=== PATIENT | female | born 1930 | race Caucasian/White ===

== ENCOUNTER 2016-10-27 21:06 | Inpatient (IN) | payer MEDICARE ==
[2016-10-27] MEDS ORDERED: ACETAMINOPHEN TAB 500 MG TAB PO STA (21:29)
[2016-10-27] MEDS ORDERED: DILTIAZEM 125 MG in SODIUM CHLORIDE 0.9% 100 ML IV ONE (21:30)
--- NOTE | 2016-10-27 22:05 | ED ---
General Adult HPI - General Chief complaint: Altered Mental Status Stated complaint: Confusion Time Seen by Provider: 10/27/16 21:09 Source: patient, family, EMS, RN notes reviewed Mode of arrival: EMS Limitations: altered mental status - History of Present Illness Initial comments: Patient is a pleasant 86-year-old female presenting to the emergency department as a transfer from [facility]. Patient was transferred for cardiology and neurology evaluation. Patient has history of atrial fibrillation and was found to have a heart rate around 1:30. Patient was started on Cardizem drip. Patient was confused. Patient was found by a friend on the floor. Unknown last time patient was well. Last known well is felt to be yesterday. They did do head CT which showed no acute findings. They do have concern for having a stroke. They felt patient was not a TPA candidate secondary to unknown onset. Patient is a poor historian. Patient does have difficulty with speech. Patient can only state a few words. - Related Data Home Medications Medication Instructions Recorded Confirmed Aspirin EC [Ecotrin] 325 mg PO DAILY 10/27/16 10/27/16 Lisinopril [Zestril] 20 mg PO DAILY 10/27/16 10/27/16 Metoprolol Tartrate [Lopressor] 100 mg PO BID 10/27/16 10/27/16 Simvastatin [Zocor] 20 mg PO DAILY 10/27/16 10/27/16 Verapamil HCl [Verapamil ER] 120 mg PO DAILY 10/27/16 10/27/16 Allergies Allergy/AdvReac Type Severity Reaction Status Date / Time Penicillins Allergy Dyspnea/JULIO Verified 10/27/16 21:39 H codeine AdvReac Nausea & Verified 10/27/16 21:39 Vomiting Review of Systems ROS Statement: Those systems with pertinent positive or pertinent negative responses have been documented in the HPI. ROS Other: All systems not noted in ROS Statement are negative. Limitations: ROS unobtainable due to patients medical condition Past Medical History Past Medical History: Atrial Fibrillation, Hypertension, Osteoarthritis (OA) History of Any Multi-Drug Resistant Organisms: None Reported Past Surgical History: Cholecystectomy, Hysterectomy, Tonsillectomy Additional Past Surgical History / Comment(s): hip surgery, knee surgery Past Psychological History: No Psychological Hx Reported Smoking Status: Never smoker Past Alcohol Use History: None Reported Past Drug Use History: None Reported General Exam Limitations: altered mental status General appearance: alert, in no apparent distress, other (Limited speech. There does appear to be some right-sided neglect.) Head exam: Present: atraumatic, normocephalic Eye exam: Present: normal appearance, PERRL, EOMI (Patient needs to be told several times to gaze to the right.) ENT exam: Present: normal oropharynx Neck exam: Present: normal inspection. Absent: tenderness Respiratory exam: Present: normal lung sounds bilaterally Cardiovascular Exam: Present: tachycardia, irregular rhythm GI/Abdominal exam: Present: soft. Absent: tenderness Extremities exam: Present: pedal edema Neurological exam: Present: alert, altered Expanded Patient oriented to: Present: person Speech: Present: receptive aphasia, expressive aphasia Cranial nerves: EOM's Intact: Normal, Facial Sensation: Normal Sensory exam: Upper Extremity Light Touch: Normal, Lower Extremity Light Touch: Normal Motor strength exam: RUE: 5 (Patient has difficulty holding arm when instructed on the right side of her body however does well was instructed on the left side. ), LUE: 5, RLE: 5, LLE: 5 Eye Response: (4) open spontaneously Motor Response: (6) obeys commands Verbal Response: (3) inappropriate words Psychiatric exam: Present: normal affect, normal mood Skin exam: Present: erythema (Erythema left fernandez) Course Vital Signs 10/27/16 10/27/16 10/27/16 21:22 21:30 21:45 Temperature 101.0 F H Pulse Rate 158 H 148 H 166 H Respiratory 19 19 19 Rate Blood Pressure 179/119 203/115 195/135 O2 Sat by Pulse 92 L 97 95 Oximetry 10/27/16 10/27/16 22:00 22:10 Temperature Pulse Rate 134 H 166 H Respiratory 18 20 Rate Blood Pressure 195/109 192/135 O2 Sat by Pulse 94 L 96 Oximetry EKG Findings - EKG Comments: EKG Findings:: A. fib with RVR, rate 136. QRS 118. QT 314. QTC 472. Right axis. Right bundle branch block. Inverted T waves inferior and lateral. Medical Decision Making - Medical Decision Making Patient reevaluated. Heart rate remains 1:30. Temperature remains 100.5. Patient will be given further fluid. Tylenol has been administered. Cardizem drip was increased to 15. Patient and family were updated on results and plan. Erythema of the left fernandez is reported as per the chronic per several family members. Nevertheless with elevated temperature patient will be treated with antibiotics for this. Following for concern of possible cellulitis patient does meet sepsis criteria diagnosed at 11 PM. Case was discussed in detail with Dr. Worthington, covering for Dr. silver, who admits for Dr. Askew. He will admit. No heparin at this time. Consults will also be placed for cardiology, neurology, and orthopedics. [facility] - Lab Data Result diagrams: 10/27/16 21:30 10/27/16 21:30 Lab Results 10/27/16 10/27/16 10/27/16 Range/Units 21:30 21:30 21:30 WBC 13.4 H (3.8-10.6) k/uL RBC 4.90 (3.80-5.40) m/uL Hgb 15.7 (11.4-16.0) gm/dL Hct 47.4 H (34.0-46.0) % MCV 96.8 (80.0-100.0) fL MCH 32.0 (25.0-35.0) pg MCHC 33.1 (31.0-37.0) g/dL RDW 16.8 H (11.5-15.5) % Plt Count 194 (150-450) k/uL Neutrophils % 90 % Lymphocytes % 6 % Monocytes % 3 % Eosinophils % 0 % Basophils % 0 % Neutrophils # 12.1 H (1.3-7.7) k/uL Lymphocytes # 0.8 L (1.0-4.8) k/uL Monocytes # 0.3 (0-1.0) k/uL Eosinophils # 0.0 (0-0.7) k/uL Basophils # 0.0 (0-0.2) k/uL Anisocytosis Slight Macrocytosis Slight PT (9.0-12.0) sec INR (<1.2) APTT (22.0-30.0) sec Sodium 144 (137-145) mmol/L Potassium 4.8 (3.5-5.1) mmol/L Chloride 112 H (98-107) mmol/L Carbon Dioxide 19 L (22-30) mmol/L Anion Gap 13 mmol/L BUN 27 H (7-17) mg/dL Creatinine 1.22 H (0.52-1.04) mg/dL Est GFR (MDRD) Af Amer 51 (>60 ml/min/1.73 sqM) Est GFR (MDRD) Non-Af 42 (>60 ml/min/1.73 sqM) Glucose 102 H (74-99) mg/dL Plasma Lactic Acid Gurdeep 2.6 H* (0.7-2.0) mmol/L Calcium 9.1 (8.4-10.2) mg/dL Total Bilirubin 1.0 (0.2-1.3) mg/dL AST 20 (14-36) U/L ALT 20 (9-52) U/L Alkaline Phosphatase 77 (38-126) U/L Total Protein 6.8 (6.3-8.2) g/dL Albumin 4.1 (3.5-5.0) g/dL Urine Color Urine Appearance (Clear) Urine pH (5.0-8.0) Ur Specific [place] (1.001-1.035) Urine Protein (Negative) Urine Glucose (UA) (Negative) Urine Ketones (Negative) Urine Blood (Negative) Urine Nitrite (Negative) Urine Bilirubin (Negative) Urine Urobilinogen (<2.0) mg/dL Ur Leukocyte Esterase (Negative) Urine RBC (0-5) /hpf Urine WBC (0-5) /hpf Urine Bacteria (None) /hpf Hyaline Casts (0-2) /lpf Urine Mucus (None) /hpf 10/27/16 10/27/16 Range/Units 21:30 21:30 WBC (3.8-10.6) k/uL RBC (3.80-5.40) m/uL Hgb (11.4-16.0) gm/dL Hct (34.0-46.0) % MCV (80.0-100.0) fL MCH (25.0-35.0) pg MCHC (31.0-37.0) g/dL RDW (11.5-15.5) % Plt Count (150-450) k/uL Neutrophils % % Lymphocytes % % Monocytes % % Eosinophils % % Basophils % % Neutrophils # (1.3-7.7) k/uL Lymphocytes # (1.0-4.8) k/uL Monocytes # (0-1.0) k/uL Eosinophils # (0-0.7) k/uL Basophils # (0-0.2) k/uL Anisocytosis Macrocytosis PT 12.8 H (9.0-12.0) sec INR 1.3 H (<1.2) APTT 23.8 (22.0-30.0) sec Sodium (137-145) mmol/L Potassium (3.5-5.1) mmol/L Chloride (98-107) mmol/L Carbon Dioxide (22-30) mmol/L Anion Gap mmol/L BUN (7-17) mg/dL Creatinine (0.52-1.04) mg/dL Est GFR (MDRD) Af Amer (>60 ml/min/1.73 sqM) Est GFR (MDRD) Non-Af (>60 ml/min/1.73 sqM) Glucose (74-99) mg/dL Plasma Lactic Acid Gurdeep (0.7-2.0) mmol/L Calcium (8.4-10.2) mg/dL Total Bilirubin (0.2-1.3) mg/dL AST (14-36) U/L ALT (9-52) U/L Alkaline Phosphatase (38-126) U/L Total Protein (6.3-8.2) g/dL Albumin (3.5-5.0) g/dL Urine Color Yellow Urine Appearance Clear (Clear) Urine pH 5.0 (5.0-8.0) Ur Specific [place] 1.015 (1.001-1.035) Urine Protein 1+ H (Negative) Urine Glucose (UA) Negative (Negative) Urine Ketones Trace H (Negative) Urine Blood Trace H (Negative) Urine Nitrite Negative (Negative) Urine Bilirubin Negative (Negative) Urine Urobilinogen <2.0 (<2.0) mg/dL Ur Leukocyte Esterase Negative (Negative) Urine RBC 1 (0-5) /hpf Urine WBC <1 (0-5) /hpf Urine Bacteria Rare H (None) /hpf Hyaline Casts 4 H (0-2) /lpf Urine Mucus Rare H (None) /hpf - Radiology Data Radiology results: image reviewed (Chest x-ray shows no acute process. X-ray of the right humerus shows severe chronic changes. Reported no definite acute fracture. X-ray of the right pelvis shows no definite acute fracture.) Critical Care Time Critical Care Time: Yes Total Critical Care Time: 32 Disposition Clinical Impression: CVA (cerebral vascular accident), Atrial fibrillation with RVR, Sepsis, Cellulitis Disposition: ADMITTED IP TO THIS HOSP Condition: Serious Referrals: Stepan Jordan DO [Primary Care Provider] - 1-2 days Decision Time: 23:01
[2016-10-27 22:06] LABS: Anisocytosis Slight; Basophils % (A) 0 %; CH 30.8; Eosinophils % (A) 0 %; HCT 47.4 % (34.0-46.0); HDW 2.43; HGB 15.7 gm/dL (11.4-16.0); Luc # (Auto) 0.16; Luc % (Auto) 1; Lymphocytes # (A) 0.8 k/uL (1.0-4.8); Lymphocytes % (A) 6 %; MCHC 33.1 g/dL (31.0-37.0); MCV 96.8 fL (80.0-100.0); Macrocytosis Slight; Mean Platelet Volume 9.4; Monocytes # (A) 0.3 k/uL (0-1.0); Monocytes % (A) 3 %; Neutrophils # (A) 12.1 k/uL (1.3-7.7); Neutrophils % (A) 90 %; RDW 16.8 % (11.5-15.5); WBC 13.4 k/uL (3.8-10.6); WBC (Perox) 12.62
[2016-10-27 22:08] LABS: Appearance,Urine Clear (Clear); Bacteria,Urine Rare /hpf; Bilirubin,Urine Negative (Negative); Glucose,Urine (UA) Negative (Negative); Ketones,Urine Trace (Negative); Leukocyte Esterase,Urine Negative (Negative); Mucus,Urine Rare /hpf; Nitrite,Urine Negative (Negative); Particle Count 1261; Protein,Urine 1+ (Negative); RBC,Urine 1 /hpf (0-5); Specific Gravity,Urine 1.015 (1.001-1.035); UA Billing (MACRO vs. MICRO) MICRO; Urobilinogen,Urine <2.0 mg/dL (<2.0); WBC,Urine <1 /hpf (0-5)
[2016-10-27] MEDS: SODIUM CHLORIDE 0.9% 500 ML IV SCH ×2 (22:13→22:46)
[2016-10-27 22:15] LABS: INR 1.3 (<1.2); Partial Thromboplastin Time 23.8 sec (22.0-30.0); Prothrombin Time 12.8 sec (9.0-12.0)
[2016-10-27 22:16] LABS: Calcium 9.1 mg/dL (8.4-10.2); Potassium 4.8 mmol/L (3.5-5.1); Total Protein 6.8 g/dL (6.3-8.2)
[2016-10-27] MEDS ORDERED: SODIUM CHLORIDE 0.9% 1,000 ML IV STA (22:37)
[2016-10-27] MEDS ORDERED: SODIUM CHLORIDE 0.9% IV STA (22:37)
--- NOTE | 2016-10-27 22:42 | XR ---
EXAM: XR Right Hip With Pelvis When Performed, 2 or 3 Views CLINICAL HISTORY: Reason: Pain TECHNIQUE: Two views of the right hip, with frontal view of the pelvis. COMPARISON: No relevant prior studies available. FINDINGS: Bones/joints: The bones are osteopenic. Previous bilateral total hip replacement, with heterotopic ossification surrounding both hips. The hip replacements appear intact on the right and where included on the left. There is no acute fracture or dislocation seen. Lower lumbar degenerative changes noted. Soft tissues: Unremarkable. Vasculature: Arterial vascular calcifications. IMPRESSION: 1. No definite evidence of acute fracture, nor hip dislocation. Note, nondisplaced fractures may initially be inapparent, for which short-term follow-up could be considered as clinically indicated. 2. 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 3. No priors.
--- NOTE | 2016-10-27 22:46 | XR ---
EXAM: XR Right Humerus, 2 or More Views CLINICAL HISTORY: Reason: Pain TECHNIQUE: Frontal and lateral views of the right humerus. COMPARISON: Current chest radiograph, dictated separately. FINDINGS: Bones/joints: There is severe chronic appearing deformity of the right shoulder, with diffuse joint space narrowing and bony remodeling involving the acromion, glenoid and humeral head and neck, along with prominent osteophyte formation. There is linear lucency through the markedly thinned glenoid, that could represent a nondisplaced fracture although of uncertain chronicity. Allowing for this marked bony remodeling, there is no definite acute fracture seen of the humerus and no evidence of dislocation. Soft tissues: No radiopaque foreign body. IMPRESSION: 1. Severe chronic remodeling of the right shoulder including proximal humerus and glenoid, where there may be a subtle nondisplaced fracture present superiorly, of indeterminate chronicity. 2. Allowing for this, no acute displaced fracture or evidence of dislocation seen.
--- NOTE | 2016-10-27 22:48 | XR ---
EXAM: XR Chest, 1 View CLINICAL HISTORY: Reason: fever TECHNIQUE: Frontal view of the chest. COMPARISON: Earlier portable chest at 1738 hrs. FINDINGS: Lungs: Minimal linear opacity suggesting atelectasis or scarring at the right base. No new or enlarging infiltrate. No overt CHF. Pleural space: Unremarkable. No pneumothorax. Heart: Stable cardiomegaly. 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 Bones/joints: Osteopenia and degenerative changes, with severe chronic appearing bony remodeling of both shoulders, right greater than left. IMPRESSION: No significant change since earlier exam of the same day, as above.
[2016-10-27] MEDS ORDERED: ASPIRIN 325 MG TAB PO STA (23:02)
[2016-10-27] MEDS ORDERED: LEVOFLOXACIN 750MG-D5W PMX 750 MG in DEXTROSE/WATER 1 150ML.BAG IVPB STA (23:03)
[2016-10-28 03:30] VITALS: BMI 31.9
[2016-10-28 06:45] LABS: Cholesterol 85 mg/dL (<200); HDL Cholesterol 36 mg/dL (40-60); Triglycerides 87 mg/dL (<150)
--- NOTE | 2016-10-28 09:20 | P.CNOR ---
History of Present Illness - [facility] Consult date: 10/28/16 Consult reason: joint pain (Bilateral shoulder pain) History of present illness: This is an 86-year-old female admitted to [facility] with possible CVA. She complains of right shoulder pain upon admission. She has no history of recent trauma or injury. She does not recall injury to the shoulder in the past or history of fracture. We're consulted for orthopedic evaluation. Past Medical History Past Medical History: Atrial Fibrillation, Heart Failure, Hypertension, Osteoarthritis (OA) Additional Past Medical History / Comment(s): Melva fever as a child History of Any Multi-Drug Resistant Organisms: None Reported Past Surgical History: Cholecystectomy, Hysterectomy, Tonsillectomy Additional Past Surgical History / Comment(s): hip surgery, knee surgery Past Anesthesia/Blood Transfusion Reactions: No Reported Reaction Past Psychological History: No Psychological Hx Reported Smoking Status: Never smoker Past Alcohol Use History: None Reported Past Drug Use History: None Reported - Past Family History Father Family Medical History: Myocardial Infarction (SC) Medications and Allergies Home Medications Medication Instructions Recorded Confirmed Type Aspirin EC [Ecotrin] 325 mg PO DAILY 10/27/16 10/27/16 History Lisinopril [Zestril] 20 mg PO DAILY 10/27/16 10/27/16 History Metoprolol Tartrate [Lopressor] 100 mg PO BID 10/27/16 10/27/16 History Simvastatin [Zocor] 20 mg PO DAILY 10/27/16 10/27/16 History Verapamil HCl [Verapamil ER] 120 mg PO DAILY 10/27/16 10/27/16 History Allergies Allergy/AdvReac Type Severity Reaction Status Date / Time Penicillins Allergy Dyspnea/JULIO Verified 10/27/16 21:39 H codeine AdvReac Nausea & Verified 10/27/16 21:39 Vomiting Physical Examination This is a pleasant 86-year-old female in no acute distress. She is alert but has some confusion. She is able to answer questions appropriately but does not recall her history very well. Her grandson is present at bedside who helps with history. Exam of the head neck reveal no obvious deformities. She has really good cervical spine motion without difficulty or pain. There is no pain on palpation about cervical spine or paraspinal musculature. Exam of the upper extremities reveals limited active motion to bilateral shoulders. I am able to passively move her through posterior full range of motion with mild pain. There is crepitus with motion of bilateral shoulders. She has fairly good elbow, wrist and finger motion without difficulty. Neurovascular status the upper extremities is intact. The patient can lift each leg off the bed independently. There is no hip pain with logroll. She has full foot and ankle motion bilaterally. Neurovascular status to the lower extremities is intact. Results X-rays of the right humerus reveal chronic degenerative changes. There are findings suspicious for remote proximal humerus fracture. No acute fractures identified. - Labs Labs: Abnormal Lab Results - Last 24 Hours (Table) 10/27/16 10/27/16 10/27/16 Range/Units 21:30 21:30 21:30 WBC 13.4 H (3.8-10.6) k/uL Hct 47.4 H (34.0-46.0) % RDW 16.8 H (11.5-15.5) % Neutrophils # 12.1 H (1.3-7.7) k/uL Lymphocytes # 0.8 L (1.0-4.8) k/uL PT (9.0-12.0) sec INR (<1.2) Chloride 112 H (98-107) mmol/L Carbon Dioxide 19 L (22-30) mmol/L BUN 27 H (7-17) mg/dL Creatinine 1.22 H (0.52-1.04) mg/dL Glucose 102 H (74-99) mg/dL Plasma Lactic Acid Gurdeep 2.6 H* (0.7-2.0) mmol/L HDL Cholesterol (40-60) mg/dL Urine Protein (Negative) Urine Ketones (Negative) Urine Blood (Negative) Urine Bacteria (None) /hpf Hyaline Casts (0-2) /lpf Urine Mucus (None) /hpf 10/27/16 10/27/16 10/28/16 Range/Units 21:30 21:30 06:12 WBC (3.8-10.6) k/uL Hct (34.0-46.0) % RDW (11.5-15.5) % Neutrophils # (1.3-7.7) k/uL Lymphocytes # (1.0-4.8) k/uL PT 12.8 H (9.0-12.0) sec INR 1.3 H (<1.2) Chloride (98-107) mmol/L Carbon Dioxide (22-30) mmol/L BUN (7-17) mg/dL Creatinine (0.52-1.04) mg/dL Glucose (74-99) mg/dL Plasma Lactic Acid Gurdeep (0.7-2.0) mmol/L HDL Cholesterol 36 L (40-60) mg/dL Urine Protein 1+ H (Negative) Urine Ketones Trace H (Negative) Urine Blood Trace H (Negative) Urine Bacteria Rare H (None) /hpf Hyaline Casts 4 H (0-2) /lpf Urine Mucus Rare H (None) /hpf H & H 10/27/16 Range/Units 21:30 Hgb 15.7 (11.4-16.0) gm/dL Hct 47.4 H (34.0-46.0) % Coagulation 10/27/16 Range/Units 21:30 INR 1.3 H (<1.2) Result Diagrams: 10/27/16 21:30 10/27/16 21:30 Assessment and Plan (1) CVA (cerebral vascular accident) Status: Acute (2) Degenerative arthritis of shoulder region Status: Acute Plan: The clinical and x-ray findings are discussed with the patient and her grandson. She is offered a cortisone injection to bilateral shoulders. I'll check with internal medicine to be sure that they're okay with the cortisone injections. I've also ordered x-rays of both shoulders. We'll continue to follow from orthopedic standpoint.
--- NOTE | 2016-10-28 09:45 | XR ---
EXAMINATION TYPE: XR shoulder limited bilateral DATE OF EXAM: 10/28/2016 CLINICAL HISTORY: Pain TECHNIQUE: Three views of the bilateral shoulders are obtained. COMPARISON: 10/27/2016 FINDINGS: Right shoulder: There is chronic elevation of the right humeral head relative to the central glenoid axis compatible with chronic rotator cuff tear. There is remodeling of the humeral head as well as th e undersurface of the acromium. Previously noted linear lucency is not verified with certainty and th is may be positional in nature. No obvious displaced fracture is identified at this time. Left shoulder: No evidence for fracture or dislocation. Degenerative spurring greater tuberosity. Mil d remodeling of the glenoid. IMPRESSION: 1. Severe degenerative changes right glenohumeral joint space with bony remodeling and changes of chr onic rotator cuff tear. No obvious displaced fracture at this time. 2. Degenerative changes in left shoulder.
--- NOTE | 2016-10-28 09:50 | US ---
EXAMINATION TYPE: US carotid duplex BILAT DATE OF EXAM: 10/28/2016 COMPARISON: CT head and brain CLINICAL HISTORY: Stenosis. CVA, Atrial fibrillation EXAM MEASUREMENTS: RIGHT: Peak Systolic Velocity (PSV) cm/sec ----- Right CCA: 51.4 ----- Right ICA: 63.6 ----- Right ECA: 83.2 ICA/CCA ratio: 1.2 RIGHT: End Diastole cm/sec ----- Right CCA: 9.5 ----- Right ICA: 19.7 ----- Right ECA: 6.5 LEFT: Peak Systolic Velocity (PSV) cm/sec ----- Left CCA: 70.7 ----- Left ICA: 81.0 ----- Left ECA: 55.0 ICA/CCA ratio: 1.1 LEFT: End Diastole cm/sec ----- Left CCA: 13.7 ----- Left ICA: 11.1 ----- Left ECA: 7.4 VERTEBRALS (direction of flow): Right Vertebral: Antegrade Left Vertebral: Antegrade Mild to moderate intimal wall thickening is noted in bilateral carotid systems, but PSV is wnl bilate rally. Cardiac arrhythmia is noted. Incidental finding of enlarged and nodular thyroid gland with lar gest discreet nodule in left thyroid (nodule size = 1.9 x 2.0 x 1.7cm. IMPRESSION: No evidence for hemodynamically significant stenosis. Criteria for Assigning % of Stenosis / Diameter reduction (Estimation based on the indirect measurements of the internal carotid artery velocities (ICA PSV). 1. Normal (no stenosis)=ICA PSV < 125 cm/s: ratio < 2.0: ICA EDV<40 cm/s. 2. Less than 50% stenosis=ICA PSV < 125 cm/s: ratio < 2.0: ICA EDV<40 cm/s. 3. 50 to 69% stenosis=ICA PSV of 125 to 230 cm/s: ration 2.0 ? 4.0: ICA EDV 40-100 cm/s. 4. Greater than 70% stenosis to near occlusion= ICA PSV > 230 cm/s: ratio > 4.0: ICA EDV > 100 cm/s. 5. Near occlusion= ICA PSV velocities may be low or undetectable: variable ratio and ICA EDV. 6. Total occlusion=unable to detect flow.
--- NOTE | 2016-10-28 10:25 | ECHOF ---
Referral Reason:Thrombus MEASUREMENTS -------- HEIGHT: 162.6 cm WEIGHT: 68.5 kg BP: 149/89 IVSd: 1.7 cm (0.6 - 1.1) LVIDd: 3.4 cm (3.9 - 5.3) LVPWd: 1.4 cm (0.6 - 1.1) IVSs: 1.7 cm LVIDs: 2.4 cm LVPWs: 1.6 cm LAESV Index (A-L): 87.15 ml/m Ao Diam: 2.9 cm (2.0 - 3.7) AV Cusp: 1.8 cm (1.5 - 2.6) LA Diam: 4.8 cm (2.7 - 3.8) MV EXCURSION: 11.106 mm (> 18.000) MV EF SLOPE: 67 mm/s (70 - 150) EPSS: 0.1 cm MV E Lee: 1.62 m/s MV DecT: 269 ms MV A Lee: 0.39 m/s MV E/A Ratio: 4.18 RAP: 15.00 mmHg RVSP: 73.89 mmHg FINDINGS -------- Atrial fibrillation. This was a technically good study. The left ventricular size is normal. There is moderate concentric left ventricular hypertrophy. Overall left ventricular systolic function is normal with, an EF between 55 - 60 %. The right ventricle is normal in size and function. LA is severely dilated >40 ml/m2 RA appears enlarged. There is mild aortic valve sclerosis. The mitral valve leaflets are moderately thickened. Moderate mitral annular calcification present. [id number] mitral regurgitation is present. Moderate to severe tricuspid regurgitation present. There is severe pulmonary hypertension. The right ventricular systolic pressure, as measured by Doppler, is 73.89mmHg. There is no pulmonic regurgitation present. The aortic root size is normal. There is no pericardial effusion. CONCLUSIONS -------- 1. Atrial fibrillation. 2. Moderate to severe tricuspid regurgitation present. 3. There is severe pulmonary hypertension. 4. There is no pulmonic regurgitation present. 5. The aortic root size is normal. 6. There is no pericardial effusion. 7. This was a technically good study. 8. There is moderate concentric left ventricular hypertrophy. 9. Overall left ventricular systolic function is normal with, an EF between 55 - 60 %. 10. LA is severely dilated >40 ml/m2 11. RA appears enlarged. 12. There is mild aortic valve sclerosis. 13. Moderate mitral annular calcification present. 14. [id number] mitral regurgitation is present. LANDFILL GRADER: Viridiana Araujo RDCS
--- NOTE | 2016-10-28 12:07 | P.CRDCN ---
History of Present Illness Consult date: 10/28/16 Reason for Consult (text): atrial fibrillation with RVR Chief complaint: confusion, fall History of present illness: This is a pleasantly confused 86-year-old female patient, HPI was obtained from the records to the patient's confusion. Limited review of systems was also obtained as patient cannot recall events surrounding her admission, was clearly found on the floor by a neighbor but denies falling and being found on the floor. She apparently has a known history of atrial fibrillation and hypertension. She has not been on anticoagulation at home for unknown reasons however likely secondary to fall risk and risk of bleeding. She initially presented to the emergency department at [facility] after being found on the floor by a friend patient was confused and is unknown the last time the patient was in her normal state. Computed tomography scan done showed no acute findings. She was found to be in each fibrillation with rapid ventricular response and started on Cardizem drip. 2-D echo with Doppler done this morning shows normal systolic function with an ejection fraction of 55-60% , severely dilated LA, enlarged RA, mild aortic valve sclerosis, mild to moderate mitral regurgitation and moderate to severe tricuspid regurgitation with severe pulmonary hypertension. On examination this morning, patient is resting comfortably in bed. Again she is fairly confused, unclear as to whether or not she follows with a nurse transitional. She does not recall falling or being found on the floor. Cardizem drip remains at 15 mg an hour with her heart rate controlled at this time. Laboratory values showed an elevated white blood cell count and lactic acid level and a BUN of 27 and creatinine 1.22. Past Medical History Past Medical History: Atrial Fibrillation, Heart Failure, Hypertension, Osteoarthritis (OA) Additional Past Medical History / Comment(s): Melva fever as a child History of Any Multi-Drug Resistant Organisms: None Reported Past Surgical History: Cholecystectomy, Hysterectomy, Tonsillectomy Additional Past Surgical History / Comment(s): hip surgery, knee surgery Past Anesthesia/Blood Transfusion Reactions: No Reported Reaction Past Psychological History: No Psychological Hx Reported Smoking Status: Never smoker Past Alcohol Use History: None Reported Past Drug Use History: None Reported - Past Family History Father Family Medical History: Myocardial Infarction ([place]) Medications and Allergies Home Medications Medication Instructions Recorded Confirmed Type Aspirin EC [Ecotrin] 325 mg PO DAILY 10/27/16 10/27/16 History Lisinopril [Zestril] 20 mg PO DAILY 10/27/16 10/27/16 History Metoprolol Tartrate [Lopressor] 100 mg PO BID 10/27/16 10/27/16 History Simvastatin [Zocor] 20 mg PO DAILY 10/27/16 10/27/16 History Verapamil HCl [Verapamil ER] 120 mg PO DAILY 10/27/16 10/27/16 History Allergies Allergy/AdvReac Type Severity Reaction Status Date / Time Penicillins Allergy Dyspnea/JULIO Verified 10/27/16 21:39 H codeine AdvReac Nausea & Verified 10/27/16 21:39 Vomiting Physical Exam Vitals: Vital Signs Temp Pulse Pulse Resp BP BP Pulse Ox 10/28/16 08:00 97.1 F L 98 16 96/67 95 10/28/16 04:00 97.3 F L 105 H 18 126/89 93 L 10/28/16 00:00 98.6 F 144 H 18 149/89 94 L 10/27/16 23:28 144 H 19 170/97 10/27/16 22:57 100.5 F H 148 H 19 187/101 96 10/27/16 22:50 130 H 20 190/91 94 L 10/27/16 22:35 140 H 19 227/128 96 10/27/16 22:10 166 H 20 192/135 96 10/27/16 22:00 134 H 18 195/109 94 L 10/27/16 21:45 166 H 19 195/135 95 10/27/16 21:30 148 H 19 203/115 97 10/27/16 21:22 101.0 F H 158 H 19 179/119 92 L Intake and Output 10/27/16 10/28/16 10/28/16 22:59 06:59 14:59 Intake Total 4393 800 Output Total 600 Balance -600 4393 800 Intake: Intake, IV Titration 2620 800 Amount Levofloxacin 750Mg-D5w 100 Pmx 750 mg In Dextrose/ Water 1 150ml.bag @ 100 mls/hr IVPB Q24H T[facility]ENCE Rx#: [id number] Sodium Chloride 0.9% 1, 800 000 ml @ 100 mls/hr IV . Q10H TERRENCE Rx#:[id number] Sodium Chloride 0.9% 1, 2520 000 ml @ 999 mls/hr IV . Q1H1M STA Rx#:[id number] Oral 1773 Output: Urine 600 Other: Voiding Method Bedpan Weight 84.368 kg 68.5 kg PHYSICAL EXAMINATION: HEENT: Head is atraumatic, normocephalic. Pupils equal, round. Neck is supple. There is no elevated jugular venous pressure. HEART EXAMINATION: Heart sounds irregularly irregular, S1 and S2 normal with a systolic murmur. CHEST EXAMINATION: Lungs are clear to auscultation and precussion. No chest wall tenderness is noted on palpation or with deep breathing. ABDOMEN: Soft, nontender. Bowel sounds are heard. No organomegaly noted. EXTREMITIES: Diminished peripheral pulses with evidence of 2+ peripheral edema and evidence of lower leg cellulitis. NEUROLOGIC patient is awake, alert and oriented to person. . Results 10/27/16 21:30 10/27/16 21:30 Cardiac Enzymes 10/27/16 Range/Units 21:30 AST 20 (14-36) U/L Coagulation 10/27/16 Range/Units 21:30 PT 12.8 H (9.0-12.0) sec APTT 23.8 (22.0-30.0) sec Lipids 10/28/16 Range/Units 06:12 Triglycerides 87 (<150) mg/dL Cholesterol 85 (<200) mg/dL HDL Cholesterol 36 L (40-60) mg/dL CBC 10/27/16 Range/Units 21:30 WBC 13.4 H (3.8-10.6) k/uL RBC 4.90 (3.80-5.40) m/uL Hgb 15.7 (11.4-16.0) gm/dL Hct 47.4 H (34.0-46.0) % Plt Count 194 (150-450) k/uL Comprehensive Metabolic Panel 10/27/16 Range/Units 21:30 Sodium 144 (137-145) mmol/L Potassium 4.8 (3.5-5.1) mmol/L Chloride 112 H (98-107) mmol/L Carbon Dioxide 19 L (22-30) mmol/L BUN 27 H (7-17) mg/dL Creatinine 1.22 H (0.52-1.04) mg/dL Glucose 102 H (74-99) mg/dL Calcium 9.1 (8.4-10.2) mg/dL AST 20 (14-36) U/L ALT 20 (9-52) U/L Alkaline Phosphatase 77 (38-126) U/L Total Protein 6.8 (6.3-8.2) g/dL Albumin 4.1 (3.5-5.0) g/dL Current Medications Generic Name Dose Route Start Last Admin Trade Name Freq PRN Reason Stop Dose Admin Aspirin 325 mg 10/28/16 23:03 Aspirin PO DAILY T[facility]ENCE Levofloxacin 750 mg/ IV 150 mls @ 100 mls/hr 10/29/16 09:00 Solution IVPB Q48H [facility] Sodium Chloride 1,000 mls @ 75 mls/hr 10/28/16 10:45 Saline 0.9% IV .[id number] TERRENCE Methylprednisolone Acetate 40 mg 10/29/16 09:00 Depo-Medrol INTRAARTIC 10/29/16 09:01 ONCE ONE Methylprednisolone Acetate 40 mg 10/29/16 09:00 Depo-Medrol INTRAARTIC 10/29/16 09:01 ONCE ONE Metoprolol Tartrate 50 mg 10/28/16 10:45 Lopressor PO TID TERRENCE Verapamil HCl 40 mg 10/28/16 10:45 Isoptin PO BID TERRENCE Intake and Output 10/27/16 10/28/16 10/28/16 22:59 06:59 14:59 Intake Total 4393 800 Output Total 600 Balance -600 4393 800 Intake: Intake, IV Titration 2620 800 Amount Levofloxacin 750Mg-D5w 100 Pmx 750 mg In Dextrose/ Water 1 150ml.bag @ 100 mls/hr IVPB Q24H TERRENCE Rx#: [id number] Sodium Chloride 0.9% 1, 800 000 ml @ 100 mls/hr IV . Q10H TERRENCE Rx#:[id number] Sodium Chloride 0.9% 1, 2520 000 ml @ 999 mls/hr IV . Q1H1M STA Rx#:[id number] Oral 1773 Output: Urine 600 Other: Voiding Method Bedpan Weight 84.368 kg 68.5 kg 10/27/16 21:30 10/27/16 21:30 EKG Interpretations (text) Atrial fibrillation Assessment and Plan Plan: Assessment and plan #1 probable CVA #2 atrial fibrillation, likely chronic, with rapid ventricular response #3 hypertension #4 confusion #5 fall Cardiology's perspective, we will start the patient on verapamil 40 mg by mouth twice a day as well as metoprolol tartrate 50 mg by mouth 3 times a day. We will stop the IV Cardizem. We'll continue to follow the patient and provide further recommendations accordingly. CATERING SERVICE MANAGER note has been reviewed, I agree with a documented findings and plan of care. Patient was seen and examined.
[2016-10-28] MEDS: METOPROLOL TARTRATE 50 MG TAB PO SCH ×3 (12:26→23:40)
[2016-10-28] MEDS: VERAPAMIL 40 MG TAB PO SCH ×2 (12:26→20:55)
[2016-10-28] MEDS: SODIUM CHLORIDE 0.9% 1,000 ML IV SCH ×2 (12:26→23:42)
--- NOTE | 2016-10-28 14:07 | P.HPIM ---
History of Present Illness H&P Date: 10/28/16 Chief Complaint: Altered mental status Ms. Katz is a 70-year-old female with a known history of acute fibrillation, Chronic, hypertension and are sure that this presented to emergency room as a transfer from [facility]. Apparently patient was found in the floor by her neighbor but the patient denied any fall. Patient was later taken to [facility]. Patient was found to be in atrial fibrillation with a rapid ventricular rate of 130. Patient was subsequently transferred to [facility] for evaluation by cardiology and neurology. Patient was very confused at the time and CT head was done which was negative as per the records. Otherwise the patient is a poor historian. Patient denies any complaints of fever chills recently. No cough or sputum production. No recent illnesses. Patient does have chronic lower except swelling/lymphedema for a long time. Patient was prescribed Lasix previously but she does not want to take it. Patient was initially started on Cardizem drip. Heart rate is better controlled now. Patient was also was dehydrated and her lactic acid was elevated which is normalized now. Cardiology has seen the patient and her vehicle was done showed normal ejection fraction of 55-60% and a severely dilated left atrium and enlarged right atrium with mild aortic wall sclerosis and moderate mitral regurgitation and moderate to severe tricuspid regurgitation and severe pulmonary hypertension. Review of Systems Constitutional: Patient denies any fever or chills . No generalized weakness or weight loss. Abdomen: Patient denied nausea vomiting and diarrhea and abdominal pain. Cardiovascular: Patient denies any chest pain or short of breath no palpitations. Respiratory: patient denied any cough is from production. No shortness of breath Neurologic: Patient denied any numbness or tingling headache. Musculoskeletal: Patient denies any complaints of joint swelling or deformity. Skin: Patient does have left wrist skin wound. Patient does have a chronic bilateral lower extremity swelling Psychiatric: Negative Endocrine: No heat or cold intolerance. No recent weight gain. Genitourinary: No dysuria or hematuria. Complete review of stones could not be a peripheral the patient patient is a poor historian. Past Medical History Past Medical History: Atrial Fibrillation, Heart Failure, Hypertension, Osteoarthritis (OA) Additional Past Medical History / Comment(s): Melva fever as a child History of Any Multi-Drug Resistant Organisms: None Reported Past Surgical History: Cholecystectomy, Hysterectomy, Tonsillectomy Additional Past Surgical History / Comment(s): hip surgery, knee surgery Past Anesthesia/Blood Transfusion Reactions: No Reported Reaction Past Psychological History: No Psychological Hx Reported Smoking Status: Never smoker Past Alcohol Use History: None Reported Past Drug Use History: None Reported - Past Family History Father Family Medical History: Myocardial Infarction ([place]) Medications and Allergies Home Medications Medication Instructions Recorded Confirmed Type Aspirin EC [Ecotrin] 325 mg PO DAILY 10/27/16 10/27/16 History Lisinopril [Zestril] 20 mg PO DAILY 10/27/16 10/27/16 History Metoprolol Tartrate [Lopressor] 100 mg PO BID 10/27/16 10/27/16 History Simvastatin [Zocor] 20 mg PO DAILY 10/27/16 10/27/16 History Verapamil HCl [Verapamil ER] 120 mg PO DAILY 10/27/16 10/27/16 History Allergies Allergy/AdvReac Type Severity Reaction Status Date / Time Penicillins Allergy Dyspnea/JULIO Verified 10/27/16 21:39 H codeine AdvReac Nausea & Verified 10/27/16 21:39 Vomiting Physical Exam Vitals: Vital Signs Temp Pulse Pulse Resp BP BP Pulse Ox 10/28/16 08:00 97.1 F L 98 16 96/67 95 10/28/16 04:00 97.3 F L 105 H 18 126/89 93 L 10/28/16 00:00 98.6 F 144 H 18 149/89 94 L 10/27/16 23:28 144 H 19 170/97 10/27/16 22:57 100.5 F H 148 H 19 187/101 96 10/27/16 22:50 130 H 20 190/91 94 L 10/27/16 22:35 140 H 19 227/128 96 10/27/16 22:10 166 H 20 192/135 96 10/27/16 22:00 134 H 18 195/109 94 L 10/27/16 21:45 166 H 19 195/135 95 10/27/16 21:30 148 H 19 203/115 97 10/27/16 21:22 101.0 F H 158 H 19 179/119 92 L Intake and Output 10/27/16 10/28/16 10/28/16 22:59 06:59 14:59 Intake Total 4393 800 Output Total 600 Balance -600 4393 800 Intake: Intake, IV Titration 2620 800 Amount Levofloxacin 750Mg-D5w 100 Pmx 750 mg In Dextrose/ Water 1 150ml.bag @ 100 mls/hr IVPB Q24H [facility] Rx#: [id number] Sodium Chloride 0.9% 1, 800 000 ml @ 100 mls/hr IV . Q10H [facility]ENCE Rx#:[id number] Sodium Chloride 0.9% 1, 2520 000 ml @ 999 mls/hr IV . Q1H1M STA Rx#:[id number] Oral 1773 Output: Urine 600 Other: Voiding Method Bedpan Weight 84.368 kg 68.5 kg PHYSICAL EXAMINATION: Patient is lying in the bed comfortably, no acute distress, awake alert and oriented.. Able to communicate. HEENT: Normocephalic. Neck is supple. Pupils reactive. Nostrils clear. Oral cavity is moist. Ears reveal no drainage. Neck reveals no JVD, carotid bruits, or thyromegaly. CHEST EXAMINATION: Trachea is central. Symmetrical expansion. Bilateral lower lobe wheezing and no crackles heard. CARDIAC: Normal S1, S2 with no gallops. Systolic murmur. Pulses irregularly irregular ABDOMEN: Soft. Bowel sounds normal. No organomegaly. No abdominal bruits. Extremities: reveal 3+ edema. No clubbing or cyanosis, venostasis changes Neurologically awake, alert, oriented x3 with well-coordinated movements. No focal deficits noted Skin: No rash or skin lesions. Psychiatric: Operative. Nonsuicidal Musculoskeletal: No joint swelling or deformity. Normal range of motion. Results CBC & Chem 7: 10/27/16 21:30 10/27/16 21:30 Labs: Abnormal Lab Results - Last 24 Hours (Table) 10/27/16 10/27/16 10/27/16 Range/Units 21:30 21:30 21:30 WBC 13.4 H (3.8-10.6) k/uL Hct 47.4 H (34.0-46.0) % RDW 16.8 H (11.5-15.5) % Neutrophils # 12.1 H (1.3-7.7) k/uL Lymphocytes # 0.8 L (1.0-4.8) k/uL PT (9.0-12.0) sec INR (<1.2) Chloride 112 H (98-107) mmol/L Carbon Dioxide 19 L (22-30) mmol/L BUN 27 H (7-17) mg/dL Creatinine 1.22 H (0.52-1.04) mg/dL Glucose 102 H (74-99) mg/dL Plasma Lactic Acid Gurdeep 2.6 H* (0.7-2.0) mmol/L HDL Cholesterol (40-60) mg/dL Urine Protein (Negative) Urine Ketones (Negative) Urine Blood (Negative) Urine Bacteria (None) /hpf Hyaline Casts (0-2) /lpf Urine Mucus (None) /hpf 10/27/16 10/27/16 10/28/16 Range/Units 21:30 21:30 06:12 WBC (3.8-10.6) k/uL Hct (34.0-46.0) % RDW (11.5-15.5) % Neutrophils # (1.3-7.7) k/uL Lymphocytes # (1.0-4.8) k/uL PT 12.8 H (9.0-12.0) sec INR 1.3 H (<1.2) Chloride (98-107) mmol/L Carbon Dioxide (22-30) mmol/L BUN (7-17) mg/dL Creatinine (0.52-1.04) mg/dL Glucose (74-99) mg/dL Plasma Lactic Acid Gurdeep (0.7-2.0) mmol/L HDL Cholesterol 36 L (40-60) mg/dL Urine Protein 1+ H (Negative) Urine Ketones Trace H (Negative) Urine Blood Trace H (Negative) Urine Bacteria Rare H (None) /hpf Hyaline Casts 4 H (0-2) /lpf Urine Mucus Rare H (None) /hpf Microbiology - Last 24 Hours (Table) 10/27/16 21:30 Urine Culture - Preliminary Urine,Catheterized Thrombosis Risk Factor Assmnt - DVT/VTE Prophylaxis DVT/VTE Prophylaxis: Pharmacologic Prophylaxis ordered - Choose All That Apply Each Factor Represents 1 point: Swollen legs (current) Each Risk Factor Represents 3 Points: Elevated anticardiolipin antibodies Each Risk Factor Represents 5 Points: Stroke (< 1 month) Thrombosis Risk Factor Assessment Total Risk Factor Score: 9 Thrombosis Risk Factor Assessment Level: High Risk Assessment and Plan Plan: #1 altered mental status. Possible metabolic encephalopathy with dehydration and also atrial fibrillation #2 possible CVA/TIA. CT head was negative at [facility]. Patient denied any fall. #3 atrial fibrillation with rapid ventricular rate. #4 history of chronic atrial fibrillation #5 hypertension #6 degenerative joint disease. #7 left shoulder pain secondary to DJD #8 abnormal urine sample. unlikely UTI. Will follow up cultures. Patient was initially started on levofloxacin #9 acute kidney injury site due to volume depletion. #10 lactic Acidosis likely due to volume depletion. Improved with hydration. 11 severe pulmonary hypertension with moderate to severe tricuspid regurgitation. DVT prophylaxis. PLAN: Patient will be continued on gentle hydration. Patient had carotid duplex and 2 -D echo was done. Patient will be continued on metoprolol 50 mg by mouth 3 times a day and verapamil has been added. We will continue the telemetry monitoring. Neurology and cardiology is following this patient Time with Patient: Greater than 30
--- NOTE | 2016-10-28 16:29 | P.CNNES ---
History of Present Illness Consult date: 10/28/16 Reason for Consult: Patient admitted with altered mental status and possible stroke. History of Present Illness: This patient is a 86-year-old right-handed white female who apparently yesterday was found collapsed on her floor by her neighbor. Apparently she found her on the floor and she appeared to be quite confused at that time. The neighbor called EMS and the patient was taken to [facility] emergency room for further evaluation. She was sent for a computed tomography scan of the brain at the hospital which was reported to be negative for any acute changes. The patient was found to have evidence of atrial fibrillation. Apparently she has a history of atrial fibrillation in the past. She has not been on any anticoagulation at home likely secondary to her risk of fall and risk of bleeding. She was started on a Cardizem drip and then transferred to [facility] for further evaluation. The patient states that yesterday she was having word finding difficulties. She could not express herself the way she normally does. Today this speech has shown some improvement. She denied any headache or focal weakness but does have bilateral shoulder pain. This is being evaluated further by orthopedic surgery. The patient did undergo a echocardiogram today. This reveals an ejection fraction of 55-60%. There was severely dilated left atrium. Mild aortic valve sclerosis was also noted. Cardiology has been consulted and we are waiting further recommendations from them. On further questioning the patient denies any previous history of TIA or stroke. She does have history of hypertension and hyperlipidemia in the past which are stroke risk factors along with the atrial fibrillation. Apparently she had been taking one adult aspirin at home on a regular basis. She had been using Zocor 20 mg daily for treatment of her hyperlipidemia. The patient underwent a carotid Doppler ultrasound today which is reported to be negative for any carotid artery stenosis. Family members at bedside have noted some improvement with her mental status today but her speech still seems to be slightly off. The patient is now been admitted and neurology has been consulted for further evaluation and recommendations. Review of Systems Constitutional: Denies chills, Denies fever Eyes: denies blurred vision, denies pain Ears, nose, mouth and throat: Denies headache, Denies sore throat Cardiovascular: Denies chest pain, Denies shortness of breath Respiratory: Denies cough Gastrointestinal: Denies abdominal pain, Denies diarrhea, Denies nausea, Denies vomiting Genitourinary: Denies dysuria, Denies hematuria Musculoskeletal: Denies myalgias Integumentary: Denies pruritus, Denies rash Neurological: Reports change in mentation, Reports change in speech, Reports memory loss, Denies numbness, Denies weakness Psychiatric: Denies anxiety, Denies depression Endocrine: Denies fatigue, Denies weight change Past Medical History Past Medical History: Atrial Fibrillation, Heart Failure, Hypertension, Osteoarthritis (OA) Additional Past Medical History / Comment(s): Melva fever as a child History of Any Multi-Drug Resistant Organisms: None Reported Past Surgical History: Cholecystectomy, Hysterectomy, Tonsillectomy Additional Past Surgical History / Comment(s): hip surgery, knee surgery Past Anesthesia/Blood Transfusion Reactions: No Reported Reaction Past Psychological History: No Psychological Hx Reported Smoking Status: Never smoker Past Alcohol Use History: None Reported Past Drug Use History: None Reported - Past Family History Father Family Medical History: Myocardial Infarction (AL) Medications and Allergies Home Medications Medication Instructions Recorded Confirmed Type Aspirin EC [Ecotrin] 325 mg PO DAILY 10/27/16 10/27/16 History Lisinopril [Zestril] 20 mg PO DAILY 10/27/16 10/27/16 History Metoprolol Tartrate [Lopressor] 100 mg PO BID 10/27/16 10/27/16 History Simvastatin [Zocor] 20 mg PO DAILY 10/27/16 10/27/16 History Verapamil HCl [Verapamil ER] 120 mg PO DAILY 10/27/16 10/27/16 History Allergies Allergy/AdvReac Type Severity Reaction Status Date / Time Penicillins Allergy Dyspnea/JULIO Verified 10/27/16 21:39 H codeine AdvReac Nausea & Verified 10/27/16 21:39 Vomiting Physical Examination - Vital Signs Vital Signs: Vital Signs Temp Pulse Pulse Resp BP BP Pulse Ox 10/28/16 12:00 97.1 F L 119 H 16 136/100 95 10/28/16 08:00 97.1 F L 98 16 96/67 95 10/28/16 04:00 97.3 F L 105 H 18 126/89 93 L 10/28/16 00:00 98.6 F 144 H 18 149/89 94 L 10/27/16 23:28 144 H 19 170/97 10/27/16 22:57 100.5 F H 148 H 19 187/101 96 10/27/16 22:50 130 H 20 190/91 94 L 10/27/16 22:35 140 H 19 227/128 96 10/27/16 22:10 166 H 20 192/135 96 10/27/16 22:00 134 H 18 195/109 94 L 10/27/16 21:45 166 H 19 195/135 95 10/27/16 21:30 148 H 19 203/115 97 10/27/16 21:22 101.0 F H 158 H 19 179/119 92 L Intake and Output 10/28/16 10/28/16 10/28/16 06:59 14:59 22:59 Intake Total 4393 1160 Balance 4393 1160 Intake: Intake, IV Titration 2620 800 Amount Levofloxacin 750Mg-D5w 100 Pmx 750 mg In Dextrose/ Water 1 150ml.bag @ 100 mls/hr IVPB Q24H [facility] Rx#: [id number] Sodium Chloride 0.9% 1, 800 000 ml @ 100 mls/hr IV . Q10H [facility] Rx#:[id number] Sodium Chloride 0.9% 1, 2520 000 ml @ 999 mls/hr IV . Q1H1M [facility] Rx#:[id number] Oral 1773 360 Other: Voiding Method Bedpan # Voids 1 # Bowel Movements 1 Weight 68.5 kg - Constitutional General appearance: average body habitus, cooperative - EENT EENT: PERRL, mucous membranes moist - Respiratory Respiratory: lungs clear, normal breath sounds - Cardiovascular Cardiovascular: regular rate, normal S1, normal S2 Extremities: no peripheral edema bilaterally - Gastrointestinal Gastrointestinal: normoactive bowel sounds - Integumentary Integumentary: normal - Neurologic Cranial nerve examination: PERRL, EOMI, VFF, V1/V2/V3 grossly intact, tongue midline, intact gag reflex, intact corneal reflex, normal palatal elevation Speech examination: motor aphasia Sensorimotor examination: intact Motor examination - right side: 4/5: biceps, triceps, wrist flexion, wrist extension, shot hole driller, hip flexors, knee extensors, dorsiflexion, toe extension (EHL) , plantarflexion Motor examination - left side: 4/5: biceps, triceps, wrist flexion, wrist extension, shot hole driller, hip flexors, knee extensors, dorsiflexion, toe extension (EHL) , plantarflexion Detailed sensory examination: intact Reflex and gait examination: intact Reflexes: 1+: ankle, bicep, knee, tricep - Musculoskeletal Musculoskeletal: no pain - Psychiatric Psychiatric: mood/affect appropriate, cooperative Results - Laboratory Findings CBC and BMP: 10/27/16 21:30 10/27/16 21:30 Abnormal Lab Findings: Abnormal Labs 10/27/16 10/27/16 10/27/16 21:30 21:30 21:30 WBC 13.4 H Hct 47.4 H RDW 16.8 H Neutrophils # 12.1 H Lymphocytes # 0.8 L PT INR Chloride 112 H Carbon Dioxide 19 L BUN 27 H Creatinine 1.22 H Glucose 102 H Plasma Lactic Acid Gurdeep 2.6 H* HDL Cholesterol Urine Protein Urine Ketones Urine Blood Urine Bacteria Hyaline Casts Urine Mucus 10/27/16 10/27/16 10/28/16 21:30 21:30 06:12 WBC Hct RDW Neutrophils # Lymphocytes # PT 12.8 H INR 1.3 H Chloride Carbon Dioxide BUN Creatinine Glucose Plasma Lactic Acid Gurdeep HDL Cholesterol 36 L Urine Protein 1+ H Urine Ketones Trace H Urine Blood Trace H Urine Bacteria Rare H Hyaline Casts 4 H Urine Mucus Rare H Assessment and Plan (1) Left acute arterial ischemic stroke, MCA (middle cerebral artery) Status: Acute Code(s): I63.512 - CEREB INFRC D/T UNSP OCCLS OR STENOS OF LEFT MID CEREB ART (2) Atrial fibrillation with RVR Status: Acute Code(s): I48.91 - UNSPECIFIED ATRIAL FIBRILLATION (3) Cellulitis Status: Acute Code(s): L03.90 - CELLULITIS, UNSPECIFIED (4) Degenerative arthritis of shoulder region Status: Acute Code(s): M19.019 - PRIMARY OSTEOARTHRITIS, UNSPECIFIED SHOULDER Plan: This patient is a 86-year-old right-handed white female who apparently was found collapsed in her home by a neighbor. She was taken to the local hospital in [place] and was seen at [facility] where she was evaluated. She underwent a CAT scan of the brain which was reported negative for any acute changes. She was then transferred to the [facility] for further stroke evaluation and cardiac assessment. Patient has a history of atrial fibrillation. She was initially started on a Cardizem drip at [facility]. She is now been seen by cardiology and we are awaiting any further recommendations. She apparently has not been on any anticoagulation for her history of the atrial fibrillation. Her neurological examination reveals her to have bilateral upper extremity weakness probably secondary to osteoarthritis of the shoulder joints. She also has evidence of mild word finding difficulties and mild expressive aphasia. We have recommended she undergo an MRI of the brain for further evaluation of acute stroke. She may need anticoagulation for further treatment of her atrial fibrillation. Await further recommendations from cardiology. Her overall prognosis at this time remains very guarded. Time with Patient: Greater than 30
--- NOTE | 2016-10-28 18:51 | US ---
EXAMINATION TYPE: US venous doppler duplex LE DATE OF EXAM: 10/28/2016 6:41 PM COMPARISON: NONE CLINICAL HISTORY: Left leg swelling and calf pain.. SIDE PERFORMED: Bilateral TECHNIQUE: The lower extremity deep venous system is examined utilizing real time linear array sonog dasia with graded compression, doppler sonography and color-flow sonography. VESSELS IMAGED: External Iliac Vein (EIV) Common Femoral Vein Deep Femoral Vein Greater Saphenous Vein * Femoral Vein Popliteal Vein Small Saphenous Vein * Proximal Calf Veins (* superficial vessels) Limited compression of left popliteal vein patient unable to tolerate well. Right Leg: Negative for DVT Left Leg: Negative for DVT IMPRESSION: Negative exam. No evidence of deep venous thrombosis in both legs.
[2016-10-28] MEDS: HEPARIN SODIUM,PORCINE 5,000 UNIT/ML 1 ML VIAL SQ SCH (20:55)
[2016-10-28] MEDS ORDERED: LEVOFLOXACIN 750MG-D5W PMX 750 MG in DEXTROSE/WATER 1 150ML.BAG IVPB SCH (23:00)
[2016-10-28] MEDS: ASPIRIN 325 MG TAB PO SCH (23:40)
[2016-10-29] MEDS: HEPARIN SODIUM,PORCINE 5,000 UNIT/ML 1 ML VIAL SQ SCH ×2 (07:50→21:38)
[2016-10-29] MEDS: METOPROLOL TARTRATE 50 MG TAB PO SCH ×3 (07:50→21:38)
[2016-10-29] MEDS: VERAPAMIL 40 MG TAB PO SCH ×2 (07:50→21:51)
[2016-10-29] MEDS: ASPIRIN 325 MG TAB PO SCH (07:50)
[2016-10-29] MEDS: SODIUM CHLORIDE 0.9% 1,000 ML IV SCH ×2 (08:00→11:42)
[2016-10-29] MEDS ORDERED: IPRATROPIUM-ALBUTEROL 3 ML NEB INHALATION PRN (08:11)
[2016-10-29] MEDS ORDERED: methylPREDNISolone ACETATE 40 MG/ML 1 ML VIAL INTRAARTIC ONE ×2 (09:00)
[2016-10-29] MEDS ORDERED: LEVOFLOXACIN 750MG-D5W PMX 750 MG in DEXTROSE/WATER 1 150ML.BAG IVPB SCH (09:00)
--- NOTE | 2016-10-29 11:08 | MR ---
EXAMINATION TYPE: MR brain wo con DATE OF EXAM: 10/29/2016 COMPARISON: NONE HISTORY: Acute left hemispheric stroke T1-weighted sagittal, T2, FLAIR, and diffusion axial, and T2 coronal coronal views of the brain are s ubmitted. There is no evidence of acute ischemia. Changes of moderate generalized degenerative change. Changes of chronic sinusitis noted. Diffuse and focal areas of abnormal signal within the white matter bilaterally are nonspecific Craniocervical junction maintained. Sella turcica is limited in assessment. Changes of chronic sinusi tis noted. Numerous small area of abnormal signal within the basal ganglia bilaterally can be associa jeffery with prominent Virchow-Brian spaces or remote tiny lacunar infarction. Abnormal signal within the beba suggestive of remote microvascular ischemia. No cerebellopontine angle mass. There is absence of the normal signal void within the left carotid ca nal. IMPRESSION: 1. No evidence of acute ischemia however, there is absence of the normal signal void within the inte rnal carotid artery within the carotid canal bilaterally greater on the left which can occasionally b e seen with acute thrombosis or chronic occlusion. No diffusion evidence to suggest acute ischemia. R ecommend correlation with stat CTA head and neck. Patient's nurse immediately notified. 2. Degenerative and nonspecific white matter changes may be on the basis of remote microvascular isch emia. A Red message has been communicated to Gabriel Roque MD~[id number] via the [employer] Critical Result system on 10/29/2016 11:01 AM, Message ID [id number].
[2016-10-29] MEDS: IPRATROPIUM-ALBUTEROL 3 ML NEB INHALATION SCH ×3 (11:10→20:16)
[2016-10-29] MEDS ORDERED: RX INFO: IV CONTRAST WAS GIVEN 1 EACH MISC MISCELLANE PRN (11:18)
--- NOTE | 2016-10-29 12:58 | CT ---
EXAMINATION TYPE: CT angio head neck DATE OF EXAM: 10/29/2016 COMPARISON: MRI 10/29/2016 HISTORY: Abn MRI, CVA CT DLP: 813 mGycm CONTRAST: Performed with IV Contrast, patient injected with 65 mL of Visipaque 320. Combination Contrast CTA cervical carotids and [place] of [place] CTA cervical carotids with 3-D recons truction Contrast CTA of the cervical carotids was performed 3-D reconstruction imaging obtained at a separate workstation. Right carotid system: Mild plaque is seen of the right common carotid artery. There is mild plaque a lso noted at the carotid bulb and proximal ICA. No significant diameter reduction. ECA is patent. Right vertebral artery appears unremarkable. Left carotid system: Mild plaque is seen of the left common carotid artery. There is mild plaque als o noted at the carotid bulb and proximal ICS. No significant diameter reduction. ECA is patent. Lef t vertebral artery appears unremarkable. Incidentally there is enlargement of the thyroid lobes with multiple thyroid nodules identified. Find ings likely reflect goiter. Small bilateral pleural effusions. Subcentimeter mediastinal lymph nodes. IMPRESSION: 1. No significant diameter reduction to account for the patient's symptoms. CTA [place] with 3-D reconstruction Contrast CTA of the [place] of [place] was performed 3-D reconstruction imaging obtained at a separate workstation. Vertebrobasilar system as well as intracranial portions of the internal carotid arteries and their [place] tributaries are patent. I do not see evidence for sizable aneurysm or vascular malformation. Pl ease note MRI provides greater sensitivity and specificity. Visualized brain appears grossly unremar kable. IMPRESSION: 1. No siginificant abnormality.
[2016-10-29] MEDS ORDERED: FUROSEMIDE 10 MG/ML 4 ML VIAL IV STA (13:03)
[2016-10-29 13:46] LABS: Anisocytosis Slight; Basophils % (A) 0 %; CH 31.1; CHCM 32.4; Eosinophils # (A) 0.2 k/uL (0-0.7); Eosinophils % (A) 2 %; HCT 42.6 % (34.0-46.0); HDW 2.35; HGB 13.9 gm/dL (11.4-16.0); Luc # (Auto) 0.16; Luc % (Auto) 2; Lymphocytes # (A) 0.8 k/uL (1.0-4.8); Lymphocytes % (A) 10 %; MCH 31.6 pg (25.0-35.0); MCHC 32.6 g/dL (31.0-37.0); MCV 96.8 fL (80.0-100.0); Macrocytosis Slight; Mean Platelet Volume 10.9; Monocytes # (A) 0.4 k/uL (0-1.0); Monocytes % (A) 5 %; Neutrophils # (A) 6.3 k/uL (1.3-7.7); Neutrophils % (A) 80 %; RDW 16.6 % (11.5-15.5); WBC 7.9 k/uL (3.8-10.6); WBC (Perox) 8.14
[2016-10-29 14:10] LABS: Calcium 8.5 mg/dL (8.4-10.2); Potassium 4.9 mmol/L (3.5-5.1)
--- NOTE | 2016-10-29 14:20 | P.PN ---
Subjective This is a pleasantly confused 86-year-old female patient, HPI was obtained from the records to the patient's confusion. Limited review of systems was also obtained as patient cannot recall events surrounding her admission, was clearly found on the floor by a neighbor but denies falling and being found on the floor. The patient brenda confused but is somewhat less confused today. She apparently has a known history of atrial fibrillation and hypertension. She has not been on anticoagulation at home likely secondary to fall risk and risk of bleeding. Her platelets are also low. She initially presented to the emergency department at [facility] after being found on the floor by a friend patient was confused and is unknown the last time the patient was in her normal state. Computed tomography scan done showed no acute findings. She was found to be in each fibrillation with rapid ventricular response and started on Cardizem drip. 2-D echo with Doppler done this morning shows normal systolic function with an ejection fraction of 55-60%, severely dilated LA, enlarged RA, mild aortic valve sclerosis, mild to moderate mitral regurgitation and moderate to severe tricuspid regurgitation with severe pulmonary hypertension. On examination this morning, patient is resting comfortably in bed. She remains in atrial fibrillation with a controlled ventricular response currently on verapamil 40 mg by mouth twice a day and metoprolol 50 mg by mouth 3 times a day. She did undergo a MRI this morning that showed possible acute thrombosis or acute occlusion of the carotid arteries however CTA of the head and neck were negative. Objective - Vital Signs Vital signs: Vital Signs Temp 97 F L 10/29/16 11:15 Pulse 76 10/29/16 11:20 Resp 18 10/29/16 11:15 BP 166/109 10/29/16 11:15 Pulse Ox 98 10/29/16 11:15 Intake & Output 10/28/16 10/29/16 10/29/16 18:59 06:59 18:59 Intake Total 1640 600 311 Output Total 200 Balance 1640 400 311 Weight 70 kg Intake: Intake, IV Titration 800 600 75 Amount Sodium Chloride 0.9% 1, 800 000 ml @ 100 mls/hr IV . Q10H [facility] Rx#:[id number] Sodium Chloride 0.9% 1, 600 75 000 ml @ 75 mls/hr IV . [id number] [facility] Rx#:[id number] Oral 840 236 Output: Urine 200 Other: Voiding Method Bedpan Bedpan Bedpan Incontinent Incontinent # Voids 1 1 # Bowel Movements 1 - Exam PHYSICAL EXAMINATION: HEENT: Head is atraumatic, normocephalic. Pupils equal, round. Neck is supple. There is no elevated jugular venous pressure. HEART EXAMINATION: Heart sounds irregularly irregular, S1 and S2 normal with a systolic murmur. CHEST EXAMINATION: Lungs are clear to auscultation and precussion. No chest wall tenderness is noted on palpation or with deep breathing. ABDOMEN: Soft, nontender. Bowel sounds are heard. No organomegaly noted. EXTREMITIES: Diminished peripheral pulses with evidence of 2+ peripheral edema and evidence of lower leg cellulitis. NEUROLOGIC patient is awake, alert and oriented to person. - Labs CBC & Chem 7: 10/29/16 13:35 10/29/16 13:35 Labs: Abnormal Lab Results - Last 24 Hours (Table) 10/29/16 10/29/16 Range/Units 13:35 13:35 RDW 16.6 H (11.5-15.5) % Plt Count 111 L (150-450) k/uL Lymphocytes # 0.8 L (1.0-4.8) k/uL Chloride 116 H (98-107) mmol/L Carbon Dioxide 15 L (22-30) mmol/L BUN 23 H (7-17) mg/dL Creatinine 1.19 H (0.52-1.04) mg/dL Microbiology - Last 24 Hours (Table) 10/27/16 21:30 Urine Culture - Final Urine,Catheterized 10/27/16 23:09 Blood Culture - Preliminary Blood No Growth after 24 hours 10/27/16 21:30 Blood Culture - Preliminary Blood No Growth after 24 hours Assessment and Plan Plan: Assessment and plan #1 probable CVA #2 atrial fibrillation, likely chronic, with rapid ventricular response #3 hypertension #4 confusion #5 fall Cardiology's perspective, continue verapamil 40 mg by mouth twice a day as well as metoprolol tartrate 50 mg by mouth 3 times a day. The patient is not a good candidate for long-term anticoagulation due to low platelet count as well as high risk for falls and bleeding. The above dictated assessment and findings were discussed with signing physician. The impression and plan of care have been directed as dictated. Cynthia Florentino, Nurse Practitioner, acting as scribe for signing physician.
[2016-10-29] MEDS ORDERED: LIDOCAINE 2% INJ 20 MG/ML (20 ML MDV) ONE (16:17)
--- NOTE | 2016-10-29 19:57 | P.PN ---
Subjective This patient is a 86 year old female seen yesterday for Neurology consultation for possible TIA vs. stroke. The patient presented with symptoms of confusion and new onset of atrial fibrillation. She has not been on anticoagulation for the atrial fibrillation. She was having word finding difficulties and symptoms suggesting possibility of stroke. She was sent for MRI of the brain today for further evaluation. MRI revealed no evidence of acute ischemia however there was absence of normal signal void within the carotid artery and carotid canals bilaterally rate her on the left versus the right. There was concern for possibility of occlusion due to thrombosis. CTA angiogram was recommended. Patient was sent for CTA angiogram of the head and neck. This study came back negative for any evidence of occlusive disease or aneurysm. We have reviewed all of these test results today with the patient. As noted her MRI failed to reveal any evidence of acute stroke. She remains in atrial fibrillation with a controlled ventricular response. She is currently on verapamil twice a day and metipranolol 3 times a day. We're waiting further recommendations from cardiology regarding further management of her atrial fibrillation. Apparently this appears to be likely chronic in nature. The patient is not a good candidate for long-term anticoagulation due to her low platelet count and high risk of falls. We will continue to follow her overall condition closely during this admission. Her overall prognosis at this time remains guarded. Objective - Vital Signs Vital signs: Vital Signs Temp 97 F L 10/29/16 07:55 Pulse 76 10/29/16 07:55 Resp 20 10/29/16 07:55 BP 169/93 10/29/16 07:55 Pulse Ox 93 L 10/29/16 07:55 Intake & Output 10/28/16 10/29/16 10/29/16 18:59 06:59 18:59 Intake Total 1640 600 236 Output Total 200 Balance 1640 400 236 Weight 70 kg Intake: Intake, IV Titration 800 600 Amount Sodium Chloride 0.9% 1, 800 000 ml @ 100 mls/hr IV . Q10H [facility] Rx#:[id number] Sodium Chloride 0.9% 1, 600 000 ml @ 75 mls/hr IV . [id number] [facility] Rx#:[id number] Oral 840 236 Output: Urine 200 Other: Voiding Method Bedpan Bedpan Bedpan Incontinent Incontinent # Voids 1 1 # Bowel Movements 1 - Exam Physical examination: PHYSICAL EXAMINATION: Patient is resting comfortably in bed. VITAL SIGNS: Blood pressure is [160/93]. Heart rate is [77]. Respiration is [18] . Temperature is [97.5]. HEENT: Head is atraumatic, neck is supple, there were no carotid bruits. CHEST: Lungs are clear to auscultation and percussion. CARDIAC: S1, S2 normal rate and rhythm. There is no murmur. ABDOMEN: Soft and nontender. Bowel sounds are present. EXTREMITIES: There is no pedal edema. Peripheral pulses are present. Neurological examination: Patient's neurological examination is unchanged from yesterday. - Labs CBC & Chem 7: 10/29/16 13:35 10/29/16 13:35 Labs: Microbiology - Last 24 Hours (Table) 10/27/16 23:09 Blood Culture - Preliminary Blood No Growth after 24 hours 10/27/16 21:30 Blood Culture - Preliminary Blood No Growth after 24 hours 10/27/16 21:30 Urine Culture - Preliminary Urine,Catheterized Assessment and Plan (1) Left acute arterial ischemic stroke, MCA (middle cerebral artery) Status: Acute Code(s): I63.512 - CEREB INFRC D/T UNSP OCCLS OR STENOS OF LEFT MID CEREB ART (2) Atrial fibrillation with RVR Status: Acute Code(s): I48.91 - UNSPECIFIED ATRIAL FIBRILLATION (3) Cellulitis Status: Acute Code(s): L03.90 - CELLULITIS, UNSPECIFIED (4) Degenerative arthritis of shoulder region Status: Acute Code(s): M19.019 - PRIMARY OSTEOARTHRITIS, UNSPECIFIED SHOULDER Plan: This patient is a 86-year-old right-handed white female who was admitted to hospital yesterday with episode of slurred speech and difficulty getting her words out. She was found at home and was brought into the emergency room. She was subsequently admitted to the hospital for further evaluation of possible stroke. She was found to have new onset of atrial fibrillation. She was seen by cardiology who feel that she is likely had chronic atrial fibrillation. She is currently being treated for this condition and is taking verapamil and metipranolol. She is not a good candidate for long-term anticoagulation due to low platelet count and high risk for falls. Patient was sent for MRI of the brain today which initially indicated no evidence of acute stroke. MRI did suggest possibility of carotid artery occlusion. She was sent for an emergency statin CTA angiogram of the head and neck this morning which came back negative for any occlusive disease or aneurysm. The patient is now resting comfortably. We will continue close neurological follow-up of this patient during this admission. Her overall prognosis at this time remains very guarded.
--- NOTE | 2016-10-30 01:15 | P.PN ---
Subjective Principal diagnosis: Afib with RVR and Altered mental status Ms. Katz is a 70-year-old female with a known history of acute fibrillation, Chronic, hypertension and are sure that this presented to emergency room as a transfer from [facility]. Apparently patient was found in the floor by her neighbor but the patient denied any fall. Patient was later taken to [facility]. Patient was found to be in atrial fibrillation with a rapid ventricular rate of 130. Patient was subsequently transferred to [facility] for evaluation by cardiology and neurology. Patient was very confused at the time and CT head was done which was negative as per the records. Otherwise the patient is a poor historian. Patient denies any complaints of fever chills recently. No cough or sputum production. No recent illnesses. Patient does have chronic lower except swelling/lymphedema for a long time. Patient was prescribed Lasix previously but she does not want to take it. Patient was initially started on Cardizem drip. Heart rate is better controlled now. Patient was also was dehydrated and her lactic acid was elevated which is normalized now. Cardiology has seen the patient and her vehicle was done showed normal ejection fraction of 55-60% and a severely dilated left atrium and enlarged right atrium with mild aortic wall sclerosis and moderate mitral regurgitation and moderate to severe tricuspid regurgitation and severe pulmonary hypertension. 0n 10/29/16 Pt. is awake and oriented at baseline. no overnight issues. pt. says she is tired of tests. no fever/chills. She did undergo a MRI this morning that showed possible acute thrombosis or acute occlusion of the carotid arteries however CTA of the head and neck were negative.Pt. was seen by neurology. Abdomen: Patient denied nausea vomiting and diarrhea and abdominal pain. Cardiovascular: Patient denies any chest pain or short of breath no palpitations. Respiratory: patient denied any cough is from production. No shortness of breath Neurologic: Patient denied any numbness or tingling headache. Musculoskeletal: Patient denies any complaints of joint swelling or deformity. Objective - Vital Signs Vital signs: Vital Signs Temp 98.3 F 10/29/16 20:00 Pulse 94 10/29/16 20:00 Resp 18 10/29/16 20:00 BP 160/138 10/29/16 20:00 Pulse Ox 96 10/29/16 20:00 Intake & Output 10/29/16 10/29/16 10/30/16 06:59 18:59 06:59 Intake Total 600 311 Output Total 200 Balance 400 311 Weight 70 kg Intake: Intake, IV Titration 600 75 Amount Sodium Chloride 0.9% 1, 600 75 000 ml @ 75 mls/hr IV . [id number] [facility] Rx#:[id number] Oral 236 Output: Urine 200 Other: Voiding Method Bedpan Bedpan Bedpan Incontinent Incontinent Incontinent # Voids 1 - Exam Patient is lying in the bed comfortably, no acute distress, awake alert and oriented.. Able to communicate. HEENT: Normocephalic. Neck is supple. Pupils reactive. Nostrils clear. Oral cavity is moist. Ears reveal no drainage. Neck reveals no JVD, carotid bruits, or thyromegaly. CHEST EXAMINATION: Trachea is central. Symmetrical expansion. Bilateral lower lobe wheezing and no crackles heard. CARDIAC: Normal S1, S2 with no gallops. Systolic murmur. Pulses irregularly irregular ABDOMEN: Soft. Bowel sounds normal. No organomegaly. No abdominal bruits. Extremities: reveal 3+ edema. No clubbing or cyanosis, venostasis changes Neurologically awake, alert, oriented x3 with well-coordinated movements. No focal deficits noted Skin: No rash or skin lesions. Psychiatric: Operative. Nonsuicidal Musculoskeletal: No joint swelling or deformity. Normal range of motion. - Labs CBC & Chem 7: 10/29/16 13:35 10/29/16 13:35 Labs: Abnormal Lab Results - Last 24 Hours (Table) 10/29/16 10/29/16 Range/Units 13:35 13:35 RDW 16.6 H (11.5-15.5) % Plt Count 111 L (150-450) k/uL Lymphocytes # 0.8 L (1.0-4.8) k/uL Chloride 116 H (98-107) mmol/L Carbon Dioxide 15 L (22-30) mmol/L BUN 23 H (7-17) mg/dL Creatinine 1.19 H (0.52-1.04) mg/dL Microbiology - Last 24 Hours (Table) 10/27/16 21:30 Urine Culture - Final Urine,Catheterized 10/27/16 23:09 Blood Culture - Preliminary Blood No Growth after 24 hours 10/27/16 21:30 Blood Culture - Preliminary Blood No Growth after 24 hours Assessment and Plan Plan: #1 altered mental status. Possible metabolic encephalopathy with dehydration and also atrial fibrillation #2 possible CVA/TIA. CT head was negative at [facility]. Patient denied any fall. #3 atrial fibrillation with rapid ventricular rate. #4 history of chronic atrial fibrillation #5 hypertension #6 degenerative joint disease. #7 left shoulder pain secondary to DJD #8 abnormal urine sample. unlikely UTI. Will follow up cultures. Patient was initially started on levofloxacin #9 acute kidney injury due to volume depletion. #10 lactic Acidosis likely due to volume depletion. Improved with hydration. 11 severe pulmonary hypertension with moderate to severe tricuspid regurgitation. 12,. chronic LE swelling/ lymphedema DVT prophylaxis. PLAN: Patient had carotid duplex and 2-D echo was done. MRI and CT angigram were done. negative w/u Patient will be continued on metoprolol 50 mg by mouth 3 times a day and verapamil has been added. HR controlled. Urine cx showed no growth. DCed abx. We will continue the telemetry monitoring. Neurology and cardiology is following this patient Possible transfer to [facility]. Time with Patient: Greater than 30
[2016-10-30] MEDS: IPRATROPIUM-ALBUTEROL 3 ML NEB INHALATION SCH ×4 (07:50→19:33)
[2016-10-30] MEDS: VERAPAMIL 40 MG TAB PO SCH (07:53)
[2016-10-30] MEDS: ASPIRIN 325 MG TAB PO SCH (07:53)
[2016-10-30] MEDS: HEPARIN SODIUM,PORCINE 5,000 UNIT/ML 1 ML VIAL SQ SCH ×2 (07:53→21:26)
[2016-10-30] MEDS: METOPROLOL TARTRATE 50 MG TAB PO SCH ×3 (07:53→21:26)
--- NOTE | 2016-10-30 11:32 | EEG ---
DATE OF EE10/29/16 ELECTROENCEPHALOGRAPHIC EXAMINATION REPORT: INDICATIONS FOR EXAMINATION: This patient is an 86 year old female being evaluated for altered mental status and TIA. AGE: 86 EEG FINDINGS: A routine 21 channel awake digital EEG recording was accomplished utilizing the 10-20 international system with bipolar and referential montages. The background activity in the most alert resting state consists of a low amplitude, poorly developed and poorly sustained 5-6 Hz activity over the posterior head regions. This posterior rhythm attenuates minimally to eye opening. There is a small amount of low amplitude 18-20 Hz beta activity seen maximally over the anterior head regions. Muscle and movement artifact was observed on a few occasions during the tracing. Hyperventilation was not performed. Photic stimulation at flash frequencies of 2 -30 Hz produced a minimal occipital driving response. No epileptiform discharges were seen. IMPRESSION: This EEG gives evidence of a severe widespread diffuse disturbance in cerebral function. The EEG failed to reveal any focal, lateralized, or epileptiform abnormalities. If clinically indicated, a follow up EEG is recommended. Clinical correlation is recommended. DON
--- NOTE | 2016-10-30 12:53 | P.PN ---
Subjective Principal diagnosis: A. fib This is a pleasantly confused 86-year-old female patient, HPI was obtained from the records to the patient's confusion. Limited review of systems was also obtained as patient cannot recall events surrounding her admission, was clearly found on the floor by a neighbor but denies falling and being found on the floor. The patient brenda confused but is somewhat less confused today. She apparently has a known history of atrial fibrillation and hypertension. She has not been on anticoagulation at home likely secondary to fall risk and risk of bleeding. Her platelets are also low. She initially presented to the emergency department at [facility] after being found on the floor by a friend patient was confused and is unknown the last time the patient was in her normal state. Computed tomography scan done showed no acute findings. She was found to be in each fibrillation with rapid ventricular response and started on Cardizem drip. 2-D echo with Doppler done this morning shows normal systolic function with an ejection fraction of 55-60%, severely dilated LA, enlarged RA, mild aortic valve sclerosis, mild to moderate mitral regurgitation and moderate to severe tricuspid regurgitation with severe pulmonary hypertension. Time of our examination this morning, patient is sleeping comfortably in bed. She remains in atrial fibrillation, heart rate under adequate control. Patient did undergo an MRI which revealed possible acute thrombosis or acute occlusion of the carotid arteries however the CT of the head and neck were negative. Objective - Vital Signs Vital signs: Vital Signs Temp 96.9 F L 10/30/16 11:52 Pulse 65 10/30/16 11:52 Resp 18 10/30/16 11:52 BP 149/90 10/30/16 11:52 Pulse Ox 98 10/30/16 11:52 Intake & Output 10/29/16 10/30/16 10/30/16 18:59 06:59 18:59 Intake Total 311 10 0 Output Total 1000 Balance 311 -990 0 Weight 68 kg Intake: IV 10 0 .9 10 0 Intake, IV Titration 75 Amount Sodium Chloride 0.9% 1, 75 000 ml @ 75 mls/hr IV . [id number] [facility] Rx#:[id number] Oral 236 Output: Urine 1000 Other: Voiding Method Bedpan Bedpan Bedpan Incontinent Incontinent Incontinent - Exam PHYSICAL EXAMINATION: HEENT: Head is atraumatic, normocephalic. Pupils equal, round. Neck is supple. There is no elevated jugular venous pressure. HEART EXAMINATION: Heart sounds irregularly irregular, S1 and S2 normal with a systolic murmur. CHEST EXAMINATION: Lungs are clear to auscultation and precussion. No chest wall tenderness is noted on palpation or with deep breathing. ABDOMEN: Soft, nontender. Bowel sounds are heard. No organomegaly noted. EXTREMITIES: Diminished peripheral pulses with evidence of 2+ peripheral edema and evidence of lower leg cellulitis. NEUROLOGIC patient is awake, alert and oriented to person. - Labs CBC & Chem 7: 10/29/16 13:35 10/29/16 13:35 Labs: Abnormal Lab Results - Last 24 Hours (Table) 10/29/16 10/29/16 Range/Units 13:35 13:35 RDW 16.6 H (11.5-15.5) % Plt Count 111 L (150-450) k/uL Lymphocytes # 0.8 L (1.0-4.8) k/uL Chloride 116 H (98-107) mmol/L Carbon Dioxide 15 L (22-30) mmol/L BUN 23 H (7-17) mg/dL Creatinine 1.19 H (0.52-1.04) mg/dL Microbiology - Last 24 Hours (Table) 10/27/16 23:09 Blood Culture - Preliminary Blood No Growth after 48 hours 10/27/16 21:30 Blood Culture - Preliminary Blood No Growth after 48 hours 10/27/16 21:30 Urine Culture - Final Urine,Catheterized Assessment and Plan Plan: Assessment and plan #1 probable CVA #2 atrial fibrillation, likely chronic, with rapid ventricular response #3 hypertension #4 confusion #5 fall Cardiology's perspective, continue verapamil 40 mg by mouth twice a day as well as metoprolol tartrate 50 mg by mouth 3 times a day. The patient is not a good candidate for long-term anticoagulation due to low platelet count as well as high risk for falls and bleeding. We will follow this patient with you now on an as-needed basis only, please hesitate to call with any questions.
--- NOTE | 2016-10-30 13:49 | P.PN ---
Subjective Afib with RVR and Altered mental status Ms. Katz is a 70-year-old female with a known history of acute fibrillation, Chronic, hypertension and are sure that this presented to emergency room as a transfer from [facility]. Apparently patient was found in the floor by her neighbor but the patient denied any fall. Patient was later taken to [facility]. Patient was found to be in atrial fibrillation with a rapid ventricular rate of 130. Patient was subsequently transferred to [facility] for evaluation by cardiology and neurology. Patient was very confused at the time and CT head was done which was negative as per the records. Otherwise the patient is a poor historian. Patient denies any complaints of fever chills recently. No cough or sputum production. No recent illnesses. Patient does have chronic lower except swelling/lymphedema for a long time. Patient was prescribed Lasix previously but she does not want to take it. Patient was initially started on Cardizem drip. Heart rate is better controlled now. Patient was also was dehydrated and her lactic acid was elevated which is normalized now. Cardiology has seen the patient and her vehicle was done showed normal ejection fraction of 55-60% and a severely dilated left atrium and enlarged right atrium with mild aortic wall sclerosis and moderate mitral regurgitation and moderate to severe tricuspid regurgitation and severe pulmonary hypertension. 0n 10/29/16 Pt. is awake and oriented at baseline. no overnight issues. pt. says she is tired of tests. no fever/chills. She did undergo a MRI this morning that showed possible acute thrombosis or acute occlusion of the carotid arteries however CTA of the head and neck were negative.Pt. was seen by neurology. 10/30/2016 Patient is awake denies having any additional complaints. Patient apparently at home was able to ambulate with a cane has some help with the other ADL support Today patient denies having any headaches blurry vision nausea vomiting or diarrhea Objective - Vital Signs Vital signs: Vital Signs Temp 96.9 F L 10/30/16 11:52 Pulse 65 10/30/16 11:52 Resp 18 10/30/16 11:52 BP 149/90 10/30/16 11:52 Pulse Ox 98 10/30/16 11:52 Intake & Output 10/29/16 10/30/16 10/30/16 18:59 06:59 18:59 Intake Total 311 10 0 Output Total 1000 Balance 311 -990 0 Weight 68 kg Intake: IV 10 0 .9 10 0 Intake, IV Titration 75 Amount Sodium Chloride 0.9% 1, 75 000 ml @ 75 mls/hr IV . [id number] [facility] Rx#:[id number] Oral 236 Output: Urine 1000 Other: Voiding Method Bedpan Bedpan Bedpan Incontinent Incontinent Incontinent - Exam Physical exam Gen. appearance oriented 3 in no distress Neck is supple no JVD Lungs good air entry clear to auscultation no rhonchi or wheezing Heart S1-S2 heard regular rate and rhythm no murmurs appreciated Abdomen is soft nontender no organomegaly bowel sounds are intact Neurologically cranial nerves II-12 grossly intact no focal motor or sensory deficits noted Gross weakness in all 4 extremity strength is about 4 out of 5 Skin no abnormalities appreciated - Labs CBC & Chem 7: 10/29/16 13:35 10/29/16 13:35 Labs: Abnormal Lab Results - Last 24 Hours (Table) 10/29/16 10/29/16 Range/Units 13:35 13:35 RDW 16.6 H (11.5-15.5) % Plt Count 111 L (150-450) k/uL Lymphocytes # 0.8 L (1.0-4.8) k/uL Chloride 116 H (98-107) mmol/L Carbon Dioxide 15 L (22-30) mmol/L BUN 23 H (7-17) mg/dL Creatinine 1.19 H (0.52-1.04) mg/dL Microbiology - Last 24 Hours (Table) 10/27/16 23:09 Blood Culture - Preliminary Blood No Growth after 48 hours 10/27/16 21:30 Blood Culture - Preliminary Blood No Growth after 48 hours 10/27/16 21:30 Urine Culture - Final Urine,Catheterized Assessment and Plan Plan: #1 acute metabolic encephalopathy #2 chronic atrial fibrillation with rapid ventricular rate #3 suspected CVA ruled out #4 essential hypertension #5 degenerative disc disease of the left shoulder #6 lactic acidosis due to dehydration causing #1 #7 chronic lymphedema in the lower extremity left #8 asymptomatic bacteria #9 acute kidney injury due to dehydration #11 severe pulmonary hypertension due to valvular disease Plan Continue ongoing care CT angiogram was negative Patient can be discharged to an ECF when accepted Patient's heart rate is controlled no anticoagulation at this time
--- NOTE | 2016-10-30 14:20 | P.PN ---
Subjective This patient is a 86 year old female seen yesterday for Neurology consultation for possible TIA vs. stroke. The patient presented with symptoms of confusion and new onset of atrial fibrillation. She has not been on anticoagulation for the atrial fibrillation. She was having word finding difficulties and symptoms suggesting possibility of stroke. She was sent for MRI of the brain today for further evaluation. MRI revealed no evidence of acute ischemia however there was absence of normal signal void within the carotid artery and carotid canals bilaterally rate her on the left versus the right. There was concern for possibility of occlusion due to thrombosis. CTA angiogram was recommended. Patient was sent for CTA angiogram of the head and neck. This study came back negative for any evidence of occlusive disease or aneurysm. We have reviewed all of these test results today with the patient. As noted her MRI failed to reveal any evidence of acute stroke. She remains in atrial fibrillation with a controlled ventricular response. She is currently on verapamil twice a day and metipranolol 3 times a day. We're waiting further recommendations from cardiology regarding further management of her atrial fibrillation. Apparently this appears to be likely chronic in nature. The patient is not a good candidate for long-term anticoagulation due to her low platelet count and high risk of falls. Patient is awaiting possible discharge at [facility] when bed is available. Neurologically she remains intact with no further changes since admission. Patient remains in atrial fibrillation. Heart rate is under adequate control. As noted her MRI of the brain failed to reveal any evidence of acute stroke. CTA angiogram was negative for thrombosis or aneurysm. We will continue to follow her overall condition closely during this admission. Her overall prognosis at this time remains guarded. Objective - Vital Signs Vital signs: Vital Signs Temp 96.9 F L 10/30/16 11:52 Pulse 64 10/30/16 12:15 Resp 18 10/30/16 11:52 BP 149/90 10/30/16 11:52 Pulse Ox 98 10/30/16 11:52 Intake & Output 10/29/16 10/30/16 10/30/16 18:59 06:59 18:59 Intake Total 311 10 0 Output Total 1000 Balance 311 -990 0 Weight 68 kg Intake: IV 10 0 .9 10 0 Intake, IV Titration 75 Amount Sodium Chloride 0.9% 1, 75 000 ml @ 75 mls/hr IV . [id number] [facility] Rx#:[id number] Oral 236 Output: Urine 1000 Other: Voiding Method Bedpan Bedpan Bedpan Incontinent Incontinent Incontinent - Exam Physical examination: PHYSICAL EXAMINATION: Patient is resting comfortably in bed. VITAL SIGNS: Blood pressure is [149/90]. Heart rate is [65]. Respiration is [18] . Temperature is [96.9]. HEENT: Head is atraumatic, neck is supple, there were no carotid bruits. CHEST: Lungs are clear to auscultation and percussion. CARDIAC: S1, S2 normal rate and rhythm. There is no murmur. ABDOMEN: Soft and nontender. Bowel sounds are present. EXTREMITIES: There is no pedal edema. Peripheral pulses are present. Neurological examination: Patient's neurological examination is unchanged from yesterday. - Labs CBC & Chem 7: 10/29/16 13:35 10/29/16 13:35 Labs: Abnormal Lab Results - Last 24 Hours (Table) 10/29/16 Range/Units 13:35 Chloride 116 H (98-107) mmol/L Carbon Dioxide 15 L (22-30) mmol/L BUN 23 H (7-17) mg/dL Creatinine 1.19 H (0.52-1.04) mg/dL Microbiology - Last 24 Hours (Table) 10/27/16 23:09 Blood Culture - Preliminary Blood No Growth after 48 hours 10/27/16 21:30 Blood Culture - Preliminary Blood No Growth after 48 hours 10/27/16 21:30 Urine Culture - Final Urine,Catheterized Assessment and Plan (1) Left acute arterial ischemic stroke, MCA (middle cerebral artery) Status: Acute Code(s): I63.512 - CEREB INFRC D/T UNSP OCCLS OR STENOS OF LEFT MID CEREB ART (2) Atrial fibrillation with RVR Status: Acute Code(s): I48.91 - UNSPECIFIED ATRIAL FIBRILLATION (3) Cellulitis Status: Acute Code(s): L03.90 - CELLULITIS, UNSPECIFIED (4) Degenerative arthritis of shoulder region Status: Acute Code(s): M19.019 - PRIMARY OSTEOARTHRITIS, UNSPECIFIED SHOULDER Plan: This patient is a 86-year-old right-handed white female who was admitted to hospital yesterday with episode of slurred speech and difficulty getting her words out. She was found at home and was brought into the emergency room. She was subsequently admitted to the hospital for further evaluation of possible stroke. She was found to have new onset of atrial fibrillation. She was seen by cardiology who feel that she is likely had chronic atrial fibrillation. She is currently being treated for this condition and is taking verapamil and metipranolol. She is not a good candidate for long-term anticoagulation due to low platelet count and high risk for falls. Patient was sent for MRI of the brain today which initially indicated no evidence of acute stroke. MRI did suggest possibility of carotid artery occlusion. She was sent for an emergency statin CTA angiogram of the head and neck this morning which came back negative for any occlusive disease or aneurysm. The patient is now resting comfortably. Patient seems to be back to baseline level of function. She has evidence of a diffuse metabolic encephalopathy which is improving. As noted MRI of the brain failed to reveal any evidence of acute stroke. She is being evaluated for possible discharge to ECF once bed is available. Continue further recommendations per cardiology. She does have chronic atrial fibrillation and is not a candidate for anticoagulation at this time as per cardiology. We will continue close neurological follow-up of this patient during this admission. Her overall prognosis at this time remains very guarded.
[2016-10-30] MEDS: DILTIAZEM 125 MG in SODIUM CHLORIDE 0.9% 100 ML IV SCH (20:25)
[2016-10-31] MEDS: DILTIAZEM 125 MG in SODIUM CHLORIDE 0.9% 100 ML IV SCH (06:51)
[2016-10-31] MEDS: IPRATROPIUM-ALBUTEROL 3 ML NEB INHALATION SCH ×4 (07:30→20:42)
[2016-10-31] MEDS: HEPARIN SODIUM,PORCINE 5,000 UNIT/ML 1 ML VIAL SQ SCH ×2 (08:44→21:45)
[2016-10-31] MEDS: ASPIRIN 325 MG TAB PO SCH (08:44)
[2016-10-31] MEDS: METOPROLOL TARTRATE 50 MG TAB PO SCH ×3 (08:44→21:44)
[2016-10-31] MEDS: VERAPAMIL 80 MG TAB PO SCH ×2 (15:03→21:44)
[2016-10-31] MEDS: SODIUM BICARBONATE TAB 650 MG TAB PO SCH ×3 (15:03→21:44)
--- NOTE | 2016-10-31 15:23 | P.PN ---
Subjective Afib with RVR and Altered mental status Ms. Katz is a 70-year-old female with a known history of acute fibrillation, Chronic, hypertension and are sure that this presented to emergency room as a transfer from [facility]. Apparently patient was found in the floor by her neighbor but the patient denied any fall. Patient was later taken to [facility]. Patient was found to be in atrial fibrillation with a rapid ventricular rate of 130. Patient was subsequently transferred to [facility] for evaluation by cardiology and neurology. Patient was very confused at the time and CT head was done which was negative as per the records. Otherwise the patient is a poor historian. Patient denies any complaints of fever chills recently. No cough or sputum production. No recent illnesses. Patient does have chronic lower except swelling/lymphedema for a long time. Patient was prescribed Lasix previously but she does not want to take it. Patient was initially started on Cardizem drip. Heart rate is better controlled now. Patient was also was dehydrated and her lactic acid was elevated which is normalized now. Cardiology has seen the patient and her vehicle was done showed normal ejection fraction of 55-60% and a severely dilated left atrium and enlarged right atrium with mild aortic wall sclerosis and moderate mitral regurgitation and moderate to severe tricuspid regurgitation and severe pulmonary hypertension. 0n 10/29/16 Pt. is awake and oriented at baseline. no overnight issues. pt. says she is tired of tests. no fever/chills. She did undergo a MRI this morning that showed possible acute thrombosis or acute occlusion of the carotid arteries however CTA of the head and neck were negative.Pt. was seen by neurology. 10/30/2016 Patient is awake denies having any additional complaints. Patient apparently at home was able to ambulate with a cane has some help with the other ADL support Today patient denies having any headaches blurry vision nausea vomiting or diarrhea 10/31/2016 Patient is awake denies having any additional complaints Objective - Vital Signs Vital signs: Vital Signs Temp 95.0 F L 10/31/16 12:00 Pulse 75 10/31/16 12:00 Resp 18 10/31/16 12:00 BP 156/93 10/31/16 12:00 Pulse Ox 96 10/31/16 12:00 Intake & Output 10/30/16 10/31/16 10/31/16 18:59 06:59 18:59 Intake Total 120 154.333 Output Total 800 Balance 120 154.333 -800 Weight 72.5 kg Intake: IV 0 50 .9 0 10 Diltiazem 125 mg In 40 Sodium Chloride 0.9% 100 ml @ 10 MG/HR 10 mls/hr IV .[id number] ON LICENSE OF [facility] Rx#: [id number] Intake, IV Titration 104.333 Amount Diltiazem 125 mg In 104.333 Sodium Chloride 0.9% 100 ml @ 10 MG/HR 10 mls/hr IV .[id number] [facility] Rx#: [id number] Oral 120 Output: Urine 800 Other: Voiding Method Bedpan Bedpan Bedpan Incontinent Incontinent Incontinent # Voids 1 1 # Bowel Movements 0 - Exam Physical exam Gen. appearance oriented 3 in no distress Neck is supple no JVD Lungs good air entry clear to auscultation no rhonchi or wheezing Heart S1-S2 heard regular rate and rhythm no murmurs appreciated Abdomen is soft nontender no organomegaly bowel sounds are intact Neurologically cranial nerves II-12 grossly intact no focal motor or sensory deficits noted Gross weakness in all 4 extremity strength is about 4 out of 5 Skin no abnormalities appreciated - Labs CBC & Chem 7: 10/29/16 13:35 10/29/16 13:35 Labs: Microbiology - Last 24 Hours (Table) 10/27/16 23:09 Blood Culture - Preliminary Blood No Growth after 72 hours 10/27/16 21:30 Blood Culture - Preliminary Blood No Growth after 72 hours Assessment and Plan Plan: #1 acute metabolic encephalopathy #2 chronic atrial fibrillation with rapid ventricular rate #3 suspected CVA ruled out #4 essential hypertension #5 degenerative disc disease of the left shoulder #6 lactic acidosis due to dehydration causing #1 #7 chronic lymphedema in the lower extremity left #8 asymptomatic bacteria #9 acute kidney injury due to dehydration #11 severe pulmonary hypertension due to valvular disease Plan Continue ongoing care CT angiogram was negative Patient can be discharged to an ECF when accepted Patient's heart rate is controlled no anticoagulation at this time due to fall risk DC to ECF tomorrow
--- NOTE | 2016-10-31 17:01 | P.PN ---
Subjective This patient is a 86 year old female seen yesterday for Neurology consultation for possible TIA vs. stroke. The patient presented with symptoms of confusion and new onset of atrial fibrillation. She has not been on anticoagulation for the atrial fibrillation. She was having word finding difficulties and symptoms suggesting possibility of stroke. She was sent for MRI of the brain today for further evaluation. MRI revealed no evidence of acute ischemia however there was absence of normal signal void within the carotid artery and carotid canals bilaterally rate her on the left versus the right. There was concern for possibility of occlusion due to thrombosis. CTA angiogram was recommended. Patient was sent for CTA angiogram of the head and neck. This study came back negative for any evidence of occlusive disease or aneurysm. We have reviewed all of these test results today with the patient. As noted her MRI failed to reveal any evidence of acute stroke. She remains in atrial fibrillation with a controlled ventricular response. She is currently on verapamil twice a day and metipranolol 3 times a day. We're waiting further recommendations from cardiology regarding further management of her atrial fibrillation. Apparently this appears to be likely chronic in nature. The patient is not a good candidate for long-term anticoagulation due to her low platelet count and high risk of falls. Patient is awaiting possible discharge at [facility] when bed is available. Neurologically she remains intact with no further changes since admission. Patient remains in atrial fibrillation. Heart rate is under adequate control. As noted her MRI of the brain failed to reveal any evidence of acute stroke. CTA angiogram was negative for thrombosis or aneurysm. We will continue to follow her overall condition closely during this admission. The patient is awaiting possible transfer to ECF early this next week. Her overall condition remained stable at this time. Case was discussed at length with the patient's son at bedside. Patient's heart rate is controlled and she is not requiring any anticoagulation at this time. Her overall prognosis at this time remains guarded. Objective - Vital Signs Vital signs: Vital Signs Temp 95.0 F L 10/31/16 12:00 Pulse 75 10/31/16 12:00 Resp 18 10/31/16 12:00 BP 156/93 10/31/16 12:00 Pulse Ox 96 10/31/16 12:00 Intake & Output 10/30/16 10/31/16 10/31/16 18:59 06:59 18:59 Intake Total 120 154.333 Output Total 800 Balance 120 154.333 -800 Weight 72.5 kg Intake: IV 0 50 .9 0 10 Diltiazem 125 mg In 40 Sodium Chloride 0.9% 100 ml @ 10 MG/HR 10 mls/hr IV .[id number] [facility] Rx#: [id number] Intake, IV Titration 104.333 Amount Diltiazem 125 mg In 104.333 Sodium Chloride 0.9% 100 ml @ 10 MG/HR 10 mls/hr IV .[id number] [facility] Rx#: [id number] Oral 120 Output: Urine 800 Other: Voiding Method Bedpan Bedpan Bedpan Incontinent Incontinent Incontinent # Voids 1 1 # Bowel Movements 0 - Exam Physical examination: PHYSICAL EXAMINATION: Patient is resting comfortably in bed. VITAL SIGNS: Blood pressure is [157/98]. Heart rate is [62]. Respiration is [18] . Temperature is [95.9]. HEENT: Head is atraumatic, neck is supple, there were no carotid bruits. CHEST: Lungs are clear to auscultation and percussion. CARDIAC: S1, S2 normal rate and rhythm. There is no murmur. ABDOMEN: Soft and nontender. Bowel sounds are present. EXTREMITIES: There is no pedal edema. Peripheral pulses are present. Neurological examination: Patient's neurological examination is unchanged from yesterday. - Labs CBC & Chem 7: 10/29/16 13:35 10/29/16 13:35 Labs: Microbiology - Last 24 Hours (Table) 10/27/16 23:09 Blood Culture - Preliminary Blood No Growth after 72 hours 10/27/16 21:30 Blood Culture - Preliminary Blood No Growth after 72 hours Assessment and Plan (1) Left acute arterial ischemic stroke, MCA (middle cerebral artery) Status: Acute Code(s): I63.512 - CEREB INFRC D/T UNSP OCCLS OR STENOS OF LEFT MID CEREB ART (2) Atrial fibrillation with RVR Status: Acute Code(s): I48.91 - UNSPECIFIED ATRIAL FIBRILLATION (3) Cellulitis Status: Acute Code(s): L03.90 - CELLULITIS, UNSPECIFIED (4) Degenerative arthritis of shoulder region Status: Acute Code(s): M19.019 - PRIMARY OSTEOARTHRITIS, UNSPECIFIED SHOULDER Plan: This patient is a 86-year-old right-handed white female who was admitted to hospital yesterday with episode of slurred speech and difficulty getting her words out. She was found at home and was brought into the emergency room. She was subsequently admitted to the hospital for further evaluation of possible stroke. She was found to have new onset of atrial fibrillation. She was seen by cardiology who feel that she is likely had chronic atrial fibrillation. She is currently being treated for this condition and is taking verapamil and metipranolol. She is not a good candidate for long-term anticoagulation due to low platelet count and high risk for falls. Patient was sent for MRI of the brain today which initially indicated no evidence of acute stroke. MRI did suggest possibility of carotid artery occlusion. She was sent for an emergency statin CTA angiogram of the head and neck this morning which came back negative for any occlusive disease or aneurysm. The patient is now resting comfortably. Patient seems to be back to baseline level of function. She has evidence of a diffuse metabolic encephalopathy which is improving. As noted MRI of the brain failed to reveal any evidence of acute stroke. She is being evaluated for possible discharge to ECF once bed is available. Patient is sitting up at bedside in her chair and seems to be quite appropriate. As noted she is waiting possible discharge to ECF tomorrow. Continue further recommendations per cardiology. She does have chronic atrial fibrillation and is not a candidate for anticoagulation at this time as per cardiology. We will continue close neurological follow-up of this patient during this admission. Her overall prognosis at this time remains very guarded.
[2016-11-01] MEDS: SODIUM CHLORIDE 0.9% 1,000 ML IV SCH (06:00)
[2016-11-01 07:11] LABS: Calcium 9.1 mg/dL (8.4-10.2); Potassium 4.9 mmol/L (3.5-5.1); Total Bilirubin 0.4 mg/dL (0.2-1.3); Total Protein 5.8 g/dL (6.3-8.2)
[2016-11-01] MEDS: IPRATROPIUM-ALBUTEROL 3 ML NEB INHALATION SCH ×2 (07:35→11:21)
[2016-11-01] MEDS: SODIUM BICARBONATE TAB 650 MG TAB PO SCH ×2 (08:13→12:14)
[2016-11-01] MEDS: METOPROLOL TARTRATE 50 MG TAB PO SCH (08:14)
[2016-11-01] MEDS: VERAPAMIL 80 MG TAB PO SCH (08:14)
[2016-11-01] MEDS: ASPIRIN 325 MG TAB PO SCH (08:14)
[2016-11-01] MEDS: HEPARIN SODIUM,PORCINE 5,000 UNIT/ML 1 ML VIAL SQ SCH (08:14)
--- NOTE | 2016-11-01 11:37 | PN ---
Mrs. Katz is an 86-year-old female, case of atrial fibrillation, who was admitted after she was found on the floor with suspicious of TIA. She was found to be in atrial fibrillation with a rapid ventricular response. The patient's heart rate is well controlled today. She does not seem to be in any acute distress. No sense of any other TIAs at this time. Patient is sleepy. PHYSICAL EXAMINATION: Her blood pressure is 150/98, pulse rate is about 70. NECK: Supple. HEART: S1/S2 heard. LUNGS: Appear to be clear. EXTREMITIES: No significant edema. LAB VALUES: No lab values available from today. Electrolytes have been stable. Creatinine is in the range of 1.19. FINAL IMPRESSION: 1. Suspected transient ischemic attack. 2. Atrial fibrillation. 3. Hypertension. 4. History of possible fall. PLAN: From cardiac standpoint will continue medical therapy. When cleared by neurology she could be discharged home, follow up as needed. DON
[2016-11-01 12:04] VITALS: BP 135/102; PULSE 91; RESP 17; TEMP 96.7
--- NOTE | 2016-11-01 13:54 | P.DS ---
Providers Date of admission: 10/27/16 23:01 Attending physician: Marlon Worthington Consults: 10/27/16 22:57 Consult Physician Urgent Consulting Provider: Chris Mallory Consult Reason/Comments: a fib w rvr Do you want consulting provider notified?: Yes 10/27/16 23:02 Consult Physician Urgent Consulting Provider: Gabriel Roque Consult Reason/Comments: cva Do you want consulting provider notified?: Yes 10/29/16 11:20 Consult Physician Stat Consulting Provider: Anshu Kerr Consult Reason/Comments: possible thrombosis seen in MRI Do you want consulting provider notified?: Yes Primary care physician: Stepan Chadwick [facility] Course: Afib with RVR and Altered mental status Ms. Katz is a 70-year-old female with a known history of acute fibrillation, Chronic, hypertension and are sure that this presented to emergency room as a transfer from [facility]. Apparently patient was found in the floor by her neighbor but the patient denied any fall. Patient was later taken to [facility]. Patient was found to be in atrial fibrillation with a rapid ventricular rate of 130. Patient was subsequently transferred to [facility] for evaluation by cardiology and neurology. Patient was very confused at the time and CT head was done which was negative as per the records. Otherwise the patient is a poor historian. Patient denies any complaints of fever chills recently. No cough or sputum production. No recent illnesses. Patient does have chronic lower except swelling/lymphedema for a long time. Patient was prescribed Lasix previously but she does not want to take it. Patient was initially started on Cardizem drip. Heart rate is better controlled now. Patient was also was dehydrated and her lactic acid was elevated which is normalized now. Cardiology has seen the patient and her vehicle was done showed normal ejection fraction of 55-60% and a severely dilated left atrium and enlarged right atrium with mild aortic wall sclerosis and moderate mitral regurgitation and moderate to severe tricuspid regurgitation and severe pulmonary hypertension. 0n 10/29/16 Pt. is awake and oriented at baseline. no overnight issues. pt. says she is tired of tests. no fever/chills. She did undergo a MRI this morning that showed possible acute thrombosis or acute occlusion of the carotid arteries however CTA of the head and neck were negative.Pt. was seen by neurology. 10/30/2016 Patient is awake denies having any additional complaints. Patient apparently at home was able to ambulate with a cane has some help with the other ADL support Today patient denies having any headaches blurry vision nausea vomiting or diarrhea 10/31/2016 Patient is awake denies having any additional complaints 10/31/16 doing well - Exam Physical exam Gen. appearance oriented 3 in no distress Neck is supple no JVD Lungs good air entry clear to auscultation no rhonchi or wheezing Heart S1-S2 heard regular rate and rhythm no murmurs appreciated Abdomen is soft nontender no organomegaly bowel sounds are intact Neurologically cranial nerves II-12 grossly intact no focal motor or sensory deficits noted Gross weakness in all 4 extremity strength is about 4 out of 5 Skin no abnormalities appreciated Assessment and Plan Plan: #1 acute metabolic encephalopathy #2 chronic atrial fibrillation with rapid ventricular rate, rate controlled no anticoagulation due to risk of falls' #3 suspected CVA ruled out #4 essential hypertension #5 degenerative disc disease of the left shoulder #6 lactic acidosis due to dehydration causing #1 #7 chronic lymphedema in the lower extremity left #8 asymptomatic bacteria #9 acute kidney injury due to dehydration #11 severe pulmonary hypertension due to valvular disease recommendations Raphael wrap on the left lower ext. Patient Condition at Discharge: Serious Plan - Discharge Summary New Discharge Prescriptions: New Metoprolol Tartrate [Lopressor] 50 mg PO TID #90 tab Verapamil HCl [Verapamil ER] 240 mg PO DAILY #30 cap24h.pel Continue Simvastatin [Zocor] 20 mg PO DAILY Lisinopril [Zestril] 20 mg PO DAILY Aspirin EC [Ecotrin] 325 mg PO DAILY Verapamil HCl [Verapamil ER] 120 mg PO DAILY Discontinued Metoprolol Tartrate [Lopressor] 100 mg PO BID Discharge Medication List Aspirin EC [Ecotrin] 325 mg PO DAILY 10/27/16 [History] Lisinopril [Zestril] 20 mg PO DAILY 10/27/16 [History] Simvastatin [Zocor] 20 mg PO DAILY 10/27/16 [History] Verapamil HCl [Verapamil ER] 120 mg PO DAILY 10/27/16 [History] Metoprolol Tartrate [Lopressor] 50 mg PO TID #90 tab 11/01/16 [Rx] Verapamil HCl [Verapamil ER] 240 mg PO DAILY #30 cap24h.pel 11/01/16 [Rx] Follow up Appointment(s)/Referral(s): Stepan Jordan DO [Primary Care Provider] - 1-2 days Discharge Disposition: TRANSFER TO SNF/ECF
== END 2016-11-01 15:08 | DRG 308 ==
LOC: EC 21:06 → 6SEL 23:01
PROVIDERS: ADMIT Internal Medicine; ATTEND Internal Medicine
DX: I48.2 Chronic atrial fibrillation (principal); G93.41 Metabolic encephalopathy; N17.9 Acute kidney failure, unspecified; E87.2 Acidosis; I50.9 Heart failure, unspecified; I27.2 Other secondary pulmonary hypertension; I11.0 Hypertensive heart disease with heart failure; L03.116 Cellulitis of left lower limb; R47.01 Aphasia; E86.0 Dehydration; M24.811 Other specific joint derangements of right shoulder, not elsewhere classified; M24.812 Other specific joint derangements of left shoulder, not elsewhere classified; E86.9 Volume depletion, unspecified; I34.0 Nonrheumatic mitral (valve) insufficiency; I36.1 Nonrheumatic tricuspid (valve) insufficiency; I70.0 Atherosclerosis of aorta; E78.5 Hyperlipidemia, unspecified; I89.0 Lymphedema, not elsewhere classified; R53.1 Weakness; R01.1 Cardiac murmur, unspecified; D72.829 Elevated white blood cell count, unspecified; R32 Unspecified urinary incontinence; I45.10 Unspecified right bundle-branch block; R29.705 NIHSS score 5; R82.90 Unspecified abnormal findings in urine; R47.81 Slurred speech; M19.012 Primary osteoarthritis, left shoulder; Z79.899 Other long term (current) drug therapy; Z82.49 Family history of ischemic heart disease and other diseases of the circulatory system; Z79.82 Long term (current) use of aspirin; Z88.5 Allergy status to narcotic agent; Z88.0 Allergy status to penicillin; Z86.19 Personal history of other infectious and parasitic diseases; Z91.81 History of falling; Z90.49 Acquired absence of other specified parts of digestive tract; Z90.710 Acquired absence of both cervix and uterus; Z87.81 Personal history of (healed) traumatic fracture
CPT/HCPCS: 36415; 70496; 70498; 70551; 71010; 73502; 80048; 80053; 80061; 81001; 83605; 83735; 85025; 85610; 85730; 87040; 87086; 93005; 93306; 93880; 93970; 94640; 95819; 96360; 96361; 96374; 99291

== ENCOUNTER 2016-12-15 14:38 | Inpatient (IN) | payer MEDICARE, OTHER ==
[2016-12-15] MEDS ORDERED: ONDANSETRON 4 MG/2 ML VIAL IVP STA (15:04)
[2016-12-15] MEDS ORDERED: PANTOPRAZOLE 40 MG/10 ML VIAL IVP STA (15:04)
[2016-12-15] MEDS ORDERED: SODIUM CHLORIDE 0.9% 1,000 ML IV STA ×2 (15:04)
[2016-12-15] MEDS ORDERED: SODIUM CHLORIDE 0.9% 1,000 ML IV ONE (15:04)
--- NOTE | 2016-12-15 15:04 | ED ---
General Adult HPI - General Chief complaint: GI Bleed Stated complaint: POSS GI BLEED Time Seen by Provider: 12/15/16 14:58 Source: patient, EMS, RN notes reviewed, old records reviewed Mode of arrival: EMS Limitations: no limitations - History of Present Illness Initial comments: This is an 86-year-old female, patient presented yesterday from [facility] for evaluation regarding elevated heart rate weakness and dark stools. Patient is no longer on blood thinners even though she does have atrial fibrillation. And she refuses never take blood thinners again. Patient states she feels better now but was feeling weak earlier. No dizziness or presyncopal events. No headache chest pain shortness of breath or abdominal pain. Patient has history of blood in her stool but bright red and states this is been black today. Otherwise patient has no complaints - Related Data Home Medications Medication Instructions Recorded Confirmed Aspirin EC [Ecotrin] 325 mg PO DAILY@0900 10/27/16 12/15/16 Verapamil HCl [Verapamil ER] 120 mg PO HS 10/27/16 12/15/16 Acetaminophen [Tylenol Arthritis] 650 mg PO Q8H 12/15/16 12/15/16 Atorvastatin [Lipitor] 10 mg PO HS@2100 12/15/16 12/15/16 Clotrimazole/Betamethasone Dip 1 applic TOPICAL BID 12/15/16 12/15/16 [Lotrisone Cream] Ondansetron [Zofran] 4 mg PO Q6H PRN 12/15/16 12/15/16 Sennosides-Docusate Sodium 2 tab PO HS 12/15/16 12/15/16 [Senokot-S] Triamcinolone 0.1% Cream [Kenalog] 1 applicatio TOPICAL Q12H 12/15/16 12/15/16 Previous Rx's Medication Instructions Recorded Metoprolol Tartrate [Lopressor] 50 mg PO TID #90 tab 11/01/16 Allergies Allergy/AdvReac Type Severity Reaction Status Date / Time Penicillins Allergy Dyspnea/JULIO Verified 12/15/16 15:11 H codeine AdvReac Nausea & Verified 12/15/16 15:11 Vomiting Review of Systems ROS Statement: Those systems with pertinent positive or pertinent negative responses have been documented in the HPI. ROS Other: All systems not noted in ROS Statement are negative. Past Medical History Past Medical History: Atrial Fibrillation, Heart Failure, Hypertension, Osteoarthritis (OA) Additional Past Medical History / Comment(s): Melva fever as a child History of Any Multi-Drug Resistant Organisms: None Reported Past Surgical History: Cholecystectomy, Hysterectomy, Tonsillectomy Additional Past Surgical History / Comment(s): hip surgery, knee surgery Past Anesthesia/Blood Transfusion Reactions: No Reported Reaction Past Psychological History: No Psychological Hx Reported Smoking Status: Never smoker Past Alcohol Use History: None Reported Past Drug Use History: None Reported - Past Family History Father Family Medical History: Myocardial Infarction ([place]) General Exam Limitations: no limitations General appearance: alert, in no apparent distress, anxious, in distress Head exam: Present: atraumatic, normocephalic, normal inspection Eye exam: Present: normal appearance, PERRL, EOMI. Absent: scleral icterus, conjunctival injection, periorbital swelling ENT exam: Present: normal exam, mucous membranes moist Neck exam: Present: normal inspection. Absent: tenderness, meningismus, lymphadenopathy Respiratory exam: Present: normal lung sounds bilaterally. Absent: respiratory distress, wheezes, rales, rhonchi, stridor Cardiovascular Exam: Present: tachycardia, irregular rhythm, normal heart sounds. Absent: systolic murmur, diastolic murmur, rubs, gallop, clicks GI/Abdominal exam: Present: soft, normal bowel sounds. Absent: distended, tenderness, guarding, rebound, rigid Extremities exam: Present: normal inspection, full ROM, normal capillary refill. Absent: tenderness, pedal edema, joint swelling, calf tenderness Back exam: Present: normal inspection Neurological exam: Present: alert, oriented X3, CN II-XII intact Psychiatric exam: Present: normal affect, normal mood Skin exam: Present: warm, dry, intact, normal color. Absent: rash Course Vital Signs 12/15/16 12/15/16 14:40 15:36 Temperature 96.8 F L Pulse Rate 81 Respiratory 18 Rate Blood Pressure 151/102 106/68 O2 Sat by Pulse 98 Oximetry - Reevaluation(s) Reevaluation #1: 12/15/16 15:43 Patient is without bloody bowel movement here in the emergency room, patient denies symptoms of syncope, near syncope, lightheadedness or dizziness Reevaluation #2: 12/15/16 15:43 Patient site is showing improvement Reevaluation #3: 12/15/16 15:[address] Owusu regarding patient EKG Findings - EKG Comments: EKG Findings:: EKG shows A. fib with RVR rate 139, QRS 122, QTC 517 Medical Decision Making - Medical Decision Making 86 female here for evaluation of blood in stool, dark tarry stools. History of bright red blood in stool no other prior GI bleed no blood thinners, patient also does have A. fib with RVR, currently in A. fib with RVR will be admitted for rate control as well as GI evaluations, trending of an - Lab Data Result diagrams: 12/15/16 14:47 12/15/16 14:47 Lab Results 12/15/16 12/15/16 12/15/16 Range/Units 14:47 14:47 14:47 WBC 13.6 H (3.8-10.6) k/uL RBC 4.42 (3.80-5.40) m/uL Hgb 14.4 (11.4-16.0) gm/dL Hct 45.1 (34.0-46.0) % MCV 102.0 H D (80.0-100.0) fL MCH 32.5 (25.0-35.0) pg MCHC 31.9 (31.0-37.0) g/dL RDW 17.8 H (11.5-15.5) % Plt Count 142 L (150-450) k/uL Neutrophils % 87 % Lymphocytes % 7 % Monocytes % 4 % Eosinophils % 0 % Basophils % 0 % Neutrophils # 11.8 H (1.3-7.7) k/uL Lymphocytes # 1.0 (1.0-4.8) k/uL Monocytes # 0.5 (0-1.0) k/uL Eosinophils # 0.1 (0-0.7) k/uL Basophils # 0.0 (0-0.2) k/uL Hypochromasia Slight Anisocytosis Slight Macrocytosis Moderate PT 12.2 H (9.0-12.0) sec INR 1.2 H (<1.2) APTT 26.1 (22.0-30.0) sec Sodium (137-145) mmol/L Potassium (3.5-5.1) mmol/L Chloride (98-107) mmol/L Carbon Dioxide (22-30) mmol/L Anion Gap mmol/L BUN (7-17) mg/dL Creatinine (0.52-1.04) mg/dL Est GFR (MDRD) Af Amer (>60 ml/min/1.73 sqM) Est GFR (MDRD) Non-Af (>60 ml/min/1.73 sqM) Glucose (74-99) mg/dL Calcium (8.4-10.2) mg/dL Magnesium (1.6-2.3) mg/dL Total Bilirubin (0.2-1.3) mg/dL AST (14-36) U/L ALT (9-52) U/L Alkaline Phosphatase (38-126) U/L Total Creatine Kinase 212 H (30-135) U/L Total Protein (6.3-8.2) g/dL Albumin (3.5-5.0) g/dL 12/15/16 Range/Units 14:47 WBC (3.8-10.6) k/uL RBC (3.80-5.40) m/uL Hgb (11.4-16.0) gm/dL Hct (34.0-46.0) % MCV (80.0-100.0) fL MCH (25.0-35.0) pg MCHC (31.0-37.0) g/dL RDW (11.5-15.5) % Plt Count (150-450) k/uL Neutrophils % % Lymphocytes % % Monocytes % % Eosinophils % % Basophils % % Neutrophils # (1.3-7.7) k/uL Lymphocytes # (1.0-4.8) k/uL Monocytes # (0-1.0) k/uL Eosinophils # (0-0.7) k/uL Basophils # (0-0.2) k/uL Hypochromasia Anisocytosis Macrocytosis PT (9.0-12.0) sec INR (<1.2) APTT (22.0-30.0) sec Sodium 138 (137-145) mmol/L Potassium 5.8 H (3.5-5.1) mmol/L Chloride 112 H (98-107) mmol/L Carbon Dioxide 15 L (22-30) mmol/L Anion Gap 11 mmol/L BUN 42 H (7-17) mg/dL Creatinine 1.37 H (0.52-1.04) mg/dL Est GFR (MDRD) Af Amer 44 (>60 ml/min/1.73 sqM) Est GFR (MDRD) Non-Af 36 (>60 ml/min/1.73 sqM) Glucose 118 H (74-99) mg/dL Calcium 8.2 L (8.4-10.2) mg/dL Magnesium 1.6 (1.6-2.3) mg/dL Total Bilirubin 0.7 (0.2-1.3) mg/dL AST 22 (14-36) U/L ALT 25 (9-52) U/L Alkaline Phosphatase 34 L (38-126) U/L Total Creatine Kinase (30-135) U/L Total Protein 5.2 L (6.3-8.2) g/dL Albumin 2.8 L (3.5-5.0) g/dL Disposition Clinical Impression: Atrial fibrillation with RVR, Gastrointestinal hemorrhage Disposition: ADMITTED IP TO THIS HOSP Condition: Fair
[2016-12-15 15:18] LABS: Anisocytosis Slight; Basophils % (A) 0 %; CH 31.6; CHCM 31.2; Eosinophils # (A) 0.1 k/uL (0-0.7); Eosinophils % (A) 0 %; HCT 45.1 % (34.0-46.0); HDW 2.52; HGB 14.4 gm/dL (11.4-16.0); Hypochromasia Slight; Luc % (Auto) 2; Lymphocytes % (A) 7 %; MCH 32.5 pg (25.0-35.0); MCHC 31.9 g/dL (31.0-37.0); Macrocytosis Moderate; Mean Platelet Volume 9.7; Monocytes # (A) 0.5 k/uL (0-1.0); Monocytes % (A) 4 %; Neutrophils # (A) 11.8 k/uL (1.3-7.7); Neutrophils % (A) 87 %; RBC 4.42 m/uL (3.80-5.40); RDW 17.8 % (11.5-15.5); WBC 13.6 k/uL (3.8-10.6); WBC (Perox) 13.68
[2016-12-15 15:26] LABS: Calcium 8.2 mg/dL (8.4-10.2); Magnesium 1.6 mg/dL (1.6-2.3); Potassium 5.8 mmol/L (3.5-5.1); Total Bilirubin 0.7 mg/dL (0.2-1.3); Total Protein 5.2 g/dL (6.3-8.2)
[2016-12-15 15:34] LABS: INR 1.2 (<1.2); Partial Thromboplastin Time 26.1 sec (22.0-30.0); Prothrombin Time 12.2 sec (9.0-12.0)
[2016-12-15] MEDS ORDERED: DILTIAZEM 5 MG/ML 5 ML VIAL IVP STA (15:38)
[2016-12-15] MEDS ORDERED: DILTIAZEM 125 MG in SODIUM CHLORIDE 0.9% 100 ML IV ONE (15:38)
[2016-12-15 16:05] LABS: Creatine Kinase MB 8.3 ng/mL (0.0-2.4)
[2016-12-15 16:06] LABS: Troponin I 0.078 ng/mL (0.000-0.034)
[2016-12-15] MEDS ORDERED: ONDANSETRON 4 MG TAB PO PRN (17:45)
--- NOTE | 2016-12-15 18:53 | P.HPIM ---
History of Present Illness H&P Date: 12/15/16 Chief Complaint: Melanocytic stool This is an 86-year-old pleasant lady patient patient of Dr. Jordan currently under the care of Dr. Barreto at [facility] on the [place] with underlying history of chronic atrial fibrillation chronic not on any anticoagulation and to intermittent GI bleed, also with hypertensive cardiovascular disease, CHF, who was transferred to emergency room secondary to weakness and melanocytic stools 2 days. Stools were noted to be black without any diarrhea , she was constipated no abdominal pain however she has chronic recurrent nausea , previous cholecystectomy secondary to gallbladder stones in the past, patient requires Zofran intermittently and patient has been be selecting certain folds secondary to recurrent nausea patient denies any cough no fever no chills patient has discomfort in the left leg, she also has a big bruise on the right leg from the knee down secondary to fall at home from 2 months ago,. Patient has cyanotic toes however patient denies any discomfort on this toes in the emergency room patient was noted to have a rapid ventricular rate with atrial fibrillation, also for evaluation off the dark stools, occult postoperative according to the ER doctor, and would be admitted for the atrial fibrillation and consultation were made with cardiology as well as GI. Further investigations to include her lower circulation secondary to the cyanotic toes that was noted and cold feet, and was started on Cardizem IV for the atrial fibrillation and cellulitis of the foot is also currently being treated during this admission with possible ischemic toes a consult with Dr. Kerr from vascular surgery Review of Systems Constitutional: Reports as per HPI, Reports anorexia, Reports lethargy, Reports poor appetite, Denies chills, Denies chronic headaches, Denies chronic pain, Denies daytime sleepiness, Denies fatigue, Denies fever, Denies malaise, Denies night sweats, Denies sweats, Denies weakness, Denies weight gain, Denies weight loss Ears, nose, mouth and throat: Reports as per HPI, Denies ant. neck pain, Denies bleeding gums, Denies dental pain, Denies dysphagia, Denies epistaxis, Denies headache, Denies hoarseness, Denies mouth pain, Denies nasal congestion, Denies nasal discharge, Denies neck fullness/pressure, Denies neck lump, Denies nose pain, Denies odynophagia, Denies post-nasal drip, Denies sinus pain, Denies sinus pressure, Denies swelling in mouth, Denies swelling in throat, Denies sore throat, Denies vertigo, Denies voice changes Cardiovascular: Reports as per HPI, Denies chest pain, Denies claudication, Denies decreased exercise tolerance, Denies dyspnea on exertion, Denies edema, Denies high blood pressure, Denies irregular heart beat, Denies leg edema, Denies lightheadedness, Denies orthopnea, Denies palpitations, Denies paroxysmal nocturnal dyspnea, Denies phlebitis, Denies rapid heart beat, Denies shortness of breath, Denies syncope Respiratory: Reports as per HPI, Denies congestion, Denies cough, Denies cough with sputum, Denies dyspnea, Denies excessive sputum, Denies hemoptysis, Denies home oxygen, Denies pain, Denies pain on inspiration, Denies pleurisy, Denies respiratory infections, Denies sleep apnea, Denies snoring, Denies wheezing Gastrointestinal: Reports as per HPI, Reports abdominal pain, Reports early satiety, Denies belching, Denies bloating, Denies BRBPR, Denies change in bowel habits, Denies coffee ground emesis, Denies constipation, Denies diarrhea, Denies dyspepsia, Denies excessive gas, Denies heartburn, Denies hematemesis, Denies hematochezia, Denies indigestion, Denies jaundice, Denies lactose intolerance, Denies loss of appetite, Denies melena, Denies nausea, Denies vomiting Genitourinary: Reports as per HPI, Reports urge incontinence, Denies abnormal vaginal bleeding, Denies decreased libido, Denies difficulty conceiving, Denies difficulty voiding, Denies dysmenorrhea, Denies dyspareunia, Denies dysuria, Denies flank pain, Denies genital sores, Denies hematuria, Denies hot flashes, Denies incomplete emptying, Denies kidney stones, Denies menorrhagia, Denies mixed incontinence, Denies nocturia, Denies pelvic pain, Denies post void dribbling, Denies , Denies prolapse symptoms, Denies stress incontinence , Denies urgency, Denies urinary frequency, Denies vaginal discharge, Denies vaginal dryness, Denies vaginal itching, Denies vaginal odor Menstruation: Reports as per HPI, Reports postmenopausal, Denies amenorrhea, Denies amenorrhea on BC, Denies currently menstrual, Denies cycle < 21 days, Denies cycle > 35 days, Denies cycle variable, Denies menses 1-7 days, Denies menses 8 or > days, Denies menses variable, Denies period heavy, Denies period light, Denies period normal, Denies period spotting, Denies post hysterectomy, Denies premenarcheal Musculoskeletal: Reports as per HPI, Reports gait dysfunction, Reports limitation of motion Integumentary: Reports as per HPI, Reports color changes, Reports unusual bruising, Denies acne, Denies boils, Denies brittle nails, Denies change in hair /nails, Denies darkening of skin, Denies depigmentation, Denies dryness, Denies foot/leg ulcers, Denies growths, Denies hirsutism, Denies lesions, Denies onychomycosis, Denies pruritus, Denies rash, Denies sores, Denies striae, Denies wounds Neurological: Reports as per HPI, Denies aphasia, Denies ataxia, Denies balance difficulties, Denies burning pain, Denies change in mentation, Denies change in smell/taste, Denies change in speech, Denies confusion, Denies convulsions, Denies double vision, Denies gait dysfunction, Denies head injury, Denies headaches, Denies hearing difficulties, Denies lack of coordination, Denies loss of vision, Denies memory loss, Denies migraines, Denies motor disturbance, Denies numbness, Denies paralysis, Denies paresthesias, Denies seizures, Denies sensory deficit, Denies spasticity, Denies syncope, Denies tic, Denies tingling , Denies transient paralysis, Denies tremors, Denies vertigo, Denies weakness, Denies visual changes Psychiatric: Reports as per HPI, Denies anhedonia, Denies anxiety, Denies anxiety attacks, Denies change in appetite, Denies change in libido, Denies change in sleep habits, Denies confusion, Denies depression, Denies difficulty concentrating, Denies disorientation, Denies hallucinations, Denies hopelessness , Denies hypersomnia, Denies insomnia, Denies irritability, Denies memory loss, Denies mood swings, Denies paranoia, Denies sadness/tearfulness, Denies sleep disturbances, Denies suicidal ideation Endocrine: Reports as per HPI, Denies cold intolerance, Denies deepening of the voice, Denies excessive sweating, Denies excessive thirst, Denies fatigue, Denies flushing, Denies heat intolerance, Denies high blood sugars, Denies increase in ring/shoe/hat size, Denies low blood sugars, Denies nocturia, Denies palpitations, Denies polydipsia, Denies polyphagia, Denies polyuria, Denies proptosis, Denies recent glucocorticoid use, Denies thyroid mass, Denies weight change Hematologic/Lymphatic: Reports as per HPI, Denies easy bleeding, Denies easy bruising, Denies lymphadenopathy, Denies lymphedema, Denies thrombophilia Allergic/Immunologic: Reports as per HPI, Denies allergic rhinitis, Denies anaphylaxis, Denies angioedema, Denies gluten intolerance, Denies persistent infections, Denies seasonal allergies, Denies urticaria, Denies wheezing Past Medical History Past Medical History: Atrial Fibrillation, Heart Failure, Hypertension, Osteoarthritis (OA) Additional Past Medical History / Comment(s): Melva fever as a child History of Any Multi-Drug Resistant Organisms: None Reported Past Surgical History: Cholecystectomy, Hysterectomy, Tonsillectomy Additional Past Surgical History / Comment(s): hip surgery, knee surgery Past Anesthesia/Blood Transfusion Reactions: No Reported Reaction Past Psychological History: No Psychological Hx Reported Smoking Status: Never smoker Past Alcohol Use History: None Reported Past Drug Use History: None Reported - Past Family History Father Family Medical History: Myocardial Infarction ([place]) (40's) Mother Family Medical History: AFIB Brother(s) History Unknown: Yes Family Medical History: No Reported History, Unable to Obtain Son(s) Family Medical History: Hypertension Medications and Allergies Home Medications Medication Instructions Recorded Confirmed Type Aspirin EC [Ecotrin] 325 mg PO DAILY@0900 10/27/16 12/15/16 History Verapamil HCl [Verapamil ER] 120 mg PO HS 10/27/16 12/15/16 History Metoprolol Tartrate [Lopressor] 50 mg PO TID #90 tab 11/01/16 12/15/16 Rx Acetaminophen [Tylenol Arthritis] 650 mg PO Q8H 12/15/16 12/15/16 History Atorvastatin [Lipitor] 10 mg PO HS@2100 12/15/16 12/15/16 History Clotrimazole/Betamethasone Dip 1 applic TOPICAL BID 12/15/16 12/15/16 History [Lotrisone Cream] Ondansetron [Zofran] 4 mg PO Q6H PRN 12/15/16 12/15/16 History Sennosides-Docusate Sodium 2 tab PO HS 12/15/16 12/15/16 History [Senokot-S] Triamcinolone 0.1% Cream [Kenalog] 1 applicatio TOPICAL Q12H 12/15/16 12/15/16 History Allergies Allergy/AdvReac Type Severity Reaction Status Date / Time Penicillins Allergy Dyspnea/JULIO Verified 12/15/16 15:11 H codeine AdvReac Nausea & Verified 12/15/16 15:11 Vomiting Physical Exam Vitals: Vital Signs Temp Pulse Resp BP Pulse Ox 12/15/16 15:58 96.9 F L 95 18 107/73 97 12/15/16 15:41 99/67 12/15/16 15:36 106/68 12/15/16 14:40 96.8 F L 81 18 151/102 98 Intake and Output 12/15/16 12/15/16 12/15/16 06:59 14:59 22:59 Other: Weight 90.718 kg Patient Weight 12/16/16 06:59 Weight 90.718 kg - Constitutional General appearance: cooperative, no acute distress - EENT Eyes: anicteric sclerae, PERRLA, dentition normal, normal appearance ENT: NA/AT, normal oropharynx - Neck Neck: normal ROM - Respiratory Respiratory: bilateral: CTA, negative: diminished, dullness, rales, rhonchi - Cardiovascular Rhythm: regular Heart sounds: normal: S1, S2 Abnormal Heart Sounds: no systolic murmur, no diastolic murmur, no rub, no S3 Gallop, no S4 Gallop, no click, no other - Gastrointestinal General gastrointestinal: normal bowel sounds, soft - Integumentary Integumentary: cellulitis (Left foot), cyanotic (Toes 1-3 left side), decreased turgor, normal, rash (Bruiswe right kneecap down to the tib-fib region right leg absent pulses bilaterally lower dorsalis pedis) - Neurologic Neurologic: CNII-XII intact - Musculoskeletal Musculoskeletal: no gait normal, no generalized weakness, no strength equal bilaterally, no right sided weakness, no left sided weakness - Psychiatric Psychiatric: A&O x's 3, appropriate affect, no intact judgment & insight Results CBC & Chem 7: 12/15/16 14:47 12/15/16 14:47 Labs: Abnormal Lab Results - Last 24 Hours (Table) 12/15/16 12/15/16 12/15/16 Range/Units 14:47 14:47 14:47 WBC 13.6 H (3.8-10.6) k/uL MCV 102.0 H D (80.0-100.0) fL RDW 17.8 H (11.5-15.5) % Plt Count 142 L (150-450) k/uL Neutrophils # 11.8 H (1.3-7.7) k/uL PT 12.2 H (9.0-12.0) sec INR 1.2 H (<1.2) Potassium (3.5-5.1) mmol/L Chloride (98-107) mmol/L Carbon Dioxide (22-30) mmol/L BUN (7-17) mg/dL Creatinine (0.52-1.04) mg/dL Glucose (74-99) mg/dL Plasma Lactic Acid Gurdeep (0.7-2.0) mmol/L Calcium (8.4-10.2) mg/dL Alkaline Phosphatase (38-126) U/L Total Creatine Kinase 212 H (30-135) U/L CK-MB (CK-2) 8.3 H* (0.0-2.4) ng/mL Troponin I 0.078 H* (0.000-0.034) ng/mL Total Protein (6.3-8.2) g/dL Albumin (3.5-5.0) g/dL 12/15/16 12/15/16 Range/Units 14:47 15:15 WBC (3.8-10.6) k/uL MCV (80.0-100.0) fL RDW (11.5-15.5) % Plt Count (150-450) k/uL Neutrophils # (1.3-7.7) k/uL PT (9.0-12.0) sec INR (<1.2) Potassium 5.8 H (3.5-5.1) mmol/L Chloride 112 H (98-107) mmol/L Carbon Dioxide 15 L (22-30) mmol/L BUN 42 H (7-17) mg/dL Creatinine 1.37 H (0.52-1.04) mg/dL Glucose 118 H (74-99) mg/dL Plasma Lactic Acid Gurdeep 4.7 H* (0.7-2.0) mmol/L Calcium 8.2 L (8.4-10.2) mg/dL Alkaline Phosphatase 34 L (38-126) U/L Total Creatine Kinase (30-135) U/L CK-MB (CK-2) (0.0-2.4) ng/mL Troponin I (0.000-0.034) ng/mL Total Protein 5.2 L (6.3-8.2) g/dL Albumin 2.8 L (3.5-5.0) g/dL Thrombosis Risk Factor Assmnt - DVT/VTE Prophylaxis DVT/VTE Prophylaxis: Mechanical Prophylaxis ordered, Contraindicated - See note Assessment and Plan Plan: 1. Melena suspect upper GI bleed with known history ofsignificant drop of hemoglobin noted from current admission 14.4 from last lab draw 13.9 and 2016, patient will be observed for ongoing GI losses, patient would be started on omeprazole 40 mg twice a day, and with this consultation by GI for possible upper endoscopy 2. CK D stage III, creatinine slightly higher than previous, acute renal insufficiency with CK D stage III, most likely secondary to blood products, patient would be monitored closely, avoid nephrotoxins in maintain IV hydration 3. Atrial fibrillation with rapid ventricular rate, patient was started on Cardizem IV, and patient cannot receive any oral anticoagulation or IV anticoagulation secondary to GI bleeding suspected thyroid function test will be obtained 4. Diastolic CHF, currently asymptomatic however its expected to decompensate secondary to the A. fib, monitor for symptoms, 5. Elevated troponin most likely related to perfusion mismatch, echocardiogram was performed last October, cardiology is following maintain verapamil for A. fib rate control at this time, patient is not a candidate on antiplatelet secondary to ongoing GI bleed 6. Hyperlipidemia on Lipitor which is resumed 7. Macrocytosis, abnormal red cell volume, vitamin B12 levels and RBC folate will be obtained 8. Lactic acidosis, patient should be monitored for sepsis, urinalysis will be obtained, 9. Severe pulmonary hypertension based on last echocardiogram right ventricle systolic pressure of 73, most likely secondary to valvular heart disease. Diuretics would be initiated once BP would stabilize 10. Severe tricuspid regurgitation and moderate mitral regurgitation and mild aortic wall sclerosis 11. Cyanotic toes left side 12 and 3 was on the first toe, with cellulitis on the left foot, bruising mainly on the right foot however as well as pedis pulses are diminished bilaterally. Absent, consult was made with Dr. Kerr. IV antibiotics for the cellulitis Levaquin 11. GI prophylaxis 13. Moderate protein calorie malnutrition with hypoalbuminemia, also with electrolyte abnormalities with hyperkalemia secondary to either the bruise sensitive bruising right leg plus blood loss DVT prophylaxis with LANDON hose, patient is not a candidate for chemical prophylaxis secondary to GI bleed
[2016-12-15] MEDS: ACETAMINOPHEN TAB 325 MG TAB PO SCH (19:05)
[2016-12-15] MEDS ORDERED: LEVOFLOXACIN 500MG-D5W PMX 500 MG in DEXTROSE/WATER 1 100ML.BAG IVPB SCH (20:00)
[2016-12-15] MEDS: CLOTRIMAZOLE/BETAMETH 1-0.05% CREAM 45 GM TUBE TOPICAL SCH (20:07)
[2016-12-15] MEDS: ATORVASTATIN 10 MG TAB PO SCH (20:07)
[2016-12-15] MEDS: METOPROLOL TARTRATE 50 MG TAB PO SCH (20:08)
[2016-12-15] MEDS: SENNOSIDES-DOCUSATE SODIUM 1 EACH TAB PO SCH (20:08)
[2016-12-16 00:11] LABS: Anisocytosis Slight; CH 32.7; CHCM 31.9; HDW 2.64; HGB 11.8 gm/dL (11.4-16.0); MCH 32.2 pg (25.0-35.0); MCHC 31.2 g/dL (31.0-37.0); MCV 103.4 fL (80.0-100.0); Macrocytosis Moderate; Mean Platelet Volume 10.2; RBC 3.67 m/uL (3.80-5.40); RDW 18.7 % (11.5-15.5); WBC 9.5 k/uL (3.8-10.6)
[2016-12-16] MEDS: ACETAMINOPHEN TAB 325 MG TAB PO SCH ×4 (02:40→20:55)
[2016-12-16 06:10] LABS: Anisocytosis Slight; Basophils % (A) 0 %; CH 32.7; CHCM 31.9; Eosinophils # (A) 0.1 k/uL (0-0.7); Eosinophils % (A) 1 %; HCT 37.1 % (34.0-46.0); HDW 2.64; HGB 11.2 gm/dL (11.4-16.0); Luc # (Auto) 0.23; Luc % (Auto) 2; Lymphocytes # (A) 1.2 k/uL (1.0-4.8); Lymphocytes % (A) 12 %; MCH 31.2 pg (25.0-35.0); MCHC 30.2 g/dL (31.0-37.0); MCV 103.4 fL (80.0-100.0); Macrocytosis Moderate; Monocytes # (A) 0.5 k/uL (0-1.0); Monocytes % (A) 5 %; Neutrophils # (A) 7.9 k/uL (1.3-7.7); Neutrophils % (A) 80 %; RBC 3.58 m/uL (3.80-5.40); RDW 18.7 % (11.5-15.5); WBC 9.9 k/uL (3.8-10.6); WBC (Perox) 9.95
[2016-12-16 06:27] LABS: Calcium 7.8 mg/dL (8.4-10.2); Potassium 5.3 mmol/L (3.5-5.1); Total Bilirubin 0.5 mg/dL (0.2-1.3); Total Protein 4.3 g/dL (6.3-8.2)
[2016-12-16 07:43] LABS: Glucose,Whole Blood 97 mg/dL (75-99)
[2016-12-16 08:13] LABS: Glucose,Whole Blood 114 mg/dL (75-99)
[2016-12-16] MEDS ORDERED: SODIUM CHLORIDE 0.9% 1,000 ML IV ONE (08:30)
[2016-12-16 08:57] LABS: ALT 25 U/L (9-52); AST 15 U/L (14-36); Alkaline Phosphatase <20 U/L (38-126); Anion Gap 5 mmol/L; Blood Urea Nitrogen 45 mg/dL (7-17); Calcium 6.8 mg/dL (8.4-10.2); Carbon Dioxide 14 mmol/L (22-30); Chloride 118 mmol/L (98-107); Glucose 130 mg/dL (74-99); Magnesium 1.4 mg/dL (1.6-2.3); Non-African American GFR(MDRD) 42 (>60 ml/min/1.73 sqM); Potassium 5.4 mmol/L (3.5-5.1); Sodium 137 mmol/L (137-145); Total Bilirubin 0.4 mg/dL (0.2-1.3); Total Protein 3.2 g/dL (6.3-8.2)
[2016-12-16] MEDS ORDERED: PANTOPRAZOLE 40 MG/10 ML VIAL IVP SCH (09:00)
[2016-12-16 10:08] LABS: Anisocytosis Slight; CH 31.1; CHCM 30.2; HCT 30.8 % (34.0-46.0); HDW 2.53; Hypochromasia Moderate; MCH 32.6 pg (25.0-35.0); MCHC 31.4 g/dL (31.0-37.0); Macrocytosis Moderate; Mean Platelet Volume 9.5; RBC 2.96 m/uL (3.80-5.40); RDW 18.1 % (11.5-15.5); WBC 15.1 k/uL (3.8-10.6)
[2016-12-16 10:16] LABS: HGB 9.7 gm/dL (11.4-16.0)
[2016-12-16] MEDS ORDERED: DEXTROSE 5% IN WATER 100 ML with AMIODARONE 150 MG IV ONE (10:20)
[2016-12-16] MEDS: METOPROLOL TARTRATE 50 MG TAB PO SCH ×3 (10:20→23:07)
[2016-12-16] MEDS: AMIODARONE 450 MG in DEXTROSE 5% IN WATER 250 ML IV SCH ×6 (10:21→23:59)
[2016-12-16] MEDS: CLOTRIMAZOLE/BETAMETH 1-0.05% CREAM 45 GM TUBE TOPICAL SCH ×2 (10:23→20:42)
[2016-12-16] MEDS ORDERED: NALOXONE 0.4 MG/ML 1 ML VIAL IV PRN (11:13)
[2016-12-16] MEDS ORDERED: NOREPINEPHRIN 4 MG-0.9% NS PMX 4 MG/250 ML ML IV SCH (11:15)
--- NOTE | 2016-12-16 11:49 | P.CRDCN ---
History of Present Illness Consult date: 12/16/16 Consult reason: atrial fibrillation History of present illness: 86-year-old lady with history of chronic atrial fibrillation hypertension and congestive heart failure probably secondary to diastolic dysfunction with mitral and tricuspid regurgitation and severe pulmonary hypertension is admitted to hospital with atrial fibrillation with rapid ventricular rate. She had a large bloody bowel movement and had a syncope as a result. She is was transferred to ICU and is currently in ICU. She denies chest pain. Does not have any shortness of breath. Remains in A. fib with somewhat of a poorly controlled ventricular rate. She is not on an anticoagulant because of history of GI bleed. A shunt is currently hypotensive and is on IV Levophed. She is receiving IV fluids. Once patient's blood pressure improves we can either treat her with beta blockers and intravenous amiodarone for his A. fib. I peripheral rate controlling the measures such as Cardizem and beta blockers then amiodarone given the fact that she is not on an anticoagulant. Review of Systems Constitutional: Denies chills. Denies fever. Eyes: Denies blurred vision. Denies pain. Ears, nose, mouth and throat: Denies headache. Denies sore throat. Hearing impairment Cardiovascular: Denies chest pain. Denies shortness of breath. Palpitations Respiratory: Denies cough. Gastrointestinal: Denies abdominal pain. Denies diarrhea. Denies nausea. Denies vomiting. Lower GI bleed Musculoskeletal: Denies myalgias. Integumentary: Denies pruritus. Denies rash. Neurological: Denies numbness. Denies weakness. Psychiatric: Denies anxiety. Denies depression. Endocrine: Denies fatigue. Denies weight change. Genitourinary: Denies burning, hematuria, frequency of urination. Hematological: No anemia or excess bleeding. Past Medical History Past Medical History: Atrial Fibrillation, Heart Failure, Hyperlipidemia, Hypertension, Osteoarthritis (OA) Additional Past Medical History / Comment(s): Melva fever as a child History of Any Multi-Drug Resistant Organisms: None Reported Past Surgical History: Cholecystectomy, Hysterectomy, Tonsillectomy Additional Past Surgical History / Comment(s): zully hip replacement,zully knee replacments Past Anesthesia/Blood Transfusion Reactions: No Reported Reaction Smoking Status: Never smoker - Past Family History Father Family Medical History: Myocardial Infarction ([place]) Mother Family Medical History: AFIB Brother(s) History Unknown: Yes Family Medical History: No Reported History, Unable to Obtain Son(s) Family Medical History: Hypertension Medications and Allergies Home Medications Medication Instructions Recorded Confirmed Type Aspirin EC [Ecotrin] 325 mg PO DAILY@0900 10/27/16 12/15/16 History Verapamil HCl [Verapamil ER] 120 mg PO HS 10/27/16 12/15/16 History Metoprolol Tartrate [Lopressor] 50 mg PO TID #90 tab 11/01/16 12/15/16 Rx Acetaminophen [Tylenol Arthritis] 650 mg PO Q8H 12/15/16 12/15/16 History Atorvastatin [Lipitor] 10 mg PO HS@2100 12/15/16 12/15/16 History Clotrimazole/Betamethasone Dip 1 applic TOPICAL BID 12/15/16 12/15/16 History [Lotrisone Cream] Ondansetron [Zofran] 4 mg PO Q6H PRN 12/15/16 12/15/16 History Sennosides-Docusate Sodium 2 tab PO HS 12/15/16 12/15/16 History [Senokot-S] Triamcinolone 0.1% Cream [Kenalog] 1 applicatio TOPICAL Q12H 12/15/16 12/15/16 History Allergies Allergy/AdvReac Type Severity Reaction Status Date / Time Penicillins Allergy Dyspnea/JULIO Verified 12/15/16 15:11 H codeine AdvReac Nausea & Verified 12/15/16 15:11 Vomiting Physical Exam Vitals: Vital Signs Temp Pulse Pulse Resp BP BP Pulse Ox 12/16/16 11:00 124 H 19 68/57 96 12/16/16 10:20 126 H 14 91 L 12/16/16 10:00 138 H 23 75/55 12/16/16 09:40 123 H 30 H 12/16/16 09:20 120 H 12 73/58 99 12/16/16 09:00 96.8 F L 122 H 18 98 12/16/16 08:40 126 H 18 73/46 94 L 12/16/16 08:27 119 H 17 66/56 99 12/16/16 07:47 97 12/16/16 03:18 98.6 F 65 18 109/64 91 L 12/16/16 00:00 98.0 F 75 18 114/69 95 12/15/16 20:00 98.8 F 67 20 109/68 96 12/15/16 16:30 96.8 F L 47 L 20 91/58 96 12/15/16 15:58 96.9 F L 95 18 107/73 97 12/15/16 15:41 99/67 12/15/16 15:36 106/68 12/15/16 14:40 96.8 F L 81 18 151/102 98 Intake and Output 12/15/16 12/16/16 12/16/16 22:59 06:59 14:59 Intake Total 700 1100 Output Total 200 30 Balance 500 1070 Intake: IV 700 1100 Sodium Chloride 0.9% 1, 700 1100 000 ml @ 100 mls/hr IV . Q10H ONE Rx#:[id number] Output: Urine 30 Stool 200 Other: Voiding Method Toilet Bedside Commode Bedside Commode # Voids 1 # Bowel Movements 1 1 Weight 81.6 kg General: The patient is awake and alert, in no distress, and does not appear acutely ill. Skin: Skin is warm and dry and no rashes or lesions are noted. Eye: Pupils are equal, round and reactive to light, extra-ocular movements are intact; there is normal conjunctiva bilaterally. Ears, nose, mouth and throat: There are moist mucous membranes and no oral lesions. Neck: The neck is supple, there is no tenderness or JVD. Cardiovascular: Irregular systolic murmur at the apex and at the lower sternal border Respiratory: Lungs are clear to auscultation, respirations are non-labored, breath sounds are equal. Gastrointestinal: Soft, non-distended, non-tender abdomen without masses or organomegaly noted. There is no rebound or guarding present. Bowel sounds are unremarkable. Back: There is no tenderness to palpation in the midline. There is no obvious deformity. Musculoskeletal: Normal ROM, no tenderness, There is no pedal edema. There is no calf tenderness or swelling. Extremities: No edema. Chronic stasis changes in pigmentation Vascular: Femoral pulse is normal. Posterior tibial pulses are normal .Dorsalis pedis is palpable. Neurological: CN II-XII intact. There are no obvious motor or sensory deficits. Speech is normal. Psychiatric: Cooperative, appropriate mood & affect, normal judgment. Results 12/16/16 09:31 12/16/16 08:02 Cardiac Enzymes 12/15/16 12/15/16 12/16/16 Range/Units 14:47 14:47 05:35 AST 22 17 (14-36) U/L CK-MB (CK-2) 8.3 H* (0.0-2.4) ng/mL Troponin I 0.078 H* (0.000-0.034) ng/mL 12/16/16 12/16/16 Range/Units 08:02 08:02 AST 15 (14-36) U/L CK-MB (CK-2) (0.0-2.4) ng/mL Troponin I 0.070 H* (0.000-0.034) ng/mL Coagulation 12/15/16 Range/Units 14:47 PT 12.2 H (9.0-12.0) sec APTT 26.1 (22.0-30.0) sec CBC 12/15/16 12/15/16 12/16/16 Range/Units 14:47 23:53 05:35 WBC 13.6 H 9.5 9.9 (3.8-10.6) k/uL RBC 4.42 3.67 L 3.58 L (3.80-5.40) m/uL Hgb 14.4 11.8 11.2 L (11.4-16.0) gm/dL Hct 45.1 38.0 37.1 (34.0-46.0) % Plt Count 142 L 116 L 117 L (150-450) k/uL 12/16/16 Range/Units 09:31 WBC 15.1 H (3.8-10.6) k/uL RBC 2.96 L (3.80-5.40) m/uL Hgb 9.7 L D (11.4-16.0) gm/dL Hct 30.8 L (34.0-46.0) % Plt Count 119 L (150-450) k/uL Comprehensive Metabolic Panel 12/15/16 12/16/16 12/16/16 Range/Units 14:47 05:35 08:02 Sodium 138 136 L 137 (137-145) mmol/L Potassium 5.8 H 5.3 H 5.4 H (3.5-5.1) mmol/L Chloride 112 H 114 H 118 H (98-107) mmol/L Carbon Dioxide 15 L 16 L 14 L (22-30) mmol/L BUN 42 H 47 H 45 H (7-17) mg/dL Creatinine 1.37 H 1.20 H 1.20 H (0.52-1.04) mg/dL Glucose 118 H 78 130 H (74-99) mg/dL Calcium 8.2 L 7.8 L 6.8 L (8.4-10.2) mg/dL AST 22 17 15 (14-36) U/L ALT 25 30 25 (9-52) U/L Alkaline Phosphatase 34 L 36 L <20 L (38-126) U/L Total Protein 5.2 L 4.3 L 3.2 L (6.3-8.2) g/dL Albumin 2.8 L 2.2 L 1.6 L (3.5-5.0) g/dL Current Medications Generic Name Dose Route Start Last Admin Trade Name Freq PRN Reason Stop Dose Admin Acetaminophen 650 mg 12/15/16 18:00 12/16/16 10:22 Tylenol Tab PO Not Given Q8H [facility] Atorvastatin Calcium 10 mg 12/15/16 21:00 12/15/16 20:07 Lipitor PO 10 mg HS@2100 TERRENCE Administration Betamethasone/Clotrimazole 1 applic 12/15/16 21:00 12/16/16 10:23 Lotrisone TOPICAL 1 applic BID TERRENCE Administration Amiodarone HCl 450 mg/ 259 mls @ 34.53 mls/hr 12/16/16 10:30 12/16/16 10:21 Dextrose/Water IV 12/17/16 10:31 1 mg/min .Q7H31M [facility] 34.53 mls/hr Protocol Administration 1 MG/MIN Norepinephrine Bitartrate 4 mg in 250 mls @ 0 mls/hr 12/16/16 11:15 12/16/16 11:29 Levophed-0.9% Nacl 4 Mg/250ml Pmx IV 1 mcg/min .Q0M [facility] 3.75 mls/hr Protocol Administration Titrate Metoprolol Tartrate 50 mg 12/15/16 22:00 12/16/16 10:20 Lopressor PO Not Given TID [facility] Naloxone HCl 0.2 mg 12/16/16 11:13 Narcan IV Q2M PRN Opioid Reversal Ondansetron HCl 4 mg 12/15/16 17:45 Zofran PO Q6H PRN Nausea Pantoprazole Sodium 40 mg 12/16/16 21:00 Protonix IVP BID TERRENCE Senna/Docusate Sodium 2 each 12/15/16 21:00 12/15/16 20:08 Senokot-S PO 2 each HS TERRENCE Administration Intake and Output 12/15/16 12/16/16 12/16/16 22:59 06:59 14:59 Intake Total 700 1100 Output Total 200 30 Balance 500 1070 Intake: IV 700 1100 Sodium Chloride 0.9% 1, 700 1100 000 ml @ 100 mls/hr IV . Q10H ONE Rx#:[id number] Output: Urine 30 Stool 200 Other: Voiding Method Toilet Bedside Commode Bedside Commode # Voids 1 # Bowel Movements 1 1 Weight 81.6 kg 12/16/16 09:31 12/16/16 08:02 EKG Interpretations (text) Atrial fibrillation withST-T wave changes Assessment and Plan Plan: Chronic atrial fibrillation with poorly controlled ventricular rate Lower GI bleed Mitral regurgitation Hypotension secondary to GI bleed Elevated troponin probably due to supply demand mismatch R renal insufficiency Prerenal azotemia Will control the patient's heart rate Levophed and IV fluids for hypotension and consider starting either intravenous beta blockers and Cardizem
--- NOTE | 2016-12-16 11:55 | P.CONS ---
History of Present Illness - Reason for Consult Consult date: 12/16/16 GI bleed Requesting physician: Alie Barreto - History of Present Illness 86-year-old female with a history of atrial fibrillation maintained on full strength aspirin presents with black colored bowel movements from ECF. Patient has dementia most of history obtained from nursing staff and medical records. According to the family she had a GI bleed several years ago but does not remember the details or if endoscopic exams were performed. Patient states she' s never had an EGD or colonoscopy but has had "ulcers" many years ago. A-team was called earlier this morning patient had a large liquid red bowel movement. ICU staff reports 2 more red liquid bowel movement occurred a few hours ago with a small clot. No hematemesis fever or chills. Blood pressures are low systolic 60s despite fluid challenge. IV pressors have been ordered. Presently patient is resting comfortably without abdominal pain. Admission hemoglobin 14.4. MCV 102. Platelet 142. Present hemoglobin is 9.7. Platelet 119. INR 1.2. BUN 42. Creatinine 1.3. Review of Systems taint from nursing staff Limited history from patient and medical records. Constitutional: Denies fever, chills, sweats, weight gain, or loss. HEENT: Negative for migraines, blurred vision or loss, earaches, drainage, tinnitus, oral mucosal lesions, dysphagia, or odynophagia. CARDIAC: diastolic CHF. Atrial fibrillation. hypertension. Hyperlipidemia. Pulmonary hypertension. Negative for chest pain, arrhythmias, or palpitation. RESPIRATORY: Negative for shortness of breath, hemoptysis, cough, or sputum production. GI: See HPI for pertinent findings. : Negative for hematuria, urgency, frequency, polyuria, or dysuria. GYNc: Denies possibility of . Negative vaginal discharge. MUSCULOSKELETAL: Negative for muscle aches, swelling, arthritis, and arthralgias. NEUROLOGIC: Negative for stroke or TIA. ENDOCRINE: Negative for thyroid problems. nephrology: chronic kidney disease SKIN: Negative for rash or itching. PSYCHIATRIC: Negative history for depression and anxiety All systems: negative (See HPI) Past Medical History Past Medical History: Atrial Fibrillation, Heart Failure, Hyperlipidemia, Hypertension, Osteoarthritis (OA) Additional Past Medical History / Comment(s): Melva fever as a child History of Any Multi-Drug Resistant Organisms: None Reported Past Surgical History: Cholecystectomy, Hysterectomy, Tonsillectomy Additional Past Surgical History / Comment(s): zully hip replacement,zully knee replacments Past Anesthesia/Blood Transfusion Reactions: No Reported Reaction Smoking Status: Never smoker - Past Family History Father Family Medical History: Myocardial Infarction ([place]) Mother Family Medical History: AFIB Brother(s) History Unknown: Yes Family Medical History: No Reported History, Unable to Obtain Son(s) Family Medical History: Hypertension Medications and Allergies Home Medications Medication Instructions Recorded Confirmed Type Aspirin EC [Ecotrin] 325 mg PO DAILY@0900 10/27/16 12/15/16 History Verapamil HCl [Verapamil ER] 120 mg PO HS 10/27/16 12/15/16 History Metoprolol Tartrate [Lopressor] 50 mg PO TID #90 tab 11/01/16 12/15/16 Rx Acetaminophen [Tylenol Arthritis] 650 mg PO Q8H 12/15/16 12/15/16 History Atorvastatin [Lipitor] 10 mg PO HS@2100 12/15/16 12/15/16 History Clotrimazole/Betamethasone Dip 1 applic TOPICAL BID 12/15/16 12/15/16 History [Lotrisone Cream] Ondansetron [Zofran] 4 mg PO Q6H PRN 12/15/16 12/15/16 History Sennosides-Docusate Sodium 2 tab PO HS 12/15/16 12/15/16 History [Senokot-S] Triamcinolone 0.1% Cream [Kenalog] 1 applicatio TOPICAL Q12H 12/15/16 12/15/16 History Allergies Allergy/AdvReac Type Severity Reaction Status Date / Time Penicillins Allergy Dyspnea/JULIO Verified 12/15/16 15:11 H codeine AdvReac Nausea & Verified 12/15/16 15:11 Vomiting Physical Exam Vitals: Vital Signs Temp Pulse Pulse Resp BP BP Pulse Ox 12/16/16 11:00 124 H 19 68/57 96 12/16/16 10:20 126 H 14 91 L 12/16/16 10:00 138 H 23 75/55 12/16/16 09:40 123 H 30 H 12/16/16 09:20 120 H 12 73/58 99 12/16/16 09:00 96.8 F L 122 H 18 98 12/16/16 08:40 126 H 18 73/46 94 L 12/16/16 08:27 119 H 17 66/56 99 12/16/16 07:47 97 12/16/16 03:18 98.6 F 65 18 109/64 91 L 12/16/16 00:00 98.0 F 75 18 114/69 95 12/15/16 20:00 98.8 F 67 20 109/68 96 12/15/16 16:30 96.8 F L 47 L 20 91/58 96 12/15/16 15:58 96.9 F L 95 18 107/73 97 12/15/16 15:41 99/67 12/15/16 15:36 106/68 12/15/16 14:40 96.8 F L 81 18 151/102 98 Intake and Output 12/15/16 12/16/16 12/16/16 22:59 06:59 14:59 Intake Total 700 1100 Output Total 200 30 Balance 500 1070 Intake: IV 700 1100 Sodium Chloride 0.9% 1, 700 1100 000 ml @ 100 mls/hr IV . Q10H ONE Rx#:[id number] Output: Urine 30 Stool 200 Other: Voiding Method Toilet Bedside Commode Bedside Commode # Voids 1 # Bowel Movements 1 1 Weight 81.6 kg General appearance: The patient is alert, oriented, in no acute distress. HET: Head is normocephalic and atraumatic. Pupils are equal and reactive. Oropharynx is clear without lesions. Neck: Supple without lymphadenopathy. Trachea midline. Heart: S1 S2. Regular rate and rhythm. Lungs: No crackles or wheezes are heard. Abdomen: Soft, nontender, nondistended with bowel sounds. No peritoneal signs. No palpable organomegaly or masses. Extremities: left foot erythema with cyanotic appearing toes. Ecchymosis to the left lower extremity. Neurological: No focal deficits. Strength and sensation are grossly intact. Results CBC & Chem 7: 12/17/16 05:30 12/17/16 05:30 Labs: Abnormal Lab Results - Last 24 Hours (Table) 12/15/16 12/15/16 12/15/16 Range/Units 14:47 14:47 14:47 WBC 13.6 H (3.8-10.6) k/uL RBC (3.80-5.40) m/uL Hgb (11.4-16.0) gm/dL Hct (34.0-46.0) % MCV 102.0 H D (80.0-100.0) fL MCHC (31.0-37.0) g/dL RDW 17.8 H (11.5-15.5) % Plt Count 142 L (150-450) k/uL Neutrophils # 11.8 H (1.3-7.7) k/uL PT 12.2 H (9.0-12.0) sec INR 1.2 H (<1.2) Sodium (137-145) mmol/L Potassium (3.5-5.1) mmol/L Chloride (98-107) mmol/L Carbon Dioxide (22-30) mmol/L BUN (7-17) mg/dL Creatinine (0.52-1.04) mg/dL Glucose (74-99) mg/dL POC Glucose (mg/dL) (75-99) mg/dL Plasma Lactic Acid Gurdeep (0.7-2.0) mmol/L Calcium (8.4-10.2) mg/dL Magnesium (1.6-2.3) mg/dL Alkaline Phosphatase (38-126) U/L Total Creatine Kinase 212 H (30-135) U/L CK-MB (CK-2) 8.3 H* (0.0-2.4) ng/mL Troponin I 0.078 H* (0.000-0.034) ng/mL Total Protein (6.3-8.2) g/dL Albumin (3.5-5.0) g/dL 12/15/16 12/15/16 12/15/16 Range/Units 14:47 15:15 19:21 WBC (3.8-10.6) k/uL RBC (3.80-5.40) m/uL Hgb (11.4-16.0) gm/dL Hct (34.0-46.0) % MCV (80.0-100.0) fL MCHC (31.0-37.0) g/dL RDW (11.5-15.5) % Plt Count (150-450) k/uL Neutrophils # (1.3-7.7) k/uL PT (9.0-12.0) sec INR (<1.2) Sodium (137-145) mmol/L Potassium 5.8 H (3.5-5.1) mmol/L Chloride 112 H (98-107) mmol/L Carbon Dioxide 15 L (22-30) mmol/L BUN 42 H (7-17) mg/dL Creatinine 1.37 H (0.52-1.04) mg/dL Glucose 118 H (74-99) mg/dL POC Glucose (mg/dL) (75-99) mg/dL Plasma Lactic Acid Gurdeep 4.7 H* 2.6 H* (0.7-2.0) mmol/L Calcium 8.2 L (8.4-10.2) mg/dL Magnesium (1.6-2.3) mg/dL Alkaline Phosphatase 34 L (38-126) U/L Total Creatine Kinase (30-135) U/L CK-MB (CK-2) (0.0-2.4) ng/mL Troponin I (0.000-0.034) ng/mL Total Protein 5.2 L (6.3-8.2) g/dL Albumin 2.8 L (3.5-5.0) g/dL 12/15/16 12/16/16 12/16/16 Range/Units 23:53 05:35 05:35 WBC (3.8-10.6) k/uL RBC 3.67 L 3.58 L (3.80-5.40) m/uL Hgb 11.2 L (11.4-16.0) gm/dL Hct (34.0-46.0) % MCV 103.4 H 103.4 H (80.0-100.0) fL MCHC 30.2 L (31.0-37.0) g/dL RDW 18.7 H 18.7 H (11.5-15.5) % Plt Count 116 L 117 L (150-450) k/uL Neutrophils # 7.9 H (1.3-7.7) k/uL PT (9.0-12.0) sec INR (<1.2) Sodium 136 L (137-145) mmol/L Potassium 5.3 H (3.5-5.1) mmol/L Chloride 114 H (98-107) mmol/L Carbon Dioxide 16 L (22-30) mmol/L BUN 47 H (7-17) mg/dL Creatinine 1.20 H (0.52-1.04) mg/dL Glucose (74-99) mg/dL POC Glucose (mg/dL) (75-99) mg/dL Plasma Lactic Acid Gurdeep (0.7-2.0) mmol/L Calcium 7.8 L (8.4-10.2) mg/dL Magnesium (1.6-2.3) mg/dL Alkaline Phosphatase 36 L (38-126) U/L Total Creatine Kinase (30-135) U/L CK-MB (CK-2) (0.0-2.4) ng/mL Troponin I (0.000-0.034) ng/mL Total Protein 4.3 L (6.3-8.2) g/dL Albumin 2.2 L (3.5-5.0) g/dL 12/16/16 12/16/16 12/16/16 Range/Units 05:35 08:02 08:02 WBC (3.8-10.6) k/uL RBC (3.80-5.40) m/uL Hgb (11.4-16.0) gm/dL Hct (34.0-46.0) % MCV (80.0-100.0) fL MCHC (31.0-37.0) g/dL RDW (11.5-15.5) % Plt Count (150-450) k/uL Neutrophils # (1.3-7.7) k/uL PT (9.0-12.0) sec INR (<1.2) Sodium (137-145) mmol/L Potassium 5.4 H (3.5-5.1) mmol/L Chloride 118 H (98-107) mmol/L Carbon Dioxide 14 L (22-30) mmol/L BUN 45 H (7-17) mg/dL Creatinine 1.20 H (0.52-1.04) mg/dL Glucose 130 H (74-99) mg/dL POC Glucose (mg/dL) (75-99) mg/dL Plasma Lactic Acid Gurdeep 2.4 H* (0.7-2.0) mmol/L Calcium 6.8 L (8.4-10.2) mg/dL Magnesium 1.4 L (1.6-2.3) mg/dL Alkaline Phosphatase <20 L (38-126) U/L Total Creatine Kinase (30-135) U/L CK-MB (CK-2) (0.0-2.4) ng/mL Troponin I 0.070 H* (0.000-0.034) ng/mL Total Protein 3.2 L (6.3-8.2) g/dL Albumin 1.6 L (3.5-5.0) g/dL 12/16/16 12/16/16 12/16/16 Range/Units 08:12 09:31 09:35 WBC 15.1 H (3.8-10.6) k/uL RBC 2.96 L (3.80-5.40) m/uL Hgb 9.7 L D (11.4-16.0) gm/dL Hct 30.8 L (34.0-46.0) % MCV 104.0 H (80.0-100.0) fL MCHC (31.0-37.0) g/dL RDW 18.1 H (11.5-15.5) % Plt Count 119 L (150-450) k/uL Neutrophils # (1.3-7.7) k/uL PT (9.0-12.0) sec INR (<1.2) Sodium (137-145) mmol/L Potassium (3.5-5.1) mmol/L Chloride (98-107) mmol/L Carbon Dioxide (22-30) mmol/L BUN (7-17) mg/dL Creatinine (0.52-1.04) mg/dL Glucose (74-99) mg/dL POC Glucose (mg/dL) 114 H (75-99) mg/dL Plasma Lactic Acid Gurdeep 3.7 H* (0.7-2.0) mmol/L Calcium (8.4-10.2) mg/dL Magnesium (1.6-2.3) mg/dL Alkaline Phosphatase (38-126) U/L Total Creatine Kinase (30-135) U/L CK-MB (CK-2) (0.0-2.4) ng/mL Troponin I (0.000-0.034) ng/mL Total Protein (6.3-8.2) g/dL Albumin (3.5-5.0) g/dL Assessment and Plan (1) GI bleed Narrative/Plan: Symptomatic with hypotension suspect upper GI bleed possible bleeding peptic ulcer disease lower GI pathology cannot be entirely excluded. Status: Acute (2) Acute blood loss anemia Status: Acute (3) Atrial fibrillation Status: Chronic Plan: 1. Protonix 40 mg IV twice daily. 2. CBC every 6 hours. 3. NPO. 4. EGD once blood pressure is stabilized. Will follow closely. The central control room operator has discussed the risks, benefits and alternative therapies for the above-mentioned procedure and for both sedation/analgesia as well as necessary blood product administration, if indicated, as they pertain to this patient. The patient has indicated understanding and acceptance of the risks and procedures discussed. Thank you for this kind referral and the opportunity to participate in the care of your patient. This consultation was discussed with Dr. Mallory. The impression and plan of care have been directed as dictated.
--- NOTE | 2016-12-16 12:26 | P.CNPUL ---
History of Present Illness Consult date: 12/16/16 Requesting physician: Lela Owusu Reason for consult: other (GI bleeding, hypotension, ICU management.) Chief complaint: Dark stools and weakness History of present illness: This is an 86-year-old female with history of chronic atrial fibrillation, maintained on the on aspirin, presented from [facility] with black colored stools. Patient is also known to have history of dementia, remote history of GI bleeding several years ago, does not recall having EGD or colonoscopy, patient presented to the ER with large liquid red bowel movements. Patient was admitted to [facility], apparently overnight the patient's condition deteriorated , she developed more bloody stools, and blood clots were noted, patient became hypotensive, transferred to the ICU received fluid boluses, follow-up hemoglobin showed a mild drop but not enough to require blood transfusion. Patient was also noted in A. fib and RVR, blood pressure is relatively low in spite of fluid boluses, hence levo fed was ordered. Patient was already seen by cardiology and gastroenterology, her coagulation profile is relatively unremarkable. Platelets are 119, INR is 1.2. Considering that the patient was transferred to the ICU, I was asked to see her on consultation. After evaluating the patient, I recommended that we monitor serial hemoglobin and hematocrit, started the patient on amiodarone drip for A. fib/RVR, and I recommended norepinephrine to be started for low blood pressure. Patient received a total of 3 L of fluid boluses over the last few hours since she was transferred to the ICU. Review of Systems ROS unobtainable: due to mental status Past Medical History Past Medical History: Atrial Fibrillation, Heart Failure, Hyperlipidemia, Hypertension, Osteoarthritis (OA) Additional Past Medical History / Comment(s): Melva fever as a child History of Any Multi-Drug Resistant Organisms: None Reported Past Surgical History: Cholecystectomy, Hysterectomy, Tonsillectomy Additional Past Surgical History / Comment(s): zully hip replacement,zully knee replacments Past Anesthesia/Blood Transfusion Reactions: No Reported Reaction Smoking Status: Never smoker - Past Family History Father Family Medical History: Myocardial Infarction ([place]) Mother Family Medical History: AFIB Brother(s) History Unknown: Yes Family Medical History: No Reported History, Unable to Obtain Son(s) Family Medical History: Hypertension Medications and Allergies Home Medications Medication Instructions Recorded Confirmed Type Aspirin EC [Ecotrin] 325 mg PO DAILY@0900 10/27/16 12/15/16 History Verapamil HCl [Verapamil ER] 120 mg PO HS 10/27/16 12/15/16 History Metoprolol Tartrate [Lopressor] 50 mg PO TID #90 tab 11/01/16 12/15/16 Rx Acetaminophen [Tylenol Arthritis] 650 mg PO Q8H 12/15/16 12/15/16 History Atorvastatin [Lipitor] 10 mg PO HS@2100 12/15/16 12/15/16 History Clotrimazole/Betamethasone Dip 1 applic TOPICAL BID 12/15/16 12/15/16 History [Lotrisone Cream] Ondansetron [Zofran] 4 mg PO Q6H PRN 12/15/16 12/15/16 History Sennosides-Docusate Sodium 2 tab PO HS 12/15/16 12/15/16 History [Senokot-S] Triamcinolone 0.1% Cream [Kenalog] 1 applicatio TOPICAL Q12H 12/15/16 12/15/16 History Allergies Allergy/AdvReac Type Severity Reaction Status Date / Time Penicillins Allergy Dyspnea/JULIO Verified 12/15/16 15:11 H codeine AdvReac Nausea & Verified 12/15/16 15:11 Vomiting Physical Exam Vitals: Vital Signs Temp Pulse Pulse Resp BP BP Pulse Ox 12/16/16 11:00 124 H 19 68/57 96 12/16/16 10:20 126 H 14 91 L 12/16/16 10:00 138 H 23 75/55 12/16/16 09:40 123 H 30 H 12/16/16 09:20 120 H 12 73/58 99 12/16/16 09:00 96.8 F L 122 H 18 98 12/16/16 08:40 126 H 18 73/46 94 L 12/16/16 08:27 119 H 17 66/56 99 12/16/16 07:47 97 12/16/16 03:18 98.6 F 65 18 109/64 91 L 12/16/16 00:00 98.0 F 75 18 114/69 95 12/15/16 20:00 98.8 F 67 20 109/68 96 12/15/16 16:30 96.8 F L 47 L 20 91/58 96 12/15/16 15:58 96.9 F L 95 18 107/73 97 12/15/16 15:41 99/67 12/15/16 15:36 106/68 12/15/16 14:40 96.8 F L 81 18 151/102 98 Intake and Output 12/15/16 12/16/16 12/16/16 22:59 06:59 14:59 Intake Total 700 1100 Output Total 200 30 Balance 500 1070 Intake: IV 700 1100 Sodium Chloride 0.9% 1, 700 1100 000 ml @ 100 mls/hr IV . Q10H ONE Rx#:[id number] Output: Urine 30 Stool 200 Other: Voiding Method Toilet Bedside Commode Bedside Commode # Voids 1 # Bowel Movements 1 1 Weight 81.6 kg General appearance: Physical examination revealed an 86-year-old female in no distress. Slightly confused. HET: Head is normocephalic and atraumatic. Dry mucous membranes were noted, throat was clear. Neck: Supple without lymphadenopathy. No thyromegaly was appreciated. Heart: S1 S2. Irregular irregular rhythm, no S3 gallop. Lungs: Bilaterally, no crackles or rhonchi or wheezes. Abdomen: Soft, nontender, nondistended with bowel sounds. No peritoneal signs. No palpable organomegaly or masses. Extremities: left foot erythema with cyanotic appearing toes. Ecchymosis to the left lower extremity. Neurological: No focal deficits. Results - Laboratory Findings CBC and BMP: 12/16/16 09:31 12/16/16 08:02 PT/INR, D-dimer PT 12.2 sec (9.0-12.0) H 12/15/16 14:47 INR 1.2 (<1.2) H 12/15/16 14:47 Abnormal lab findings: Abnormal Labs 12/15/16 12/15/16 12/15/16 14:47 14:47 14:47 WBC 13.6 H RBC Hgb Hct MCV 102.0 H D MCHC RDW 17.8 H Plt Count 142 L Neutrophils # 11.8 H PT 12.2 H INR 1.2 H Sodium Potassium Chloride Carbon Dioxide BUN Creatinine Glucose POC Glucose (mg/dL) Plasma Lactic Acid Gurdeep Calcium Magnesium Alkaline Phosphatase Total Creatine Kinase 212 H CK-MB (CK-2) 8.3 H* Troponin I 0.078 H* Total Protein Albumin 12/15/16 12/15/16 12/15/16 14:47 15:15 19:21 WBC RBC Hgb Hct MCV MCHC RDW Plt Count Neutrophils # PT INR Sodium Potassium 5.8 H Chloride 112 H Carbon Dioxide 15 L BUN 42 H Creatinine 1.37 H Glucose 118 H POC Glucose (mg/dL) Plasma Lactic Acid Gurdeep 4.7 H* 2.6 H* Calcium 8.2 L Magnesium Alkaline Phosphatase 34 L Total Creatine Kinase CK-MB (CK-2) Troponin I Total Protein 5.2 L Albumin 2.8 L 12/15/16 12/16/16 12/16/16 23:53 05:35 05:35 WBC RBC 3.67 L 3.58 L Hgb 11.2 L Hct MCV 103.4 H 103.4 H MCHC 30.2 L RDW 18.7 H 18.7 H Plt Count 116 L 117 L Neutrophils # 7.9 H PT INR Sodium 136 L Potassium 5.3 H Chloride 114 H Carbon Dioxide 16 L BUN 47 H Creatinine 1.20 H Glucose POC Glucose (mg/dL) Plasma Lactic Acid Gurdeep Calcium 7.8 L Magnesium Alkaline Phosphatase 36 L Total Creatine Kinase CK-MB (CK-2) Troponin I Total Protein 4.3 L Albumin 2.2 L 12/16/16 12/16/16 12/16/16 05:35 08:02 08:02 WBC RBC Hgb Hct MCV MCHC RDW Plt Count Neutrophils # PT INR Sodium Potassium 5.4 H Chloride 118 H Carbon Dioxide 14 L BUN 45 H Creatinine 1.20 H Glucose 130 H POC Glucose (mg/dL) Plasma Lactic Acid Gurdeep 2.4 H* Calcium 6.8 L Magnesium 1.4 L Alkaline Phosphatase <20 L Total Creatine Kinase CK-MB (CK-2) Troponin I 0.070 H* Total Protein 3.2 L Albumin 1.6 L 12/16/16 12/16/16 12/16/16 08:12 09:31 09:35 WBC 15.1 H RBC 2.96 L Hgb 9.7 L D Hct 30.8 L MCV 104.0 H MCHC RDW 18.1 H Plt Count 119 L Neutrophils # PT INR Sodium Potassium Chloride Carbon Dioxide BUN Creatinine Glucose POC Glucose (mg/dL) 114 H Plasma Lactic Acid Gurdeep 3.7 H* Calcium Magnesium Alkaline Phosphatase Total Creatine Kinase CK-MB (CK-2) Troponin I Total Protein Albumin Assessment and Plan Plan: Impression: 1 acute GI bleeding, exact source is not clear, patient is to be evaluated by gastroenterology for possible EGD and colonoscopy. In the meantime, patient was placed on Protonix, and CBC was ordered every 6 hours. 2 acute anemia secondary to blood loss 3 chronic atrial fibrillation, however patient has atrial fibrillation with RVR and that will be addressed, patient was placed on amiodarone drip. 4 history of congestive heart failure, hypertension, osteoarthritis. 5 acute prerenal azotemia, patient is a set up for possible ATN considering her low blood pressure prior to transfer to ICU. Recommendation: Patient will remain in the ICU, Protonix was started, serial CBCs were ordered, placed on amiodarone drip, placed on norepinephrine for low blood pressure. And for hemodynamic support. Prognosis is definitely guarded, discussed her condition with family at bedside. Will follow while she is in the ICU. Time with Patient: Greater than 30
[2016-12-16 13:44] LABS: INR 1.3 (<1.2); Partial Thromboplastin Time 27.1 sec (22.0-30.0); Prothrombin Time 12.7 sec (9.0-12.0)
[2016-12-16 14:19] LABS: Anisocytosis Slight; Basophils % (A) 0 %; CH 31.2; CHCM 29.7; Eosinophils % (A) 0 %; HCT 31.3 % (34.0-46.0); HDW 2.59; HGB 9.6 gm/dL (11.4-16.0); Hypochromasia Marked; Luc # (Auto) 0.21; Luc % (Auto) 2; Lymphocytes # (A) 1.1 k/uL (1.0-4.8); Lymphocytes % (A) 9 %; MCH 32.5 pg (25.0-35.0); MCHC 30.7 g/dL (31.0-37.0); MCV 105.8 fL (80.0-100.0); Macrocytosis Marked; Mean Platelet Volume 9.4; Monocytes # (A) 0.4 k/uL (0-1.0); Monocytes % (A) 3 %; Neutrophils % (A) 87 %; RBC 2.96 m/uL (3.80-5.40); RDW 18.3 % (11.5-15.5); WBC 12.7 k/uL (3.8-10.6); WBC (Perox) 12.76
--- NOTE | 2016-12-16 14:27 | P.PN ---
Subjective This is an 86-year-old pleasant lady patient patient of Dr. Jordan currently under the care of Dr. Barreto at [facility] on the [place] with underlying history of chronic atrial fibrillation chronic not on any anticoagulation and to intermittent GI bleed, also with hypertensive cardiovascular disease, CHF, who was transferred to emergency room secondary to weakness and melanocytic stools 2 days. Stools were noted to be black without any diarrhea , she was constipated no abdominal pain however she has chronic recurrent nausea , previous cholecystectomy secondary to gallbladder stones in the past, patient requires Zofran intermittently and patient has been be selecting certain folds secondary to recurrent nausea patient denies any cough no fever no chills patient has discomfort in the left leg, she also has a big bruise on the right leg from the knee down secondary to fall at home from 2 months ago,. Patient has cyanotic toes however patient denies any discomfort on this toes in the emergency room patient was noted to have a rapid ventricular rate with atrial fibrillation, also for evaluation off the dark stools, occult postoperative according to the ER doctor, and would be admitted for the atrial fibrillation and consultation were made with cardiology as well as GI. Further investigations to include her lower circulation secondary to the cyanotic toes that was noted and cold feet, and was started on Cardizem IV for the atrial fibrillation and cellulitis of the foot is also currently being treated during this admission with possible ischemic toes a consult with Dr. Kerr from vascular surgery 12/16: Patient is started having burgundy stools and passed out in the bathroom and transferred to the intensive care unit. Repeat hemoglobin was 9.7. Consult added per Dr. Leigh for intensive care management. Patient was on a Cardizem drip now with plan to start amiodarone watch blood pressure is improved. She is on vasopressors. Patient has been seen by GI with recommendations for Protonix twice daily and EGD when stable. Cardiology is following the patient for chronic atrial fibrillation. Dr. Kerr is on consult for ischemic left toes. Objective - Vital Signs Vital signs: Vital Signs Temp 98.6 F 12/16/16 03:18 Pulse 119 H 12/16/16 08:27 Resp 17 12/16/16 08:27 BP 66/56 12/16/16 08:27 Pulse Ox 99 12/16/16 08:27 Intake & Output 12/15/16 12/16/16 12/16/16 18:59 06:59 18:59 Intake Total 700 Output Total 200 Balance 500 Weight 90.718 kg 81.6 kg Intake: IV 700 Sodium Chloride 0.9% 1, 700 000 ml @ 100 mls/hr IV . Q10H ONE Rx#:[id number] Output: Stool 200 Other: Voiding Method Toilet Bedside Commode Bedside Commode # Voids 1 # Bowel Movements 1 - Exam General appearance: cooperative, no acute distress - EENT Eyes: anicteric sclerae, PERRLA, dentition normal, normal appearance ENT: NA/AT, normal oropharynx - Neck Neck: normal ROM - Respiratory Respiratory: bilateral: CTA, negative: diminished, dullness, rales, rhonchi - Cardiovascular Rhythm: regular Heart sounds: normal: S1, S2 Abnormal Heart Sounds: no systolic murmur, no diastolic murmur, no rub, no S3 Gallop, no S4 Gallop, no click, no other - Gastrointestinal General gastrointestinal: normal bowel sounds, soft - Integumentary Integumentary: cellulitis (Left foot), cyanotic (Toes 1-3 left side), decreased turgor, normal, rash (Bruiswe right kneecap down to the tib-fib region right leg absent pulses bilaterally lower dorsalis pedis) - Neurologic Neurologic: CNII-XII intact - Musculoskeletal Musculoskeletal: no gait normal, no generalized weakness, no strength equal bilaterally, no right sided weakness, no left sided weakness - Psychiatric Psychiatric: A&O x's 3, appropriate affect, no intact judgment & insight - Labs CBC & Chem 7: 12/16/16 09:31 12/16/16 08:02 Labs: Abnormal Lab Results - Last 24 Hours (Table) 12/15/16 12/15/16 12/15/16 Range/Units 14:47 14:47 14:47 WBC 13.6 H (3.8-10.6) k/uL RBC (3.80-5.40) m/uL Hgb (11.4-16.0) gm/dL MCV 102.0 H D (80.0-100.0) fL MCHC (31.0-37.0) g/dL RDW 17.8 H (11.5-15.5) % Plt Count 142 L (150-450) k/uL Neutrophils # 11.8 H (1.3-7.7) k/uL PT 12.2 H (9.0-12.0) sec INR 1.2 H (<1.2) Sodium (137-145) mmol/L Potassium (3.5-5.1) mmol/L Chloride (98-107) mmol/L Carbon Dioxide (22-30) mmol/L BUN (7-17) mg/dL Creatinine (0.52-1.04) mg/dL Glucose (74-99) mg/dL POC Glucose (mg/dL) (75-99) mg/dL Plasma Lactic Acid Gurdeep (0.7-2.0) mmol/L Calcium (8.4-10.2) mg/dL Alkaline Phosphatase (38-126) U/L Total Creatine Kinase 212 H (30-135) U/L CK-MB (CK-2) 8.3 H* (0.0-2.4) ng/mL Troponin I 0.078 H* (0.000-0.034) ng/mL Total Protein (6.3-8.2) g/dL Albumin (3.5-5.0) g/dL 12/15/16 12/15/16 12/15/16 Range/Units 14:47 15:15 19:21 WBC (3.8-10.6) k/uL RBC (3.80-5.40) m/uL Hgb (11.4-16.0) gm/dL MCV (80.0-100.0) fL MCHC (31.0-37.0) g/dL RDW (11.5-15.5) % Plt Count (150-450) k/uL Neutrophils # (1.3-7.7) k/uL PT (9.0-12.0) sec INR (<1.2) Sodium (137-145) mmol/L Potassium 5.8 H (3.5-5.1) mmol/L Chloride 112 H (98-107) mmol/L Carbon Dioxide 15 L (22-30) mmol/L BUN 42 H (7-17) mg/dL Creatinine 1.37 H (0.52-1.04) mg/dL Glucose 118 H (74-99) mg/dL POC Glucose (mg/dL) (75-99) mg/dL Plasma Lactic Acid Gurdeep 4.7 H* 2.6 H* (0.7-2.0) mmol/L Calcium 8.2 L (8.4-10.2) mg/dL Alkaline Phosphatase 34 L (38-126) U/L Total Creatine Kinase (30-135) U/L CK-MB (CK-2) (0.0-2.4) ng/mL Troponin I (0.000-0.034) ng/mL Total Protein 5.2 L (6.3-8.2) g/dL Albumin 2.8 L (3.5-5.0) g/dL 12/15/16 12/16/16 12/16/16 Range/Units 23:53 05:35 05:35 WBC (3.8-10.6) k/uL RBC 3.67 L 3.58 L (3.80-5.40) m/uL Hgb 11.2 L (11.4-16.0) gm/dL MCV 103.4 H 103.4 H (80.0-100.0) fL MCHC 30.2 L (31.0-37.0) g/dL RDW 18.7 H 18.7 H (11.5-15.5) % Plt Count 116 L 117 L (150-450) k/uL Neutrophils # 7.9 H (1.3-7.7) k/uL PT (9.0-12.0) sec INR (<1.2) Sodium 136 L (137-145) mmol/L Potassium 5.3 H (3.5-5.1) mmol/L Chloride 114 H (98-107) mmol/L Carbon Dioxide 16 L (22-30) mmol/L BUN 47 H (7-17) mg/dL Creatinine 1.20 H (0.52-1.04) mg/dL Glucose (74-99) mg/dL POC Glucose (mg/dL) (75-99) mg/dL Plasma Lactic Acid Gurdeep (0.7-2.0) mmol/L Calcium 7.8 L (8.4-10.2) mg/dL Alkaline Phosphatase 36 L (38-126) U/L Total Creatine Kinase (30-135) U/L CK-MB (CK-2) (0.0-2.4) ng/mL Troponin I (0.000-0.034) ng/mL Total Protein 4.3 L (6.3-8.2) g/dL Albumin 2.2 L (3.5-5.0) g/dL 12/16/16 12/16/16 Range/Units 05:35 08:12 WBC (3.8-10.6) k/uL RBC (3.80-5.40) m/uL Hgb (11.4-16.0) gm/dL MCV (80.0-100.0) fL MCHC (31.0-37.0) g/dL RDW (11.5-15.5) % Plt Count (150-450) k/uL Neutrophils # (1.3-7.7) k/uL PT (9.0-12.0) sec INR (<1.2) Sodium (137-145) mmol/L Potassium (3.5-5.1) mmol/L Chloride (98-107) mmol/L Carbon Dioxide (22-30) mmol/L BUN (7-17) mg/dL Creatinine (0.52-1.04) mg/dL Glucose (74-99) mg/dL POC Glucose (mg/dL) 114 H (75-99) mg/dL Plasma Lactic Acid Gurdeep 2.4 H* (0.7-2.0) mmol/L Calcium (8.4-10.2) mg/dL Alkaline Phosphatase (38-126) U/L Total Creatine Kinase (30-135) U/L CK-MB (CK-2) (0.0-2.4) ng/mL Troponin I (0.000-0.034) ng/mL Total Protein (6.3-8.2) g/dL Albumin (3.5-5.0) g/dL Assessment and Plan Plan: 1. Acute GI bleed with acute blood loss anemia with hypovolemic shock requiring vasopressors. Source may be peptic ulcer disease but lower pathology is not excluded. Endoscopy with Dr. Mallory. Serial CBCs and transfuse for hemoglobin less than 7, vasopressor support. Dr Leigh for intensive care management. Protonix twice daily. 2. CKD stage III, creatinine slightly higher than previous, acute renal insufficiency with CK D stage III, most likely secondary to blood products, patient would be monitored closely, avoid nephrotoxins in maintain IV hydration 3. Atrial fibrillation with rapid ventricular rate with underlying chronic atrial fibrillation. Patient was on Cardizem drip which was discontinued. Patient will start amiodarone once hemodynamically stable. Cardiology is following. 4. Chronic diastolic heart failure, currently asymptomatic however its expected to decompensate secondary to the A. fib, monitor for symptoms, 5. Elevated troponin most likely related to perfusion mismatch, echocardiogram was performed last October, cardiology is following maintain verapamil for A. fib rate control at this time, patient is not a candidate on antiplatelet secondary to ongoing GI bleed 6. Hyperlipidemia on Lipitor which is resumed 7. Macrocytosis, abnormal red cell volume, vitamin B12 levels and RBC folate will be obtained 8. Lactic acidosis, patient should be monitored for sepsis, urinalysis will be obtained, 9. Severe pulmonary hypertension based on last echocardiogram right ventricle systolic pressure of 73, most likely secondary to valvular heart disease. Diuretics would be initiated once BP would stabilize 10. Severe tricuspid regurgitation and moderate mitral regurgitation and mild aortic wall sclerosis 11. Cyanotic toes left side 2 and 3 was on the first toe, with cellulitis on the left foot, bruising mainly on the right foot however as well as pedis pulses are diminished bilaterally. Absent, consult was made with Dr. Kerr. IV antibiotics for the cellulitis Levaquin 11. GI prophylaxis 13. Moderate protein calorie malnutrition with hypoalbuminemia, also with electrolyte abnormalities with hyperkalemia secondary to either the bruise sensitive bruising right leg plus blood loss DVT prophylaxis with LANDON hose, patient is not a candidate for chemical prophylaxis secondary to GI bleed Discharge plan: To be determined Impression and plan of care have been directed as dictated by the signing physician. Yvette العلي nurse practitioner acting as scribe for signing physician.
[2016-12-16 14:38] LABS: Manual Review Performed
[2016-12-16 18:11] LABS: ABG PCO2 19 mmHg (35-45); ABG PH 7.31 (7.35-7.45); ABG PO2 98 mmHg (83-108)
[2016-12-16 18:12] LABS: ABG Base Excess -16.1 mmol/L; ABG HCO3 9 mmol/L (21-25); ABG TCO2 10 mmol/L (19-24)
[2016-12-16] MEDS ORDERED: SODIUM BICARB 8.4% 50 ML SYR (1 MEQ/ML) IV ONE (18:30)
[2016-12-16 18:54] LABS: Anisocytosis Slight; CH 31.5; CHCM 31.1; HCT 25.3 % (34.0-46.0); HDW 2.69; Hypochromasia Slight; MCH 32.7 pg (25.0-35.0); MCV 102.2 fL (80.0-100.0); Macrocytosis Moderate; Mean Platelet Volume 10.1; RBC 2.47 m/uL (3.80-5.40); RDW 18.3 % (11.5-15.5); WBC 12.8 k/uL (3.8-10.6)
[2016-12-16 19:00] VITALS: BP 118/79
[2016-12-16] MEDS ORDERED: DEXTROSE 5% IN WATER 1,000 ML with SODIUM BICARB (1 MEQ/ML) 150 ML IV SCH (19:00)
[2016-12-16 19:02] LABS: HGB 8.1 gm/dL (11.4-16.0)
[2016-12-16] MEDS: PANTOPRAZOLE 40 MG/10 ML VIAL IVP SCH (20:42)
[2016-12-16 21:24] LABS: Appearance,Urine Cloudy (Clear); Bilirubin,Urine Negative (Negative); Glucose,Urine (UA) Negative (Negative); Ketones,Urine Negative (Negative); Leukocyte Esterase,Urine Large (Negative); Mucus,Urine Rare /hpf; Nitrite,Urine Negative (Negative); Particle Count 9752; Protein,Urine 1+ (Negative); RBC,Urine >182 /hpf (0-5); Specific Gravity,Urine 1.017 (1.001-1.035); Squamous Epithelial Cell,Urine 1 /hpf (0-4); UA Billing (MACRO vs. MICRO) MICRO; Urobilinogen,Urine <2.0 mg/dL (<2.0); WBC,Urine 69 /hpf (0-5)
--- NOTE | 2016-12-16 22:02 | XR ---
EXAMINATION TYPE: XR chest 1V confirm line [facility] DATE OF EXAM: 12/16/2016 COMPARISON: 10/27/2016 HISTORY: Central line placement TECHNIQUE: Single frontal view of the chest is obtained. FINDINGS: Since the prior study a right subclavian central line is in place, with tip superimposed ov er the lower right atrium, near the expected position of the suprahepatic IVC/right atrial junction. EKG leads noted. There is no pneumothorax. Lungs appear clear bilaterally. Pleural spaces are negative. Cardiomediasti nal silhouette and bones and soft tissues are unremarkable. IMPRESSION: RIGHT SUBCLAVIAN CENTRAL LINE TIP OVER THE LOWER RIGHT ATRIUM.
[2016-12-16] MEDS: ATORVASTATIN 10 MG TAB PO SCH (23:07)
[2016-12-16] MEDS: SENNOSIDES-DOCUSATE SODIUM 1 EACH TAB PO SCH (23:07)
[2016-12-17 00:26] LABS: Anisocytosis Slight; CH 32.8; CHCM 31.9; HDW 2.83; HGB 8.1 gm/dL (11.4-16.0); Hypochromasia Slight; MCH 32.5 pg (25.0-35.0); MCHC 31.2 g/dL (31.0-37.0); MCV 104.1 fL (80.0-100.0); Macrocytosis Moderate; Mean Platelet Volume 10.4; RDW 18.9 % (11.5-15.5); WBC 14.3 k/uL (3.8-10.6)
[2016-12-17] MEDS ORDERED: NOREPINEPHRIN 16 MG-0.9%NS PMX 16 MG/250 ML ML IV SCH (00:45)
[2016-12-17] MEDS ORDERED: ACETAMINOPHEN TAB 325 MG TAB PO PRN (00:55)
[2016-12-17] MEDS: AMIODARONE 450 MG in DEXTROSE 5% IN WATER 250 ML IV SCH ×2 (01:32)
[2016-12-17 03:08] VITALS: TEMP 96.3
[2016-12-17] MEDS ORDERED: FUROSEMIDE 10 MG/ML 10 ML VIAL IV STA (03:28)
[2016-12-17] MEDS ORDERED: ONDANSETRON 4 MG/2 ML VIAL IVP PRN (03:57)
[2016-12-17] MEDS ORDERED: DICYCLOMINE 10 MG CAP PO STA (04:26)
[2016-12-17] MEDS ORDERED: INSULIN LISPRO (humaLOG) 300 UNIT/3 ML VIAL SQ SCH (06:00)
[2016-12-17 06:06] LABS: Anisocytosis Slight; Basophils % (A) 0 %; CH 31.2; CHCM 30.4; Eosinophils % (A) 0 %; HCT 26.6 % (34.0-46.0); HDW 2.76; HGB 8.3 gm/dL (11.4-16.0); Hypochromasia Moderate; Luc # (Auto) 0.17; Luc % (Auto) 1; Lymphocytes # (A) 1.2 k/uL (1.0-4.8); Lymphocytes % (A) 8 %; MCH 32.3 pg (25.0-35.0); MCHC 31.2 g/dL (31.0-37.0); MCV 103.6 fL (80.0-100.0); Macrocytosis Moderate; Mean Platelet Volume 10.5; Monocytes # (A) 0.6 k/uL (0-1.0); Monocytes % (A) 3 %; Neutrophils # (A) 14.4 k/uL (1.3-7.7); Neutrophils % (A) 88 %; RBC 2.57 m/uL (3.80-5.40); RDW 18.8 % (11.5-15.5); WBC 16.4 k/uL (3.8-10.6); WBC (Perox) 17.35
[2016-12-17 06:12] LABS: Calcium 7.1 mg/dL (8.4-10.2); Magnesium 1.5 mg/dL (1.6-2.3); Phosphorous 3.7 mg/dL (2.5-4.5); Potassium 5.2 mmol/L (3.5-5.1)
[2016-12-17] MEDS ORDERED: SODIUM CHLORIDE 0.9% 1,000 ML IV ONE (06:31)
[2016-12-17] MEDS ORDERED: LORazepam 2 MG/ML SYRINGE IV PRN (06:37)
[2016-12-17] MEDS ORDERED: SODIUM BICARB 8.4% 50 ML SYR (1 MEQ/ML) IV ONE (06:45)
[2016-12-17 07:05] LABS: Glucose,Whole Blood 163 mg/dL (75-99)
[2016-12-17] MEDS ORDERED: SUCRALFATE 1 GM TAB PO SCH (07:30)
[2016-12-17] MEDS ORDERED: Magnesium Replacement Protocol 1 EACH MISC MISCELLANE PRN (07:40)
[2016-12-17] MEDS ORDERED: RX INFO: IV CONTRAST WAS GIVEN 1 EACH MISC MISCELLANE PRN (08:05)
[2016-12-17 08:19] LABS: ABG Base Excess -21.5 mmol/L; ABG HCO3 5 mmol/L (21-25); ABG PCO2 <15 mmHg (35-45); ABG PO2 163 mmHg (83-108); ABG TCO2 5 mmol/L (19-24)
[2016-12-17 08:43] VITALS: PULSE 113; RESP 28
[2016-12-17] MEDS ORDERED: SCOPOLAMINE 1.5MG/72HR PATCH TRANSDERM PRN (08:56)
[2016-12-17] MEDS ORDERED: guaiFENesin SYRUP 100MG/5ML 200 MG/10 ML CUP PO PRN (08:56)
[2016-12-17] MEDS ORDERED: ATROPINE OPHTH SOLN 1% 5ML BTL SUBLINGUAL PRN (08:56)
[2016-12-17] MEDS ORDERED: MORPHINE SULFATE 2 MG/ML SYRINGE IV PRN (08:56)
[2016-12-17] MEDS ORDERED: MORPHINE SULFATE (100 MG/2 ML) 100 MG in SODIUM CHLORIDE 0.9% 100 ML IV SCH (09:00)
[2016-12-17] MEDS: CLOTRIMAZOLE/BETAMETH 1-0.05% CREAM 45 GM TUBE TOPICAL SCH (09:07)
--- NOTE | 2016-12-17 09:39 | PCN ---
PROCEDURE NOTE OPERATIVE REPORT: Placement of a right subclavian central line. PREOPERATIVE DIAGNOSIS: Gastrointestinal bleeding, hypotension, atrial fibrillation with RVR. POSTOPERATIVE DIAGNOSIS: Gastrointestinal bleeding, hypotension, atrial fibrillation with RVR. ANESTHESIA USED: 2 mL of 1% lidocaine. PROCEDURE: The patient was placed in a Trendelenburg position, the area below the right subclavian was prepared in a sterile fashion and drapes were applied. Using the infraclavicular approach, the right subclavian vein was easily cannulated with 1 stick, then a guidewire was placed through the needle. The needle was removed, then a dilator was used over the guidewire. Then a triple-lumen catheter was inserted over the guidewire, via Seldinger technique, and the guidewire was removed. Good blood flow was noted in the 3 different ports of the triple-lumen catheter. No evidence of any immediate complications. Line was secured using 3-0 silk sutures. MMODL / IJN: [id number] /
--- NOTE | 2016-12-17 09:58 | P.PN ---
Subjective Principal diagnosis: gi bleed hemodynamic status worsened overnight.Increased cyanosis to bilateral lower extremities. Last bloody bowel movement around 6 pm yesterday. Hemoglobin 8.3. D-dimer 3.0. Lactic acid 10.7. IV pressors increased. IV bicarbonate. Family decided comfort care. Objective - Vital Signs Vital signs: Vital Signs Temp 96.3 F L 12/17/16 03:00 Pulse 113 H 12/17/16 08:30 Resp 28 H 12/17/16 08:30 BP 118/79 12/16/16 19:30 Pulse Ox 100 12/17/16 08:30 Intake & Output 12/16/16 12/17/16 12/17/16 18:59 06:59 18:59 Intake Total 2713.313 1252.643 150 Output Total 365 170 200 Balance 2348.313 1082.643 -50 Weight 82.8 kg Intake: IV 2700 825 150 Dextrose 5% in Water 1, 825 150 000 ml @ 75 mls/hr IV . [id number] TERRENCE with Sodium Bicarb (1 Meq/ml) 150 ml Rx#:[id number] Sodium Chloride 0.9% 1, 2700 000 ml @ 100 mls/hr IV . Q10H ONE Rx#:[id number] Intake, IV Titration 13.313 427.643 Amount Amiodarone 450 mg In 224.438 Dextrose 5% in Water 250 ml @ 1 MG/MIN 34.53 mls/ hr IV .[id number] TERRENCE Rx#: [id number] Norepinephrin 16 mg-0.9% 82.455 Ns Pmx 16 mg In 250 ml @ Titrate IV .Q0M TERRENCE Rx#: [id number] Norepinephrin 4 mg-0.9% 13.313 120.75 Ns Pmx 4 mg In 250 ml @ Titrate IV .Q0M TERRENCE Rx#: [id number] Output: Urine 165 170 0 Stool 200 200 Other: Voiding Method Indwelling Catheter Indwelling Catheter Indwelling Catheter # Bowel Movements 1 ABP, PAP, CO, CI - Last Documented Arterial Blood Pressure 89/44 - Exam General appearance: Unresponsive. HET: Head is normocephalic and atraumatic. Pupils are equal and reactive. Neck: Supple without lymphadenopathy. Trachea midline. Bipap. Heart: S1 S2. irregular. Lungs: No crackles or wheezes are heard. Abdomen: Soft, nondistended with hypoactive bowel sounds. No palpable organomegaly or masses. Extremities: Bilateral lower extremity starting distal tib/fib region with cyanosis left foot erythema with cyanotic appearing toes. Right foot with cyanotic toes. Bilateral hands/fingers with cyanosis. Neurological: unresponsive - Labs CBC & Chem 7: 12/17/16 05:30 12/17/16 05:30 Labs: Abnormal Lab Results - Last 24 Hours (Table) 12/16/16 12/16/16 12/16/16 Range/Units 08:02 09:31 09:35 WBC 15.1 H (3.8-10.6) k/uL RBC 2.96 L (3.80-5.40) m/uL Hgb 9.7 L D (11.4-16.0) gm/dL Hct 30.8 L (34.0-46.0) % MCV 104.0 H (80.0-100.0) fL MCHC (31.0-37.0) g/dL RDW 18.1 H (11.5-15.5) % Plt Count 119 L (150-450) k/uL Neutrophils # (1.3-7.7) k/uL PT (9.0-12.0) sec INR (<1.2) D-Dimer (<0.60) mg/L FEU ABG pH (7.35-7.45) ABG pCO2 (35-45) mmHg ABG pO2 (83-108) mmHg ABG HCO3 (21-25) mmol/L ABG Total CO2 (19-24) mmol/L ABG O2 Saturation (94-97) % ABG Lactic Acid (0.5-1.6) mmol/L Potassium (3.5-5.1) mmol/L Chloride (98-107) mmol/L Carbon Dioxide (22-30) mmol/L BUN (7-17) mg/dL Creatinine (0.52-1.04) mg/dL Glucose (74-99) mg/dL POC Glucose (mg/dL) (75-99) mg/dL Plasma Lactic Acid Gurdeep 3.7 H* (0.7-2.0) mmol/L Calcium (8.4-10.2) mg/dL Magnesium (1.6-2.3) mg/dL Troponin I 0.070 H* (0.000-0.034) ng/mL Urine Appearance (Clear) Urine Protein (Negative) Urine Blood (Negative) Ur Leukocyte Esterase (Negative) Urine RBC (0-5) /hpf Urine WBC (0-5) /hpf Urine Mucus (None) /hpf 12/16/16 12/16/16 12/16/16 Range/Units 13:15 13:16 13:47 WBC 12.7 H (3.8-10.6) k/uL RBC 2.96 L (3.80-5.40) m/uL Hgb 9.6 L (11.4-16.0) gm/dL Hct 31.3 L (34.0-46.0) % MCV 105.8 H (80.0-100.0) fL MCHC 30.7 L (31.0-37.0) g/dL RDW 18.3 H (11.5-15.5) % Plt Count 120 L (150-450) k/uL Neutrophils # 11.0 H (1.3-7.7) k/uL PT 12.7 H (9.0-12.0) sec INR 1.3 H (<1.2) D-Dimer (<0.60) mg/L FEU ABG pH (7.35-7.45) ABG pCO2 (35-45) mmHg ABG pO2 (83-108) mmHg ABG HCO3 (21-25) mmol/L ABG Total CO2 (19-24) mmol/L ABG O2 Saturation (94-97) % ABG Lactic Acid (0.5-1.6) mmol/L Potassium (3.5-5.1) mmol/L Chloride (98-107) mmol/L Carbon Dioxide (22-30) mmol/L BUN (7-17) mg/dL Creatinine (0.52-1.04) mg/dL Glucose (74-99) mg/dL POC Glucose (mg/dL) (75-99) mg/dL Plasma Lactic Acid Gurdeep (0.7-2.0) mmol/L Calcium (8.4-10.2) mg/dL Magnesium (1.6-2.3) mg/dL Troponin I 0.066 H* (0.000-0.034) ng/mL Urine Appearance (Clear) Urine Protein (Negative) Urine Blood (Negative) Ur Leukocyte Esterase (Negative) Urine RBC (0-5) /hpf Urine WBC (0-5) /hpf Urine Mucus (None) /hpf 12/16/16 12/16/16 12/16/16 Range/Units 18:04 18:42 21:10 WBC 12.8 H (3.8-10.6) k/uL RBC 2.47 L (3.80-5.40) m/uL Hgb 8.1 L D (11.4-16.0) gm/dL Hct 25.3 L (34.0-46.0) % MCV 102.2 H (80.0-100.0) fL MCHC (31.0-37.0) g/dL RDW 18.3 H (11.5-15.5) % Plt Count 115 L (150-450) k/uL Neutrophils # (1.3-7.7) k/uL PT (9.0-12.0) sec INR (<1.2) D-Dimer (<0.60) mg/L FEU ABG pH 7.31 L (7.35-7.45) ABG pCO2 19 L* (35-45) mmHg ABG pO2 (83-108) mmHg ABG HCO3 9 L* (21-25) mmol/L ABG Total CO2 10 L (19-24) mmol/L ABG O2 Saturation (94-97) % ABG Lactic Acid (0.5-1.6) mmol/L Potassium (3.5-5.1) mmol/L Chloride (98-107) mmol/L Carbon Dioxide (22-30) mmol/L BUN (7-17) mg/dL Creatinine (0.52-1.04) mg/dL Glucose (74-99) mg/dL POC Glucose (mg/dL) (75-99) mg/dL Plasma Lactic Acid Gurdeep (0.7-2.0) mmol/L Calcium (8.4-10.2) mg/dL Magnesium (1.6-2.3) mg/dL Troponin I (0.000-0.034) ng/mL Urine Appearance Cloudy H (Clear) Urine Protein 1+ H (Negative) Urine Blood Moderate H (Negative) Ur Leukocyte Esterase Large H (Negative) Urine RBC >182 H (0-5) /hpf Urine WBC 69 H (0-5) /hpf Urine Mucus Rare H (None) /hpf 12/16/16 12/17/16 12/17/16 Range/Units 22:00 00:15 05:30 WBC 14.3 H 16.4 H (3.8-10.6) k/uL RBC 2.50 L 2.57 L (3.80-5.40) m/uL Hgb 8.1 L 8.3 L (11.4-16.0) gm/dL Hct 26.0 L 26.6 L (34.0-46.0) % MCV 104.1 H 103.6 H (80.0-100.0) fL MCHC (31.0-37.0) g/dL RDW 18.9 H 18.8 H (11.5-15.5) % Plt Count 114 L 133 L (150-450) k/uL Neutrophils # 14.4 H (1.3-7.7) k/uL PT (9.0-12.0) sec INR (<1.2) D-Dimer (<0.60) mg/L FEU ABG pH (7.35-7.45) ABG pCO2 (35-45) mmHg ABG pO2 (83-108) mmHg ABG HCO3 (21-25) mmol/L ABG Total CO2 (19-24) mmol/L ABG O2 Saturation (94-97) % ABG Lactic Acid (0.5-1.6) mmol/L Potassium (3.5-5.1) mmol/L Chloride (98-107) mmol/L Carbon Dioxide (22-30) mmol/L BUN (7-17) mg/dL Creatinine (0.52-1.04) mg/dL Glucose (74-99) mg/dL POC Glucose (mg/dL) (75-99) mg/dL Plasma Lactic Acid Gurdeep (0.7-2.0) mmol/L Calcium (8.4-10.2) mg/dL Magnesium (1.6-2.3) mg/dL Troponin I 0.118 H* (0.000-0.034) ng/mL Urine Appearance (Clear) Urine Protein (Negative) Urine Blood (Negative) Ur Leukocyte Esterase (Negative) Urine RBC (0-5) /hpf Urine WBC (0-5) /hpf Urine Mucus (None) /hpf 12/17/16 12/17/16 12/17/16 Range/Units 05:30 05:30 05:30 WBC (3.8-10.6) k/uL RBC (3.80-5.40) m/uL Hgb (11.4-16.0) gm/dL Hct (34.0-46.0) % MCV (80.0-100.0) fL MCHC (31.0-37.0) g/dL RDW (11.5-15.5) % Plt Count (150-450) k/uL Neutrophils # (1.3-7.7) k/uL PT (9.0-12.0) sec INR (<1.2) D-Dimer 3.08 H (<0.60) mg/L FEU ABG pH (7.35-7.45) ABG pCO2 (35-45) mmHg ABG pO2 (83-108) mmHg ABG HCO3 (21-25) mmol/L ABG Total CO2 (19-24) mmol/L ABG O2 Saturation (94-97) % ABG Lactic Acid 10.7 H* (0.5-1.6) mmol/L Potassium 5.2 H (3.5-5.1) mmol/L Chloride 115 H (98-107) mmol/L Carbon Dioxide 6 L* (22-30) mmol/L BUN 47 H (7-17) mg/dL Creatinine 1.70 H (0.52-1.04) mg/dL Glucose 199 H (74-99) mg/dL POC Glucose (mg/dL) (75-99) mg/dL Plasma Lactic Acid Gurdeep (0.7-2.0) mmol/L Calcium 7.1 L (8.4-10.2) mg/dL Magnesium 1.5 L (1.6-2.3) mg/dL Troponin I (0.000-0.034) ng/mL Urine Appearance (Clear) Urine Protein (Negative) Urine Blood (Negative) Ur Leukocyte Esterase (Negative) Urine RBC (0-5) /hpf Urine WBC (0-5) /hpf Urine Mucus (None) /hpf 12/17/16 12/17/16 Range/Units 07:03 08:10 WBC (3.8-10.6) k/uL RBC (3.80-5.40) m/uL Hgb (11.4-16.0) gm/dL Hct (34.0-46.0) % MCV (80.0-100.0) fL MCHC (31.0-37.0) g/dL RDW (11.5-15.5) % Plt Count (150-450) k/uL Neutrophils # (1.3-7.7) k/uL PT (9.0-12.0) sec INR (<1.2) D-Dimer (<0.60) mg/L FEU ABG pH 7.30 L (7.35-7.45) ABG pCO2 <15 L* (35-45) mmHg ABG pO2 163 H (83-108) mmHg ABG HCO3 5 L* (21-25) mmol/L ABG Total CO2 5 L (19-24) mmol/L ABG O2 Saturation 99.0 H (94-97) % ABG Lactic Acid (0.5-1.6) mmol/L Potassium (3.5-5.1) mmol/L Chloride (98-107) mmol/L Carbon Dioxide (22-30) mmol/L BUN (7-17) mg/dL Creatinine (0.52-1.04) mg/dL Glucose (74-99) mg/dL POC Glucose (mg/dL) 163 H (75-99) mg/dL Plasma Lactic Acid Gurdeep (0.7-2.0) mmol/L Calcium (8.4-10.2) mg/dL Magnesium (1.6-2.3) mg/dL Troponin I (0.000-0.034) ng/mL Urine Appearance (Clear) Urine Protein (Negative) Urine Blood (Negative) Ur Leukocyte Esterase (Negative) Urine RBC (0-5) /hpf Urine WBC (0-5) /hpf Urine Mucus (None) /hpf Microbiology - Last 24 Hours (Table) 12/16/16 21:10 Urine Culture - Preliminary Urine,Catheterized Assessment and Plan (1) GI bleed Narrative/Plan: Symptomatic with hypotension suspect upper GI bleed possible bleeding peptic ulcer disease lower GI pathology cannot be entirely excluded. Status: Acute (2) Acute blood loss anemia Status: Acute (3) Atrial fibrillation Status: Chronic Plan: 1. Family decided comfort care. Assessment and plan of care discussed with Dr. Rousseau
--- NOTE | 2016-12-17 10:03 | OP ---
OPERATIVE REPORT OPERATIVE REPORT: Placement of right femoral arterial line. PREOPERATIVE DIAGNOSES: GI bleeding and hypotension as well as atrial fibrillation with RVR. POSTOPERATIVE DIAGNOSES: GI bleeding and hypotension as well as atrial fibrillation with RVR. ANESTHESIA: 4 mL of 1% lidocaine. PROCEDURE: The right groin was prepared in a sterile fashion, and patient was placed in the supine position. The area was locally anesthetized in the right groin. Then the right femoral artery was cannulated, and a guidewire was placed. A catheter was inserted over the guidewire, the guidewire was removed. Good blood flow was noted, good waveform was also noted, and no evidence of any immediate complications. The line was secured using 3.0 silk sutures. MMODL / IJN: [id number] /
[2016-12-17] MEDS: METOPROLOL TARTRATE 50 MG TAB PO SCH (11:45)
[2016-12-17] MEDS: PANTOPRAZOLE 40 MG/10 ML VIAL IVP SCH (11:45)
[2016-12-17] MEDS: MAGNESIUM SULFATE-D5W PMX 1 GM in DEXTROSE/WATER 1 100ML.BAG IVPB SCH (11:45)
--- NOTE | 2016-12-17 12:46 | P.PN ---
Subjective Principal diagnosis: Acute GI bleeding This is an 86-year-old female with history of chronic atrial fibrillation, maintained on the on aspirin, presented from [facility] with black colored stools. Patient is also known to have history of dementia, remote history of GI bleeding several years ago, does not recall having EGD or colonoscopy, patient presented to the ER with large liquid red bowel movements. Patient was admitted to [facility], apparently overnight the patient's condition deteriorated , she developed more bloody stools, and blood clots were noted, patient became hypotensive, transferred to the ICU received fluid boluses, follow-up hemoglobin showed a mild drop but not enough to require blood transfusion. Patient was also noted in A. fib and RVR, blood pressure is relatively low in spite of fluid boluses, hence levo fed was ordered. Patient was already seen by cardiology and gastroenterology, her coagulation profile is relatively unremarkable. Platelets are 119, INR is 1.2. Considering that the patient was transferred to the ICU, I was asked to see her on consultation. After evaluating the patient, I recommended that we monitor serial hemoglobin and hematocrit, started the patient on amiodarone drip for A. fib/RVR, and I recommended norepinephrine to be started for low blood pressure. Patient received a total of 3 L of fluid boluses over the last few hours since she was transferred to the ICU. Patient was reevaluated today on 12/17/2016. Overnight, the patient has taken a downhill course, and she was developing worsening metabolic lactic acidosis, and worsening shortness of breath. Patient was not making much urine, in spite of fluid boluses and in spite of Lasix given. Her bicarb this morning was noted to be 6, and her lactic acid was significantly elevated. BUN is up to 47 creatinine is up to 1.70. Patient remains on pressors for low blood pressure, hemoglobin is 8.3 today, it was 11.8 on admission. Considering the significant worsening over the last 24 hours, I felt that the patient may have developed ischemic bowel. And she clearly she is not a candidate for any surgical intervention. Family was at bedside, and I discussed the clinical picture with the family including her son. Different options were discussed, and we all felt at this point it is best to consider comfort care measures. Patient will remain DO NOT RESUSCITATE, and she will be placed on comfort care measures. I instructed the nurses to place on a nonrebreather mask, discontinue all the drips including the bicarb drip, norepinephrine drip, and the amiodarone drip. We'll arrange for the patient to be transferred to a private room and she'll be placed on morphine drip for comfort. Family seems to be quite satisfied with the decision. Objective - Vital Signs Vital signs: Vital Signs Temp 96.3 F L 12/17/16 03:00 Pulse 113 H 12/17/16 08:30 Resp 28 H 12/17/16 08:30 BP 118/79 12/16/16 19:30 Pulse Ox 100 12/17/16 08:30 Intake & Output 12/16/16 12/17/16 12/17/16 18:59 06:59 18:59 Intake Total 2713.313 1252.643 150.816 Output Total 365 170 200 Balance 2348.313 1082.643 -49.184 Weight 82.8 kg Intake: IV 2700 825 150 Dextrose 5% in Water 1, 825 150 000 ml @ 75 mls/hr IV . [id number] [facility] with Sodium Bicarb (1 Meq/ml) 150 ml Rx#:[id number] Sodium Chloride 0.9% 1, 2700 000 ml @ 100 mls/hr IV . Q10H ONE Rx#:[id number] Intake, IV Titration 13.313 427.643 0.816 Amount Amiodarone 450 mg In 224.438 Dextrose 5% in Water 250 ml @ 1 MG/MIN 34.53 mls/ hr IV .Q7H31M [facility] Rx#: [id number] Morphine Sulfate (100 mg/ 0.816 2 ml) 100 mg In Sodium Chloride 0.9% 100 ml @ 1 MG/HR 1.02 mls/hr IV . Q24H [facility] Rx#:[id number] Norepinephrin 16 mg-0.9% 82.455 Ns Pmx 16 mg In 250 ml @ Titrate IV .Q0M [facility] Rx#: [id number] Norepinephrin 4 mg-0.9% 13.313 120.75 Ns Pmx 4 mg In 250 ml @ Titrate IV .Q0M [facility] Rx#: [id number] Output: Urine 165 170 0 Stool 200 200 Other: Voiding Method Indwelling Catheter Indwelling Catheter Indwelling Catheter # Bowel Movements 1 ABP, PAP, CO, CI - Last Documented Arterial Blood Pressure 89/44 - Exam General appearance: Unresponsive. HET: Head is normocephalic and atraumatic. Pupils are equal and reactive. Neck: Supple without lymphadenopathy. Trachea midline. Bipap. Heart: S1 S2. irregular. Lungs: No crackles or wheezes are heard. Abdomen: Soft, nondistended with hypoactive bowel sounds. No palpable organomegaly or masses. Extremities: Bilateral lower extremity starting distal tib/fib region with cyanosis left foot erythema with cyanotic appearing toes. Right foot with cyanotic toes. Bilateral hands/fingers with cyanosis. Neurological: unresponsive - Labs CBC & Chem 7: 12/17/16 05:30 12/17/16 05:30 Labs: Abnormal Lab Results - Last 24 Hours (Table) 12/16/16 12/16/16 12/16/16 Range/Units 13:15 13:16 13:47 WBC 12.7 H (3.8-10.6) k/uL RBC 2.96 L (3.80-5.40) m/uL Hgb 9.6 L (11.4-16.0) gm/dL Hct 31.3 L (34.0-46.0) % MCV 105.8 H (80.0-100.0) fL MCHC 30.7 L (31.0-37.0) g/dL RDW 18.3 H (11.5-15.5) % Plt Count 120 L (150-450) k/uL Neutrophils # 11.0 H (1.3-7.7) k/uL PT 12.7 H (9.0-12.0) sec INR 1.3 H (<1.2) D-Dimer (<0.60) mg/L FEU ABG pH (7.35-7.45) ABG pCO2 (35-45) mmHg ABG pO2 (83-108) mmHg ABG HCO3 (21-25) mmol/L ABG Total CO2 (19-24) mmol/L ABG O2 Saturation (94-97) % ABG Lactic Acid (0.5-1.6) mmol/L Potassium (3.5-5.1) mmol/L Chloride (98-107) mmol/L Carbon Dioxide (22-30) mmol/L BUN (7-17) mg/dL Creatinine (0.52-1.04) mg/dL Glucose (74-99) mg/dL POC Glucose (mg/dL) (75-99) mg/dL Calcium (8.4-10.2) mg/dL Magnesium (1.6-2.3) mg/dL Troponin I 0.066 H* (0.000-0.034) ng/mL Urine Appearance (Clear) Urine Protein (Negative) Urine Blood (Negative) Ur Leukocyte Esterase (Negative) Urine RBC (0-5) /hpf Urine WBC (0-5) /hpf Urine Mucus (None) /hpf 12/16/16 12/16/16 12/16/16 Range/Units 18:04 18:42 21:10 WBC 12.8 H (3.8-10.6) k/uL RBC 2.47 L (3.80-5.40) m/uL Hgb 8.1 L D (11.4-16.0) gm/dL Hct 25.3 L (34.0-46.0) % MCV 102.2 H (80.0-100.0) fL MCHC (31.0-37.0) g/dL RDW 18.3 H (11.5-15.5) % Plt Count 115 L (150-450) k/uL Neutrophils # (1.3-7.7) k/uL PT (9.0-12.0) sec INR (<1.2) D-Dimer (<0.60) mg/L FEU ABG pH 7.31 L (7.35-7.45) ABG pCO2 19 L* (35-45) mmHg ABG pO2 (83-108) mmHg ABG HCO3 9 L* (21-25) mmol/L ABG Total CO2 10 L (19-24) mmol/L ABG O2 Saturation (94-97) % ABG Lactic Acid (0.5-1.6) mmol/L Potassium (3.5-5.1) mmol/L Chloride (98-107) mmol/L Carbon Dioxide (22-30) mmol/L BUN (7-17) mg/dL Creatinine (0.52-1.04) mg/dL Glucose (74-99) mg/dL POC Glucose (mg/dL) (75-99) mg/dL Calcium (8.4-10.2) mg/dL Magnesium (1.6-2.3) mg/dL Troponin I (0.000-0.034) ng/mL Urine Appearance Cloudy H (Clear) Urine Protein 1+ H (Negative) Urine Blood Moderate H (Negative) Ur Leukocyte Esterase Large H (Negative) Urine RBC >182 H (0-5) /hpf Urine WBC 69 H (0-5) /hpf Urine Mucus Rare H (None) /hpf 12/16/16 12/17/16 12/17/16 Range/Units 22:00 00:15 05:30 WBC 14.3 H 16.4 H (3.8-10.6) k/uL RBC 2.50 L 2.57 L (3.80-5.40) m/uL Hgb 8.1 L 8.3 L (11.4-16.0) gm/dL Hct 26.0 L 26.6 L (34.0-46.0) % MCV 104.1 H 103.6 H (80.0-100.0) fL MCHC (31.0-37.0) g/dL RDW 18.9 H 18.8 H (11.5-15.5) % Plt Count 114 L 133 L (150-450) k/uL Neutrophils # 14.4 H (1.3-7.7) k/uL PT (9.0-12.0) sec INR (<1.2) D-Dimer (<0.60) mg/L FEU ABG pH (7.35-7.45) ABG pCO2 (35-45) mmHg ABG pO2 (83-108) mmHg ABG HCO3 (21-25) mmol/L ABG Total CO2 (19-24) mmol/L ABG O2 Saturation (94-97) % ABG Lactic Acid (0.5-1.6) mmol/L Potassium (3.5-5.1) mmol/L Chloride (98-107) mmol/L Carbon Dioxide (22-30) mmol/L BUN (7-17) mg/dL Creatinine (0.52-1.04) mg/dL Glucose (74-99) mg/dL POC Glucose (mg/dL) (75-99) mg/dL Calcium (8.4-10.2) mg/dL Magnesium (1.6-2.3) mg/dL Troponin I 0.118 H* (0.000-0.034) ng/mL Urine Appearance (Clear) Urine Protein (Negative) Urine Blood (Negative) Ur Leukocyte Esterase (Negative) Urine RBC (0-5) /hpf Urine WBC (0-5) /hpf Urine Mucus (None) /hpf 12/17/16 12/17/16 12/17/16 Range/Units 05:30 05:30 05:30 WBC (3.8-10.6) k/uL RBC (3.80-5.40) m/uL Hgb (11.4-16.0) gm/dL Hct (34.0-46.0) % MCV (80.0-100.0) fL MCHC (31.0-37.0) g/dL RDW (11.5-15.5) % Plt Count (150-450) k/uL Neutrophils # (1.3-7.7) k/uL PT (9.0-12.0) sec INR (<1.2) D-Dimer 3.08 H (<0.60) mg/L FEU ABG pH (7.35-7.45) ABG pCO2 (35-45) mmHg ABG pO2 (83-108) mmHg ABG HCO3 (21-25) mmol/L ABG Total CO2 (19-24) mmol/L ABG O2 Saturation (94-97) % ABG Lactic Acid 10.7 H* (0.5-1.6) mmol/L Potassium 5.2 H (3.5-5.1) mmol/L Chloride 115 H (98-107) mmol/L Carbon Dioxide 6 L* (22-30) mmol/L BUN 47 H (7-17) mg/dL Creatinine 1.70 H (0.52-1.04) mg/dL Glucose 199 H (74-99) mg/dL POC Glucose (mg/dL) (75-99) mg/dL Calcium 7.1 L (8.4-10.2) mg/dL Magnesium 1.5 L (1.6-2.3) mg/dL Troponin I (0.000-0.034) ng/mL Urine Appearance (Clear) Urine Protein (Negative) Urine Blood (Negative) Ur Leukocyte Esterase (Negative) Urine RBC (0-5) /hpf Urine WBC (0-5) /hpf Urine Mucus (None) /hpf 12/17/16 12/17/16 Range/Units 07:03 08:10 WBC (3.8-10.6) k/uL RBC (3.80-5.40) m/uL Hgb (11.4-16.0) gm/dL Hct (34.0-46.0) % MCV (80.0-100.0) fL MCHC (31.0-37.0) g/dL RDW (11.5-15.5) % Plt Count (150-450) k/uL Neutrophils # (1.3-7.7) k/uL PT (9.0-12.0) sec INR (<1.2) D-Dimer (<0.60) mg/L FEU ABG pH 7.30 L (7.35-7.45) ABG pCO2 <15 L* (35-45) mmHg ABG pO2 163 H (83-108) mmHg ABG HCO3 5 L* (21-25) mmol/L ABG Total CO2 5 L (19-24) mmol/L ABG O2 Saturation 99.0 H (94-97) % ABG Lactic Acid (0.5-1.6) mmol/L Potassium (3.5-5.1) mmol/L Chloride (98-107) mmol/L Carbon Dioxide (22-30) mmol/L BUN (7-17) mg/dL Creatinine (0.52-1.04) mg/dL Glucose (74-99) mg/dL POC Glucose (mg/dL) 163 H (75-99) mg/dL Calcium (8.4-10.2) mg/dL Magnesium (1.6-2.3) mg/dL Troponin I (0.000-0.034) ng/mL Urine Appearance (Clear) Urine Protein (Negative) Urine Blood (Negative) Ur Leukocyte Esterase (Negative) Urine RBC (0-5) /hpf Urine WBC (0-5) /hpf Urine Mucus (None) /hpf Microbiology - Last 24 Hours (Table) 12/16/16 21:10 Urine Culture - Preliminary Urine,Catheterized Assessment and Plan Plan: Impression: 1 acute GI bleeding, most likely secondary to ischemic colitis. And ischemic bowel. 2 acute anemia secondary to blood loss 3 chronic atrial fibrillation, 4 history of compensated systolic congestive heart failure, hypertension, osteoarthritis. 5 acute tubular necrosis and acute renal failure 6 severe metabolic acidosis secondary to ischemic bowel. Recommendation: Discussed the clinical picture with family at bedside, all felt that it would be best to place the patient on comfort care measures, and left the patient pass with comfort and dignity and peace. Critical care time is 35 minutes Time with Patient: Greater than 30
--- NOTE | 2016-12-17 16:45 | P.DS ---
Providers Date of admission: 12/15/16 15:05 Expected date of discharge: 12/17/16 Attending physician: Alie Barreto Consults: 12/15/16 18:35 Consult Physician Routine Consulting Provider: Chris Mallory Consult Reason/Comments: Afib RVR, elevated trop Do you want consulting provider notified?: Yes, Notify in am 12/15/16 19:01 Consult Physician Routine Consulting Provider: Anshu Kerr Consult Reason/Comments: PAD cyanotic toes Do you want consulting provider notified?: Yes, Notify in am 12/16/16 08:19 Consult Physician Stat Consulting Provider: Bassem Allison Consult Reason/Comments: ICU MANAGEMENT Do you want consulting provider notified?: Yes Primary care physician: Alie Barreto Hospital Course: This is an 86-year-old pleasant lady patient patient of Dr. Jordan currently under the care of Dr. Barreto [facility] [place] underlying history of chronic atrial fibrillation chronic not on any anticoagulation and to intermittent GI bleed, also with hypertensive cardiovascular disease, CHF, who was transferred to emergency room secondary to weakness and melanocytic stools 2 days. Stools were noted to be black without any diarrhea , she was constipated no abdominal pain however she has chronic recurrent nausea , previous cholecystectomy secondary to gallbladder stones in the past, patient requires Zofran intermittently and patient has been be selecting certain folds secondary to recurrent nausea patient denies any cough no fever no chills patient has discomfort in the left leg, she also has a big bruise on the right leg from the knee down secondary to fall at home from 2 months ago,. Patient has cyanotic toes however patient denies any discomfort on this toes in the emergency room patient was noted to have a rapid ventricular rate with atrial fibrillation, also for evaluation off the dark stools, occult postoperative according to the ER doctor, and would be admitted for the atrial fibrillation and consultation were made with cardiology as well as GI. Further investigations to include her lower circulation secondary to the cyanotic toes that was noted and cold feet, and was started on Cardizem IV for the atrial fibrillation and cellulitis of the foot is also currently being treated during this admission with possible ischemic toes a consult with Dr. Kerr from vascular surgery 12/16: Patient is started having burgundy stools and passed out in the bathroom and transferred to the intensive care unit. Repeat hemoglobin was 9.7. Consult added per Dr. Leigh for intensive care management. Patient was on a Cardizem drip now with plan to start amiodarone watch blood pressure is improved. She is on vasopressors. Patient has been seen by GI with recommendations for Protonix twice daily and EGD when stable. Cardiology is following the patient for chronic atrial fibrillation. Dr. Kerr is on consult for ischemic left toes. 12/17: Patient was made hospice care per family member early this morning, patient was transferred out of ICU, patient was agonal when seen, has a nonrebreather mask, no discomfort noted family is aware of immediate Final diagnosis and care: 1. Acute GI bleed with acute blood loss anemia with hypovolemic shock requiring vasopressors. unable to rule-out progression to ruptured duodenal ulcer with bleed. Source may be peptic ulcer disease but lower pathology is not excluded. Endoscopy with Dr. Mallory. Serial CBCs and transfuse for hemoglobin less than 7, vasopressor support. Dr Leigh for intensive care management. Protonix twice daily. 2. CKD stage III, creatinine slightly higher than previous, acute renal insufficiency with CK D stage III, most likely secondary to blood products, patient would be monitored closely, avoid nephrotoxins in maintain IV hydration 3. Atrial fibrillation with rapid ventricular rate with underlying chronic atrial fibrillation. Patient was on Cardizem drip which was discontinued. Patient will start amiodarone once hemodynamically stable. Cardiology is following. 4. Chronic diastolic heart failure, currently asymptomatic however its expected to decompensate secondary to the A. fib, monitor for symptoms, 5. Elevated troponin most likely related to perfusion mismatch, echocardiogram was performed last October, cardiology is following maintain verapamil for A. fib rate control at this time, patient is not a candidate on antiplatelet secondary to ongoing GI bleed 6. Hyperlipidemia on Lipitor which is resumed 7. Macrocytosis, abnormal red cell volume, vitamin B12 levels and RBC folate will be obtained 8. Lactic acidosis, patient should be monitored for sepsis, urinalysis will be obtained, 9. Severe pulmonary hypertension based on last echocardiogram right ventricle systolic pressure of 73, most likely secondary to valvular heart disease. Diuretics would be initiated once BP would stabilize 10. Severe tricuspid regurgitation and moderate mitral regurgitation and mild aortic wall sclerosis 11. Cyanotic toes left side 2 and 3 was on the first toe, with cellulitis on the left foot, bruising mainly on the right foot however as well as pedis pulses are diminished bilaterally. Absent, consult was made with Dr. Kerr. IV antibiotics for the cellulitis Karen Patient on 12/17/2016 Hospice care Primary cause of , upper GI bleeding most likely secondary to possible peptic ulcer disease bleed Secondary cause of atrial fibrillation with rapid ventricular rate not on any anticoagulation prior to admission Tertiary cause of , chronic diastolic heart failure with severe pulmonary hypertension CK D stage III severe tricuspid regurgitation Patient Condition at Discharge: Fair Plan - Discharge Summary New Discharge Prescriptions: No Action Aspirin EC [Ecotrin] 325 mg PO DAILY@0900 Verapamil HCl [Verapamil ER] 120 mg PO HS Metoprolol Tartrate [Lopressor] 50 mg PO TID #90 tab Triamcinolone 0.1% Cream [Kenalog] 1 applicatio TOPICAL Q12H Ondansetron [Zofran] 4 mg PO Q6H PRN PRN Reason: Nausea Sennosides-Docusate Sodium [Senokot-S] 2 tab PO HS Atorvastatin [Lipitor] 10 mg PO HS@2100 Acetaminophen [Tylenol Arthritis] 650 mg PO Q8H Clotrimazole/Betamethasone Dip [Lotrisone Cream] 1 applic TOPICAL BID Discharge Medication List Aspirin EC [Ecotrin] 325 mg PO DAILY@0900 10/27/16 [History] Verapamil HCl [Verapamil ER] 120 mg PO HS 10/27/16 [History] Metoprolol Tartrate [Lopressor] 50 mg PO TID #90 tab 11/01/16 [Rx] Acetaminophen [Tylenol Arthritis] 650 mg PO Q8H 12/15/16 [History] Atorvastatin [Lipitor] 10 mg PO HS@2100 12/15/16 [History] Clotrimazole/Betamethasone Dip [Lotrisone Cream] 1 applic TOPICAL BID 12/15/16 [ History] Ondansetron [Zofran] 4 mg PO Q6H PRN 12/15/16 [History] Sennosides-Docusate Sodium [Senokot-S] 2 tab PO HS 12/15/16 [History] Triamcinolone 0.1% Cream [Kenalog] 1 applicatio TOPICAL Q12H 12/15/16 [History] Follow up Appointment(s)/Referral(s): Alie Barreto MD [Primary Care Provider] - 1-2 days Discharge Disposition: - Preliminary Cause of Preliminary Cause of : gi bleeding suspect upper and lower GI source
== END 2016-12-17 15:20 | disposition expired | DRG 377 ==
LOC: EC 14:38 → 6SEL 15:05 → 6ICU 12-16 08:26 → 5ONC 12-17 10:48
PROVIDERS: ADMIT Internal Medicine; ATTEND Internal Medicine
PROC: 04HY32Z Insertion of Monitoring Device into Lower Artery, Percutaneous Approach (ICD-10-PCS; principal; 2016-12-16)
PROC: 06H033Z Insertion of Infusion Device into Inferior Vena Cava, Percutaneous Approach (ICD-10-PCS; 2016-12-16)
DX: K26.6 Chronic or unspecified duodenal ulcer with both hemorrhage and perforation (principal); N17.0 Acute kidney failure with tubular necrosis; R57.1 Hypovolemic shock; E87.2 Acidosis; E44.0 Moderate protein-calorie malnutrition; D62 Acute posthemorrhagic anemia; I13.0 Hypertensive heart and chronic kidney disease with heart failure and stage 1 through stage 4 chronic kidney disease, or unspecified chronic kidney disease; F03.90 Unspecified dementia, unspecified severity, without behavioral disturbance, psychotic disturbance, mood disturbance, and anxiety; I50.32 Chronic diastolic (congestive) heart failure; I48.2 Chronic atrial fibrillation; L03.116 Cellulitis of left lower limb; N18.3 Chronic kidney disease, stage 3 (moderate); I27.2 Other secondary pulmonary hypertension; Z51.5 Encounter for palliative care; Z66 Do not resuscitate; E87.5 Hyperkalemia; I36.1 Nonrheumatic tricuspid (valve) insufficiency; I34.0 Nonrheumatic mitral (valve) insufficiency; I35.8 Other nonrheumatic aortic valve disorders; S90.31XS Contusion of right foot, sequela; S80.11XS Contusion of right lower leg, sequela; R11.0 Nausea; R53.1 Weakness; K59.00 Constipation, unspecified; T45.516A Underdosing of anticoagulants, initial encounter; R26.9 Unspecified abnormalities of gait and mobility; R74.8 Abnormal levels of other serum enzymes; D75.89 Other specified diseases of blood and blood-forming organs; M19.90 Unspecified osteoarthritis, unspecified site; R55 Syncope and collapse; R23.0 Cyanosis; E78.5 Hyperlipidemia, unspecified; Z90.49 Acquired absence of other specified parts of digestive tract; Z82.49 Family history of ischemic heart disease and other diseases of the circulatory system; Z79.899 Other long term (current) drug therapy; Z88.5 Allergy status to narcotic agent; Z88.0 Allergy status to penicillin; Z86.19 Personal history of other infectious and parasitic diseases; Z87.19 Personal history of other diseases of the digestive system; Z96.653 Presence of artificial knee joint, bilateral; Z96.643 Presence of artificial hip joint, bilateral; Z68.30 Body mass index [BMI] 30.0-30.9, adult; Z90.710 Acquired absence of both cervix and uterus; Z79.82 Long term (current) use of aspirin; Z91.14 Patient's other noncompliance with medication regimen; W19.XXXS Unspecified fall, sequela
CPT/HCPCS: 36415; 80048; 80053; 81001; 82550; 82553; 82607; 82747; 82805; 83605; 83690; 83735; 84100; 84484; 85025; 85027; 85379; 85610; 85730; 86850; 86870; 86880; 86900; 86901; 87086; 93005; 94760; 96361; 96374; 96375; 99285